=== PATIENT | male | born 1930 | race Caucasian/White ===

== ENCOUNTER 2016-10-30 11:42 | Inpatient (IN) | payer MEDICARE ==
[~2016-10-30] VITALS: Ht 180.3 cm; Wt 291.9 kg
[~2016-10-30 11:42] MED LIST: /WARF5TA; ALDA25TA2 PO; ALLO300T PO; ANTI25TA; ASPI1TAB PO; AVAP300T; BISO5TAB5 PO; CAPT12.5; CARV6.25 PO; COLC0.6T; COUM1TAB17 PO; COUM2TAB10 PO; DEMA20TA6 PO; ELIQ5TAB PO; FURO1TAB15 PO; FURO40TA2; FURO40TA2 PO; GLIM1TAB PO; LASI40TA PO; LASI80TA; LISI-542 PO; LISI25TA PO; LOPR50TA; SILV1CRE19 TOP; SIMV40TA2 PO; SYMB16INH INH; WARF-60 PO; ZOCO80TA PO; ZYLO300T4 PO
[2016-10-30 12:26] LABS: BASO # 0.1 K/mm3 (0.0-0.2); BASO % 0.8 % (0.0-1.0); EOS # 0.1 K/mm3 (0.0-0.50); EOS % 0.7 % (0.0-3.0); LARGE UNSTAINED CELL # 0.2 K/mm3 (0.0-0.4); LYMPH # 0.6 K/mm3 (1.5-4.5); LYMPH % 2.4 % (24.0-44.0); MEAN CORPUSCULAR HEMOGLOBIN 29.4 pg (27.0-33.0); MEAN CORPUSCULAR VOLUME 91.8 fl (80.0-96.0); MONO # 0.4 K/mm3 (0.0-0.8); MONO % 2.3 % (0.0-5.0); NEUTROPHILS # 15.5 K/mm3 (1.8-7.7); NEUTROPHILS % 92.8 % (36.0-66.0); PLATELET COUNT, AUTOMATED 179 k/mm3 (150-450); RED CELL DISTRIBUTION WIDTH 15.2 % (11.5-14.5); WHITE BLOOD COUNT 16.7 K/mm3 (4.0-10.0)
[2016-10-30 12:55] LABS: ALBUMIN/GLOBULIN RATIO 0.39 (1.00-1.93); ALKALINE PHOSPHATASE 89 U/L (45-117); ALT/SGPT 14 U/L (12-78); ANION GAP 6 MEQ/L (8-16); AST/SGOT 23 U/L (15-37); BILIRUBIN,DIRECT 0.2 MG/DL (0.0-0.2); BILIRUBIN,TOTAL 0.5 MG/DL (0.2-1.0); BLOOD UREA NITROGEN 21 MG/DL (7-18); CALCIUM LEVEL 9.5 MG/DL (8.8-10.2); CARBON DIOXIDE LEVEL 37 MEQ/L (21-32); CHLORIDE LEVEL 94 MEQ/L (98-107); GLOMERULAR FILTRATION RATE > 60.0 (>35); GLUCOSE, FASTING 94 MG/DL (83-110); POTASSIUM SERUM 4.3 MEQ/L (3.5-5.1); SODIUM LEVEL 137 MEQ/L (136-145); TOTAL PROTEIN 7.1 GM/DL (6.4-8.2)
[2016-10-30] MEDS ORDERED: IPRATROPIUM 0.5MG/ALBUTEROL 2.5MG INH SOL UD 3ML (DUONEB)(J7620) As Ordered ONE (13:34)
--- NOTE | 2016-10-30 13:37 | REP ---
Clinical: Shortness of breath. Technique: PA and lateral. Comparison: 07/03/2016. Findings: Cardiomegaly with pacemaker and valve replacement stable and unchanged. Lung herrera demonstrate chronic changes primarily involving the bilateral lung bases. Superimposed acute basilar atelectasis cannot be excluded. Along with possible small right acute versus chronic pleural reaction. No pneumothorax. Skeletal structures stable. Impression: Relatively stable examination as described above. Cannot exclude trace basilar atelectasis or small acute right pleural reaction. Signed by Sheldon Dickson MD 10/30/2016 01:28 P
[2016-10-30 13:46] LABS: ABG BASE EXCESS 10.7 (-2.0-2.0); ABG DEVICE NASAL CANN; ABG PARTIAL PRESSURE CO2 51.1 mmHg (35.0-45.0); ABG PARTIAL PRESSURE O2 111.7 mmHg (75.0-100.0); ABG STANDARD HCO3 34.5 MEQ/L (22.0-26.0); ABG TOTAL CO2 37.6 MEQ/L (23.0-31.0); ABG pH (ARTERIAL) 7.466 UNITS (7.350-7.450)
[2016-10-30] MEDS ORDERED: ISOVUE-370 76% 100ML VIAL (Q9967) As Ordered ONE (14:08)
--- NOTE | 2016-10-30 14:47 | REP ---
Clinical: Acute chest pain and shortness of breath. Technique: Axial contrast enhanced images from the thoracic inlet to the upper abdomen using 100 ml Isovue 370 intravenous contrast material with coronal and sagittal re-formations. Findings: Respiratory motion significantly limits evaluation. No obvious main or first order pulmonary emboli are identified and evaluation of the more distal pulmonary arterial system is limited. Thoracic aorta demonstrates atherosclerotic changes without aneurysm or dissection. Heart and pericardium demonstrate degenerative changes and evidence for aortic valve repair without cardiomegaly or pericardial effusion. Lung herrera demonstrate chronic changes along with bibasilar atelectasis and small pleural reactions (right greater than left). No pneumothorax. No adenopathy. Skeletal structures demonstrate degenerative changes without focal osseous abnormality Impression: Limited examination but without obvious pulmonary emboli. Mild bibasilar atelectasis and small pleural reactions (right greater than left). Signed by Sheldon Dickson MD 10/30/2016 02:38 P
[2016-10-30] MEDS ORDERED: BISO5TAB5 PO (16:39)
[2016-10-30] MEDS ORDERED: VITA500046 PO (16:39)
[2016-10-30] MEDS ORDERED: TORS20TA2 PO ×2 (16:39)
[2016-10-30] MEDS ORDERED: ELIQ5TAB PO (16:39)
[2016-10-30] MEDS ORDERED: LISI25TA PO (16:39)
[2016-10-30] MEDS ORDERED: IPRATROPIUM 0.5MG/ALBUTEROL 2.5MG INH SOL UD 3ML (DUONEB)(J7620) NEB PRN (18:30)
[2016-10-30] MEDS ORDERED: BISACODYL 5 MG TAB PO PRN (18:30)
[2016-10-30] MEDS ORDERED: ONDANSETRON 4MG/2ML VIAL (J2405) IV PRN (18:30)
--- NOTE | 2016-10-30 20:01 | ECGEPIP ---
Stationary ECG Study [facility] - ED Test Date: 2016-10-30 Pat Name: MITCH MILLIGAN Department: Room: - Gender: M Quality Tester: : 1930 Requested By: rGetel Dawson Order Number: [id number] Reading MD: Gretel Dawson Measurements Intervals [place] Rate: 72 P: MO: 0 QRS: 12 QRSD: 93 T: 43 QT: 368 QTc: 403 Interpretive Statements ATRIAL FIBRILLATION LOW QRS VOLTAGE IN EXTREMITY LEADS ABNORMAL RHYTHM ECG PRWP NSTTW ABNORMALITY Electronically Signed On 10-30-2016 20:01:14 EST by Gretel Dawson
[2016-10-30] MEDS: HumaLOG INSULIN (NovoLOG) PER UNIT SC SCH (21:00)
[2016-10-30] MEDS ORDERED: HEPARIN SOD (PORCINE) 5000 UNITS/ML VIAL SQ SCH (21:00)
[2016-10-30] MEDS ORDERED: DEXTROSE 50% 50 ML SYRINGE IV PRN (22:00)
[2016-10-30] MEDS ORDERED: GLUCOSE 4 GM CHEW TABLET PO PRN (22:00)
[2016-10-30] MEDS ORDERED: GLUCAGON FOR INJ 1 MG VIAL (J1610) SC PRN (22:00)
[2016-10-30 22:20] VITALS: BP 122/65
[2016-10-30] MEDS ORDERED: AZITHROMYCIN INJ 500MG VIAL (J0456) As Ordered ONE (22:28)
[2016-10-30] MEDS ORDERED: FUROSEMIDE 40 MG/4 ML VIAL (J1940) As Ordered ONE (22:28)
[2016-10-30] MEDS: AZITHROMYCIN INJ 500 MG, VIAL MATE ADAPTER 1 EACH in D5W 250 ML IV SCH (22:35)
[2016-10-30] MEDS: FUROSEMIDE 40 MG/4 ML VIAL (J1940) IV SCH (22:35)
[2016-10-30 23:06] LABS: INR 1.38
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
[2016-10-31] VITALS (7 sets, daily range): BP systolic 95–182; BP diastolic 50–79; O2SAT 99
[2016-10-31] MEDS: cefTRIAXone SOD 2 GM in D5W MINI-BAG PLUS 50 ML IV SCH ×2 (01:12→22:45)
[2016-10-31] MEDS ORDERED: IPRATROPIUM 0.5MG/ALBUTEROL 2.5MG INH SOL UD 3ML (DUONEB)(J7620) As Ordered ONE (01:58)
[2016-10-31] MEDS: IPRATROPIUM 0.5MG/ALBUTEROL 2.5MG INH SOL UD 3ML (DUONEB)(J7620) NEB SCH ×4 (02:07→20:00)
[2016-10-31] MEDS ORDERED: FUROSEMIDE 40 MG/4 ML VIAL (J1940) As Ordered ONE (03:25)
[2016-10-31] MEDS: FUROSEMIDE 40 MG/4 ML VIAL (J1940) IV SCH ×4 (03:34→22:45)
[2016-10-31 07:25] LABS: BASO % 0.2 % (0.0-1.0); EOS # 0.1 K/mm3 (0.0-0.50); EOS % 0.8 % (0.0-3.0); LARGE UNSTAINED CELL # 0.3 K/mm3 (0.0-0.4); LARGE UNSTAINED CELL % 2.5 % (0.0-4.0); LYMPH # 0.5 K/mm3 (1.5-4.5); LYMPH % 3.8 % (24.0-44.0); MEAN CORPUSCULAR HEMOGLOBIN 29.6 pg (27.0-33.0); MEAN CORPUSCULAR HGB CONC 32.2 g/dl (32.0-36.5); MEAN CORPUSCULAR VOLUME 91.9 fl (80.0-96.0); MONO # 0.5 K/mm3 (0.0-0.8); MONO % 4.1 % (0.0-5.0); NEUTROPHILS # 11.6 K/mm3 (1.8-7.7); NEUTROPHILS % 88.7 % (36.0-66.0); PLATELET COUNT, AUTOMATED 161 k/mm3 (150-450); RED CELL DISTRIBUTION WIDTH 14.3 % (11.5-14.5); WHITE BLOOD COUNT 13.1 K/mm3 (4.0-10.0)
[2016-10-31 07:44] LABS: ANION GAP 9 MEQ/L (8-16); BLOOD UREA NITROGEN 22 MG/DL (7-18); CALCIUM LEVEL 8.6 MG/DL (8.8-10.2); CARBON DIOXIDE LEVEL 34 MEQ/L (21-32); CHLORIDE LEVEL 94 MEQ/L (98-107); CHOLESTEROL LEVEL 104 MG/DL (<200); CREATININE FOR GFR 0.96 MG/DL (0.70-1.30); GLOMERULAR FILTRATION RATE > 60.0 (>35); GLUCOSE, FASTING 106 MG/DL (83-110); POTASSIUM SERUM 3.6 MEQ/L (3.5-5.1); SODIUM LEVEL 137 MEQ/L (136-145); TRIGLYCERIDES LEVEL 77 MG/DL (<150)
[2016-10-31] MEDS ORDERED: GLIMEPIRIDE 1 MG TABLET PO SCH (08:00)
[2016-10-31] MEDS ORDERED: HumaLOG INSULIN (NovoLOG) PER UNIT As Ordered ONE (09:17)
[2016-10-31] MEDS: HumaLOG INSULIN (NovoLOG) PER UNIT SC SCH ×4 (09:20→21:00)
[2016-10-31] MEDS: BISOPROLOL FUMARATE 5 MG TAB PO SCH (09:21)
[2016-10-31] MEDS: ALLOPURINOL 300 MG TAB PO SCH (09:21)
[2016-10-31] MEDS: LISINOPRIL *2.5 MG* TAB PO SCH (09:21)
[2016-10-31] MEDS: ASPIRIN 81 MG ENTERIC TAB PO SCH (09:21)
[2016-10-31] MEDS: APIXABAN 5 MG TAB (ELIQUIS) PO SCH ×2 (09:22→21:16)
[2016-10-31] MEDS: SYMBICORT 160/4.5MCG INHALER 6GM INH SCH ×2 (09:22→21:07)
[2016-10-31] MEDS ORDERED: ACETAMINOPHEN TAB 650MG DOSE (2X325MG) As Ordered ONE (12:32)
[2016-10-31] MEDS: ACETAMINOPHEN TAB 650MG DOSE (2X325MG) PO PRN (12:33)
--- NOTE | 2016-10-31 13:09 | EDDOCDS ---
Nurse's Notes [facility] Name: Mitch Milligan Age: 86 yrs Sex: Male : 1930 Arrival Date: 10/30/2016 Time: 11:42 Bed Admit Hold Private MD: David Henderson N Diagnosis: Shortness of breath-Hypoxia Presentation: 10/30 11:45 Presenting complaint: EMS states: weakness with SOB for the last couple of days. dy FSBS-99 mg/dl. Suicide/Homicide risk assessment- the patient denies having any suicidal and/or homicidal ideations and does not present with any other emotional, behavioral or mental health complaints. Status: Patient is not a manager client service or dependent. Transition of care: patient was not received from another setting of care. 11:45 Acuity: JESSICA Level 3 dy 11:45 Method Of Arrival: Ambulance dy 20:12 Adult Sepsis Screening: The patient does not have new or worsening altered mentation. af2 Patient's respiratory rate is less than 22. Systolic blood pressure is greater than 100. Patient has a qSOFA score of 0- Negative Sepsis Screen. Triage Assessment: 12:11 General: Appears in no apparent distress, Behavior is cooperative. dy Historical: - Allergies: No known drug Allergies; - Home Meds: 1. allopurinol 300 mg Oral tab 1 tab once daily 2. aspirin 81 mg Oral chew 1 tab once daily 3. bisoprolol fumarate 2.5 mg oral twice a day 4. Eliquis 5 mg oral tab 2 times per day 5. glimepiride 1 mg Oral tab 1 tab once daily 6. lisinopril 2.5 mg Oral tab once daily 7. simvastatin 80 mg Oral tab daily 8. Symbicort 160-4.5mcg act. 2 puffs BID 9. torsemide 20 mg oral tab 1 tab twice a day - PMHx: CAD; Hypercholesterolemia; Hypertension; - PSHx: Pacemaker insertion 2004; - Social history: Smoking status: No barriers to communication noted, The patient speaks fluent Frisian, Speaks appropriately for age. - Family history: Not pertinent. - : The pt / caregiver states he / she is on anticoagulants: Eliquis Unable to Verify Home Med List with the patient / caregiver. - Exposure Risk Screening:: None identified. Screenin:11 Screening information is obtained from the patient. Fall risk: At risk due to age, The af2 following interventions are performed due to a positive Fall Risk Screen: Fall Risk is added to Special Handling on the patient Summary Screen. A Fall Risk Bracelet was applied to the patient. Side Rails are placed in the up position. A Call Martinez is given with instruction to call for help when getting out of bed. Assistance ADL's: requires no assistance with activities of daily living. Abuse/DV Screen: The patient / caregiver reports he/she is: not in a situation that causes fear, pain or injury. Nutritional screening: No deficits noted. Advance Directives: Further advance directive information is declined. home support is adequate. Assessment: 12:08 General: Appears in no apparent distress, Behavior is appropriate for age, cooperative. dy Pain: Denies pain. Neurological: Level of Consciousness is awake, alert, obeys commands, Oriented to person, place, time. Respiratory: Airway is patent Respiratory effort is even, unlabored, Breath sounds are clear bilaterally. 13:03 General: Appears in no apparent distress, Behavior is appropriate for age, cooperative. dy Pain: Denies pain. Neurological: Level of Consciousness is awake, alert, obeys commands, Oriented to person, place, time, Reports weakness. Cardiovascular: Heart tones S1 S2. Cardiovascular: Edema is 2+ to left midcalf, left ankle, right midcalf and right ankle. Respiratory: Breath sounds are diminished bilaterally. Derm: Skin is thin, Skin is dry, Skin is pale. Derm: Skin is red, ashok with scabbed areas to bilateral lower extremities. 14:00 General: Appears in no apparent distress, Behavior is anxious, restless. dy 14:00 Pain: Denies pain. Respiratory: Airway is patent Respiratory effort is even, labored, dy Breath sounds are diminished bilaterally. 14:44 General: Appears in no apparent distress, Behavior is appropriate for age, cooperative. dy Pain: Denies pain. Neurological: Level of Consciousness is awake, alert, obeys commands, Oriented to person, place, time. Respiratory: Airway is patent Respiratory effort is even, unlabored. 15:08 General: Appears distressed, Behavior is agitated, anxious, pt calmed, repositioned on mk4 side sao2 probe replaced , pt resting more comf now, less anxious. 16:00 General: Appears in no apparent distress, attempted to ambulate pt with oxygen and sao2 mk4 meter on pt desaturated to 81 % on standing, pt placed back on stretcher and sitting comf drinking florecita marj, rept to Dr luna. 17:35 General: Appears in no apparent distress, comfortable, repositioned on side states mk4 comfortable . Respiratory: Airway is patent Respiratory effort is even, Respiratory pattern is regular, tachypnea the patient has moderate shortness of breath. 18:45 General: Appears in no apparent distress, comfortable, sat up on edge of bed for mk4 dinner, quite SOB on exertion returned to supine after dinner. 19:41 General: Appears in no apparent distress, Dr Mckeon in examining pt. mk4 19:53 General: Appears in no apparent distress, comfortable, laying on side watching tv mk4 denies needs. 20:09 General: Appears in no apparent distress, comfortable, Behavior is appropriate for age, af2 cooperative, assumed care of pt at this time, pt is without complaints at this time. nasal cannula reapplied.. Neurological: Level of Consciousness is awake, alert. Respiratory: Airway is patent Respiratory effort is even, unlabored. Derm: Skin is pale. 20:33 General: Appears in no apparent distress, Behavior is cooperative, pt pulled out his af2 piv, new piv placed by this comic writer to right wrist. telemetry reapplied.. Neurological: Level of Consciousness is awake, alert, obeys commands, Oriented to person, place, time. Cardiovascular: Rhythm is sinus rhythm No ectopy. Respiratory: Airway is patent Respiratory effort is even, unlabored, Breath sounds with rhonchi bilaterally. Breath sounds are diminished in left lower lobe, right lower lobe, left posterior lower lobe and right posterior lower lobe. Derm: Skin is pale. 21:47 General: report given to ed hold nurse. for further charting refer to [facility].. af2 Vital Signs: 12:04 BP 137 / 78; Pulse 80; Resp 18; Pulse Ox 93% on R/A; Weight 149.69 kg (R); Height 5 ft. jrd 11 in. (180.34 cm); 12:15 Temp 98.1; Pain 0/10; jrd 12:34 BP 144 / 67 (auto/); mk4 12:34 Pulse 76 MON; Pulse Ox 93% ; mk4 12:48 Pulse 70 MON; Pulse Ox 93% ; mk4 12:49 BP 173 / 91 (auto/); mk4 13:04 BP 168 / 81 (auto/); mk4 13:04 Pulse 78 MON; Pulse Ox 99% ; mk4 13:18 Pulse 86 MON; Pulse Ox 96% ; mk4 13:19 BP 172 / 84 (auto/); mk4 13:33 Pulse 74 MON; Pulse Ox 99% ; mk4 13:34 BP 172 / 95 (auto/); mk4 13:48 Pulse 76 MON; Pulse Ox 99% ; mk4 13:49 BP 193 / 84 (auto/); mk4 14:04 BP 188 / 91 (auto/); mk4 14:04 Pulse 76 MON; Pulse Ox 99% ; mk4 14:32 Pulse 82 MON; Pulse Ox 80% ; mk4 14:33 BP 233 / 118 (auto/); mk4 14:34 BP 215 / 95 (auto/); mk4 14:35 Pulse 80 MON; Pulse Ox 96% ; mk4 14:52 BP 143 / 63 (auto/); mk4 14:53 Pulse 66 MON; Pulse Ox 90% ; mk4 15:19 BP 192 / 79 (auto/); mk4 15:19 Pulse 102 MON; Pulse Ox 99% ; mk4 15:34 BP 182 / 74 (auto/); mk4 15:34 Pulse 80 MON; Pulse Ox 100% ; mk4 19:07 BP 126 / 83 (auto/); mk4 19:07 Pulse 80 MON; Pulse Ox 92% ; mk4 12:04 Body Mass Index 46.03 (149.69 kg, 180.34 cm) jrd ED Course: 11:43 Patient visited by Osman Barahona PCA. jrd 11:43 Patient moved to Waiting jrd 11:43 Patient moved to I8 / 16 jrd 11:44 David Henderson is Private Physician. jrd 11:48 Triage Initiated dy 12:05 Patient visited by Osman Barahona PCA. jrd 12:07 CBC with Diff Sent. dy 12:07 Cardiac Injury Profile Sent. dy 12:07 Liver Profile Sent. dy 12:07 MED Profile Sent. dy 12:07 Thyroid Stimulating Hormone Sent. dy 12:07 Troponin Sent. dy 12:08 The patient / caregiver is instructed regarding the plan of care and ED course. Patient dy has correct armband on for positive identification. Placed in gown. Bed in low position. Call light in reach. Side rails up X2. groundwater monitoring technician on. Pulse ox on. NIBP on. 12:08 Inserted saline lock: 20 gauge in right antecubital area and blood collected. The dy patient tolerated the procedure well. Labs drawn. (by ED staff). Sent per order to lab. 12:09 Patient visited by Shayan Hughes RN. dy 12:15 Patient visited by Osman Barahona PCA. jrd 12:34 No procedures done that require assistance. mk4 12:43 Rajiv Luna MD is Attending Physician. br1 12:54 Patient visited by Arvin Lopez PCA. jlf 12:55 Patient visited by Rajiv Luna MD. br1 13:05 Patient visited by Shayan Hughes RN. dy 13:15 BNP Sent. dy 13:40 Patient visited by Arvin Lopez PCA. jlf 13:44 -Arterial Blood Gas Sent. js11 14:00 Patient visited by Rajiv Luna MD. br1 14:14 Chest, 2 View (pa\E\lat) Returned. EDMS 14:32 Patient visited by Arvin Lopez PCA. jlf 15:07 Patient visited by Nicole Segura RN. mk4 15:13 CT Chest Angio R/O PE Returned. EDMS 15:56 Patient visited by Rajiv Luna MD. br1 16:32 Patient visited by Nicole Segura RN. mk4 16:53 Patient visited by Arvin Lopez PCA. jlf 17:00 [facility] Payment Agreement was scanned into [employer] and attached to record. jpb 17:27 Patient visited by Nicole Segura RN. mk4 17:56 Ginny Leach is Hospitalizing Provider. br1 20:09 Cleo Pinto RN is Primary Nurse. af2 20:11 Patient visited by Cleo Pinto RN. af2 20:12 Patient visited by Cleo Pinto RN. af2 20:25 EKG-ADULT Returned. EDMS 20:36 Patient visited by Cleo Pinto RN. af2 20:42 Patient moved to Admit Hold sls1 21:47 Patient visited by Cleo Pinto RN. af2 21:56 Patient moved to 20 sls1 21:56 Patient moved to Admit Hold [facility]1 10/31 02:46 Primary Nurse role handed off by Cleo Pinot RN sls1 Administered Medications: 10/30 13:44 Drug: Albuterol-Ipratropium 3 ml [ipratropium-albuterol 0.5 mg-3 mg(2.5 mg base)/3 mL js11 nebulization soln (3 mL)] Route: Inhalation; RT: 13:44 ABG's drawn from left radial artery allens test done and positive pressure held for 5 js11 minutes no bleeding noted specimen sent pt. tolerated well. Initial Med Neb Given as ordered Patient was instructed and evaluated on procedure Patient tolerated procedure well without adverse effect. Respiratory: Breath sounds are diminished bilaterally. Order Results: Lab Order: CBC with Diff; SPEC'M 10/30/16 12:05 Test: WHITE BLOOD COUNT; Value: 16.7; Range: 4.0-10.0; Abnormal: Above high normal; Units: K/mm3; Status: F Test: RED BLOOD COUNT; Value: 3.73; Range: 4.30-6.10; Abnormal: Below low normal; Units: M/mm3; Status: F Test: HEMOGLOBIN; Value: 11.0; Range: 14.0-18.0; Abnormal: Below low normal; Units: g/dl; Status: F Test: HEMATOCRIT; Value: 34.2; Range: 42.0-52.0; Abnormal: Below low normal; Units: %; Status: F Test: MEAN CORPUSCULAR VOLUME; Value: 91.8; Range: 80.0-96.0; Units: fl; Status: F Test: MEAN CORPUSCULAR HEMOGLOBIN; Value: 29.4; Range: 27.0-33.0; Units: pg; Status: F Test: MEAN CORPUSCULAR HGB CONC; Value: 32.0; Range: 32.0-36.5; Units: g/dl; Status: F Test: RED CELL DISTRIBUTION WIDTH; Value: 15.2; Range: 11.5-14.5; Abnormal: Above high normal; Units: %; Status: F Test: PLATELET COUNT, AUTOMATED; Value: 179; Range: 150-450; Units: k/mm3; Status: F Test: NEUTROPHILS %; Value: 92.8; Range: 36.0-66.0; Abnormal: Above high normal; Units: %; Status: F Test: LYMPH %; Value: 2.4; Range: 24.0-44.0; Abnormal: Below low normal; Units: %; Status: F Test: MONO %; Value: 2.3; Range: 0.0-5.0; Units: %; Status: F Test: EOS %; Value: 0.7; Range: 0.0-3.0; Units: %; Status: F Test: BASO %; Value: 0.8; Range: 0.0-1.0; Units: %; Status: F Test: LARGE UNSTAINED CELL %; Value: 1.0; Range: 0.0-4.0; Units: %; Status: F Test: NEUTROPHILS #; Value: 15.5; Range: 1.8-7.7; Abnormal: Above high normal; Units: K/mm3; Status: F Test: LYMPH #; Value: 0.6; Range: 1.5-4.5; Abnormal: Below low normal; Units: K/mm3; Status: F Test: MONO #; Value: 0.4; Range: 0.0-0.8; Units: K/mm3; Status: F Test: EOS #; Value: 0.1; Range: 0.0-0.50; Units: K/mm3; Status: F Test: BASO #; Value: 0.1; Range: 0.0-0.2; Units: K/mm3; Status: F Test: LARGE UNSTAINED CELL #; Value: 0.2; Range: 0.0-0.4; Units: K/mm3; Status: F Lab Order: Cardiac Injury Profile; SPEC'M 10/30/16 12:05 Test: CPK CREATINE PHOSPHOKINASE; Value: 40; Range: 39-308; Units: U/L; Status: F Test: CK-MB VALUE MASS; Value: 1.5; Range: 0.0-3.6; Units: NG/ML; Status: F Test: MB/CK RELATIVE INDEX; Value: 3.75; Range: < OR =4; Status: F Test Note: ; DIAGNOSIS CRITERIA MMB ng/ml Relative Index (RI) NON-AMI < or = 5 N/A SHELBY [place]ONE > 5 < or = 4 AMI > 5 > 4 Lab Order: Liver Profile; SPEC'M 10/30/16 12:05 Test: AST/SGOT; Value: 23; Range: 15-37; Units: U/L; Status: F Test: ALT/SGPT; Value: 14; Range: 12-78; Units: U/L; Status: F Test: ALKALINE PHOSPHATASE; Value: 89; Range: 45-117; Units: U/L; Status: F Test: BILIRUBIN,TOTAL; Value: 0.5; Range: 0.2-1.0; Units: MG/DL; Status: F Test: BILIRUBIN,DIRECT; Value: 0.2; Range: 0.0-0.2; Units: MG/DL; Status: F Test: TOTAL PROTEIN; Value: 7.1; Range: 6.4-8.2; Units: GM/DL; Status: F Test: ALBUMIN; Value: 2.0; Range: 3.2-5.2; Abnormal: Below low normal; Units: GM/DL; Status: F Test: ALBUMIN/GLOBULIN RATIO; Value: 0.39; Range: 1.00-1.93; Abnormal: Below low normal; Status: F Lab Order: MED Profile; SPEC10/30/16 12:05 Test: GLUCOSE, FASTING; Value: 94; Range: 83-110; Units: MG/DL; Status: F Test: BLOOD UREA NITROGEN; Value: 21; Range: 7-18; Abnormal: Above high normal; Units: MG/DL; Status: F Test: CREATININE FOR GFR; Value: 0.90; Range: 0.70-1.30; Units: MG/DL; Status: F Test: GLOMERULAR FILTRATION RATE; Value: > 60.0; Range: >35; Status: F Test: SODIUM LEVEL; Value: 137; Range: 136-145; Units: MEQ/L; Status: F Test: POTASSIUM SERUM; Value: 4.3; Range: 3.5-5.1; Units: MEQ/L; Status: F Test: CHLORIDE LEVEL; Value: 94; Range: 98-107; Abnormal: Below low normal; Units: MEQ/L; Status: F Test: CARBON DIOXIDE LEVEL; Value: 37; Range: 21-32; Abnormal: Above high normal; Units: MEQ/L; Status: F Test: ANION GAP; Value: 6; Range: 8-16; Abnormal: Below low normal; Units: MEQ/L; Status: F Test: CALCIUM LEVEL; Value: 9.5; Range: 8.8-10.2; Units: MG/DL; Status: F Test Note: ; Units are mL/min/1.73 m2 Chronic Kidney Disease Staging per NKF: Stage I & II GFR >=60 Normal to Mildly Decreased Stage III GFR 30-59 Moderately Decreased Stage IV GFR 15-29 Severely Decreased Stage V GFR <15 Very Little GFR Left ESRD GFR <15 on SECTION REPAIRER Lab Order: Thyroid Stimulating Hormone; SPEC'10/30/16 12:05 Test: THYROID STIMULATING HORMONE; Value: 1.990; Range: 0.358-3.740; Units: uIU/ML; Status: F Lab Order: Troponin; SPEC' 10/30/16 12:05 Test: TROPONIN I; Value: 0.02; Range: < 0.10; Units: NG/ML; Status: F Test Note: ; Troponin I Reference Interval for Tout LOCI: 99th Percentile= 0.00-0.045 ng/ml Risk Stratification: <= 0.10 ng/ml Decreased Risk for Adverse Clinical Events. 0.10-1.50 ng/ml Increased Risk for Adverse Clinical Events. Evaluation of additional criterion and/or repeat testing in 2-6 hours is suggested to rule out myocardial damage. >= 1.50 ng/ml Indicative of Myocardial Injury. Lab Order: BNP; SPEC'10/30/16 12:05 Test: BRAIN NATRIURETIC PEPTIDE; Value: 382; Range: <100; Abnormal: Above high normal; Units: PG/ML; Status: F Lab Order: -Arterial Blood Gas; SPEC'10/30/16 13:35 Test: ABG pH (ARTERIAL); Value: 7.466; Range: 7.350-7.450; Abnormal: Above high normal; Units: UNITS; Status: F Test: ABG PARTIAL PRESSURE CO2; Value: 51.1; Range: 35.0-45.0; Abnormal: Above high normal; Units: mmHg; Status: F Test: ABG PARTIAL PRESSURE O2; Value: 111.7; Range: 75.0-100.0; Abnormal: Above high normal; Units: mmHg; Status: F Test: ABG TOTAL CO2; Value: 37.6; Range: 23.0-31.0; Abnormal: Above high normal; Units: MEQ/L; Status: F Test: ABG HCO3; Value: 36.0; Range: 22.0-26.0; Abnormal: Above high normal; Units: MEQ/L; Status: F Test: ABG BASE EXCESS; Value: 10.7; Range: -2.0-2.0; Abnormal: Above high normal; Status: F Test: ABG STANDARD HCO3; Value: 34.5; Range: 22.0-26.0; Abnormal: Above high normal; Units: MEQ/L; Status: F Test: ABG O2 SATURATION; Value: 98.4; Range: 95.0-99.0; Units: %; Status: F Test: ABG DEVICE; Value: NASAL MARIBEL; Status: F Lab Order: -Influenza A&B Rapid Antigen - Nose; SPEC'M 10/30/16 13:09 Test: INFLUENZA A RAPID SCR by ICA; Value: INFLUENZA A RESULTS NEGATIVE; Status: F Test: INFLUENZA A RAPID SCR by ICA; Value: Comments:; Status: F Test: INFLUENZA B RAPID SCR by ICA; Value: INFLUENZA B RESULTS NEGATIVE; Status: F Test Note: ; The Influenza test is a direct rapid immunoassay for the qualitative detection of Influenza viral antigen. Cell culture (Viral Culture) testing should be considered to confirm NEGATIVE results and to assist in detecting other viruses that can provide similar clinical symptoms. Please contact the lab within 24 hours [phone] if confirmatory testing is desired. Lab Order: CARDIAC MARKER PANEL; SPEC'M 10/30/16 22:33 Test: CPK CREATINE PHOSPHOKINASE; Value: 49; Range: 39-308; Units: U/L; Status: F Test: CK-MB VALUE MASS; Value: 1.6; Range: 0.0-3.6; Units: NG/ML; Status: F Test: MB/CK RELATIVE INDEX; Value: 3.26; Range: < OR =4; Status: F Test: TROPONIN I; Value: < 0.02; Range: < 0.10; Units: NG/ML; Status: F Test Note: ; DIAGNOSIS CRITERIA MMB ng/ml Relative Index (RI) NON-AMI < or = 5 N/A [place]BY [place]ONE > 5 < or = 4 AMI > 5 > 4 Lab Order: BASIC METABOLIC PROFILE; 10/31/16 07:04 Test: GLUCOSE, FASTING; Value: 106; Range: 83-110; Units: MG/DL; Status: F Test: BLOOD UREA NITROGEN; Value: 22; Range: 7-18; Abnormal: Above high normal; Units: MG/DL; Status: F Test: CREATININE FOR GFR; Value: 0.96; Range: 0.70-1.30; Units: MG/DL; Status: F Test: GLOMERULAR FILTRATION RATE; Value: > 60.0; Range: >35; Status: F Test: SODIUM LEVEL; Value: 137; Range: 136-145; Units: MEQ/L; Status: F Test: POTASSIUM SERUM; Value: 3.6; Range: 3.5-5.1; Units: MEQ/L; Status: F Test: CHLORIDE LEVEL; Value: 94; Range: 98-107; Abnormal: Below low normal; Units: MEQ/L; Status: F Test: CARBON DIOXIDE LEVEL; Value: 34; Range: 21-32; Abnormal: Above high normal; Units: MEQ/L; Status: F Test: ANION GAP; Value: 9; Range: 8-16; Units: MEQ/L; Status: F Test: CALCIUM LEVEL; Value: 8.6; Range: 8.8-10.2; Abnormal: Below low normal; Units: MG/DL; Status: F Test Note: ; Units are mL/min/1.73 m2 Chronic Kidney Disease Staging per NKF: Stage I & II GFR >=60 Normal to Mildly Decreased Stage III GFR 30-59 Moderately Decreased Stage IV GFR 15-29 Severely Decreased Stage V GFR <15 Very Little GFR Left ESRD GFR <15 on SECTION REPAIRER Lab Order: CBC WITH DIFFERENTIAL; 10/31/16 07:04 Test: WHITE BLOOD COUNT; Value: 13.1; Range: 4.0-10.0; Abnormal: Above high normal; Units: K/mm3; Status: F Test: RED BLOOD COUNT; Value: 3.34; Range: 4.30-6.10; Abnormal: Below low normal; Units: M/mm3; Status: F Test: HEMOGLOBIN; Value: 9.9; Range: 14.0-18.0; Abnormal: Below low normal; Units: g/dl; Status: F Test: HEMATOCRIT; Value: 30.7; Range: 42.0-52.0; Abnormal: Below low normal; Units: %; Status: F Test: MEAN CORPUSCULAR VOLUME; Value: 91.9; Range: 80.0-96.0; Units: fl; Status: F Test: MEAN CORPUSCULAR HEMOGLOBIN; Value: 29.6; Range: 27.0-33.0; Units: pg; Status: F Test: MEAN CORPUSCULAR HGB CONC; Value: 32.2; Range: 32.0-36.5; Units: g/dl; Status: F Test: RED CELL DISTRIBUTION WIDTH; Value: 14.3; Range: 11.5-14.5; Units: %; Status: F Test: PLATELET COUNT, AUTOMATED; Value: 161; Range: 150-450; Units: k/mm3; Status: F Test: NEUTROPHILS %; Value: 88.7; Range: 36.0-66.0; Abnormal: Above high normal; Units: %; Status: F Test: LYMPH %; Value: 3.8; Range: 24.0-44.0; Abnormal: Below low normal; Units: %; Status: F Test: MONO %; Value: 4.1; Range: 0.0-5.0; Units: %; Status: F Test: EOS %; Value: 0.8; Range: 0.0-3.0; Units: %; Status: F Test: BASO %; Value: 0.2; Range: 0.0-1.0; Units: %; Status: F Test: LARGE UNSTAINED CELL %; Value: 2.5; Range: 0.0-4.0; Units: %; Status: F Test: NEUTROPHILS #; Value: 11.6; Range: 1.8-7.7; Abnormal: Above high normal; Units: K/mm3; Status: F Test: LYMPH #; Value: 0.5; Range: 1.5-4.5; Abnormal: Below low normal; Units: K/mm3; Status: F Test: MONO #; Value: 0.5; Range: 0.0-0.8; Units: K/mm3; Status: F Test: EOS #; Value: 0.1; Range: 0.0-0.50; Units: K/mm3; Status: F Test: BASO #; Value: 0.0; Range: 0.0-0.2; Units: K/mm3; Status: F Test: LARGE UNSTAINED CELL #; Value: 0.3; Range: 0.0-0.4; Units: K/mm3; Status: F Lab Order: HEMOGLOBIN A1C; [facility] 10/30/16 22:33 Test: HEMOGLOBIN A1c; Value: 5.8; Range: 4.5-6.2; Units: %; Status: F Test: ESTIMATED AVERAGE GLUCOSE; Value: 120; Range: 60-110; Abnormal: Above high normal; Units: MG/DL; Status: F Lab Order: Fingerstick Blood Sugar; [facility] 10/30/16 22:42 Test: BEDSIDE GLUCOSE; Value: 121; Range: 83-110; Abnormal: Above high normal; Units: MG/DL; Status: F Lab Order: PT & APTT; [facility] 10/30/16 22:55 Test: PROTHROMBIN TIME; Value: 17.1; Range: 12.3-14.5; Abnormal: Above high normal; Units: SECONDS; Status: F Test: INR; Value: 1.38; Status: F Test: PARTIAL THROMBOPLASTIN TIME; Value: 37.3; Range: 26.6-37.1; Abnormal: Above high normal; Units: SECONDS; Status: F Test Note: ; THERAPUTIC HUMAN INR VALUES INDICATIONS NORMAL RANGES PROPHYLAXIS/TREATMENT OF: VENOUS THROMBOSIS 2.0-3.0 PULMONARY EMBOLISM 2.0-3.0 PREVENTION OF SYSTEMIC EMBOLISM FROM: TISSUE HEART VALVES 2.0-3.0 ACUTE MYOCARDIAL INFARCTION 2.0-3.0 VALVULAR HEART DISEASE 2.0-3.0 ATRIAL FIBRILLATION 2.0-3.0 MECHANICAL VALVES(HIGH RISK) 2.5-3.5 RECURRENT MYOCARDIAL INFARCTION 2.5-3.5 Lab Order: CARDIAC MARKER PANEL; [facility] 10/31/16 07:04 Test: CPK CREATINE PHOSPHOKINASE; Value: 32; Range: 39-308; Abnormal: Below low normal; Units: U/L; Status: F Test: CK-MB VALUE MASS; Value: 1.2; Range: 0.0-3.6; Units: NG/ML; Status: F Test: MB/CK RELATIVE INDEX; Value: 3.75; Range: < OR =4; Status: F Test: TROPONIN I; Value: 0.02; Range: < 0.10; Units: NG/ML; Status: F Test Note: ; DIAGNOSIS CRITERIA MMB ng/ml Relative Index (RI) NON-AMI < or = 5 N/A [place] > 5 < or = 4 AMI > 5 > 4 Lab Order: CARDIAC RISK PROFILE; SPEC'M 10/31/16 07:04 Test: TRIGLYCERIDES LEVEL; Value: 77; Range: <150; Units: MG/DL; Status: F Test: CHOLESTEROL LEVEL; Value: 104; Range: <200; Units: MG/DL; Status: F Test: HDL CHOLESTEROL; Value: 33; Range: >40; Abnormal: Below low normal; Units: MG/DL; Status: F Test: LDL CHOLESTEROL; Value: 55.6; Range: <100; Units: MG/DL; Status: F Test: NON-HDL-C; Value: 71; Units: MG/DL; Status: F Test: CHOLESTEROL RISK RATIO; Value: 3.151; Range: <5; Status: F Lab Order: THYROID STIMULATING HORMONE; SPEC'M 10/31/16 07:04 Test: THYROID STIMULATING HORMONE; Value: 1.350; Range: 0.358-3.740; Units: uIU/ML; Status: F Lab Order: Fingerstick Blood Sugar; SPEC' 10/31/16 11:53 Test: BEDSIDE GLUCOSE; Value: 81; Range: 83-110; Abnormal: Below low normal; Units: MG/DL; Status: F Radiology Order: EKG-ADULT Test: EKG-ADULT REASON FOR EXAMINATION: wekaness; Stationary ECG Study; [facility] - ED; ; Test Date: 2016-10-30; Pat Name: MITCH MILLIGAN Department:; Room: -; Gender: M [employer]boat [employer]:; : 1930 Requested By: Gretel Dawson; Order Number: [id number] Reading MD: Gretel Dawson; Measurements; Intervals [place]; Rate: 72 P:; [place]: 0 QRS: 12; QRSD: 93 T: 43; QT: 368; QTc: 403; Interpretive Statements; ATRIAL FIBRILLATION; LOW QRS VOLTAGE IN EXTREMITY LEADS; ABNORMAL RHYTHM ECG; PRWP; NSTTW ABNORMALITY; Electronically Signed On 10-30-2016 20:01:14 EST by Gretel Dawson; Radiology Order: Chest, 2 View (pa\E\lat) Test: Chest, 2 View (pa\E\lat) REASON FOR EXAMINATION: Shortness of Breath; Clinical: Shortness of breath.; ; Technique: PA and lateral.; ; Comparison: 07/03/2016.; ; Findings:; Cardiomegaly with pacemaker and valve replacement stable and unchanged. Lung; herrera demonstrate chronic changes primarily involving the bilateral lung bases.; Superimposed acute basilar atelectasis cannot be excluded. Along with possible; small right acute versus chronic pleural reaction. No pneumothorax. Skeletal; structures stable.; ; Impression:; Relatively stable examination as described above. Cannot exclude trace basilar; atelectasis or small acute right pleural reaction.; ; ; Signed by; Sheldon Dickson MD 10/30/2016 01:28 P; Radiology Order: CT Chest Angio R/O PE Test: CT Chest Angio R/O PE REASON FOR EXAMINATION: Shortness of Breath; Clinical: Acute chest pain and shortness of breath.; ; Technique: Axial contrast enhanced images from the thoracic inlet to the upper; abdomen using 100 ml Isovue 370 intravenous contrast material with coronal and; sagittal re-formations.; ; Findings:; Respiratory motion significantly limits evaluation. No obvious main or first; order pulmonary emboli are identified and evaluation of the more distal pulmonary; arterial system is limited. Thoracic aorta demonstrates atherosclerotic changes; without aneurysm or dissection. Heart and pericardium demonstrate degenerative; changes and evidence for aortic valve repair without cardiomegaly or pericardial; effusion. Lung herrera demonstrate chronic changes along with bibasilar; atelectasis and small pleural reactions (right greater than left). No; pneumothorax. No adenopathy. Skeletal structures demonstrate degenerative; changes without focal osseous abnormality; ; Impression:; Limited examination but without obvious pulmonary emboli.; Mild bibasilar atelectasis and small pleural reactions (right greater than left).; ; ; ; Signed by; Sheldon Dickson MD 10/30/2016 02:38 P; Outcome: 17:56 Decision to Hospitalize by Provider. br1 10/31 12:42 Discharge Assessment: Patient awake and alert. patient administered narcotics - no. The ead following High Risk Discharge criteria are identified: None. Admitted to ICU accompanied by nurse, via stretcher, on monitor, with chart, Other PCU pt to room 3204. Condition: stable. No special radiology studies were completed. Property :Personal belongings accompany Pt. 13:08 Patient left the ED. [facility] Signatures: Dispatcher [employer] Elyssa Parra RN Shayan Sauceda mcp RN RN Rajiv Tidwell MD MD br1 Salazar [id number] Gypsy Alfred, RN RN sls1 Zack Jin Margaret RN RN [email or web address] Arvin Lopez, CONTINUITY CLERK CONTINUITY CLERK Kimmy Thomas,RN RN Osman Ngo, CONTINUITY CLERK CONTINUITY CLERK Cleo Roth,RN RN af2 Corrections: (The following items were deleted from the chart) 10/30 13:05 12:08 Derm: Skin is pink, warm & dry. dy dy 13:17 11:51 Home Meds: torsemide 20 mg oral tab 1 tab once daily; dy dy MTDD
--- NOTE | 2016-10-31 13:09 | EDDOCDS ---
Physician Documentation [facility] Name: Jj Macias Age: 86 yrs Sex: Male : 1930 Arrival Date: 10/30/2016 Time: 11:42 Bed Admit Hold Private MD: David Henderson N Disposition: 10/30/16 17:56 Hospitalization ordered by Ginny Leach for Inpatient Admission. Preliminary diagnosis is Shortness of breath - Hypoxia. - Bed requested for M ICU. - Status is Inpatient Admission. mcp - Condition is Stable. - Problem is new. - Symptoms are unchanged. Historical: - Allergies: No known drug Allergies; - Home Meds: 1. allopurinol 300 mg Oral tab 1 tab once daily 2. aspirin 81 mg Oral chew 1 tab once daily 3. bisoprolol fumarate 2.5 mg oral twice a day 4. Eliquis 5 mg oral tab 2 times per day 5. glimepiride 1 mg Oral tab 1 tab once daily 6. lisinopril 2.5 mg Oral tab once daily 7. simvastatin 80 mg Oral tab daily 8. Symbicort 160-4.5mcg act. 2 puffs BID 9. torsemide 20 mg oral tab 1 tab twice a day - PMHx: CAD; Hypercholesterolemia; Hypertension; - PSHx: Pacemaker insertion 2004; - Social history: Smoking status: No barriers to communication noted, The patient speaks fluent Palestinian, Speaks appropriately for age. - Family history: Not pertinent. - : The pt / caregiver states he / she is on anticoagulants: Eliquis Unable to Verify Home Med List with the patient / caregiver. - Exposure Risk Screening:: None identified. Vital Signs: 10/30 12:04 BP 137 / 78; Pulse 80; Resp 18; Pulse Ox 93% on R/A; Weight 149.69 kg / 330.01 lbs (R); jrd Height 5 ft. 11 in. (180.34 cm); 12:15 Temp 98.1; Pain 0/10; jrd 12:34 BP 144 / 67 (auto/); mk4 12:34 Pulse 76 MON; Pulse Ox 93% ; mk4 12:48 Pulse 70 MON; Pulse Ox 93% ; mk4 12:49 BP 173 / 91 (auto/); mk4 13:04 BP 168 / 81 (auto/); mk4 13:04 Pulse 78 MON; Pulse Ox 99% ; mk4 13:18 Pulse 86 MON; Pulse Ox 96% ; mk4 13:19 BP 172 / 84 (auto/); mk4 13:33 Pulse 74 MON; Pulse Ox 99% ; mk4 13:34 BP 172 / 95 (auto/); mk4 13:48 Pulse 76 MON; Pulse Ox 99% ; mk4 13:49 BP 193 / 84 (auto/); mk4 14:04 BP 188 / 91 (auto/); mk4 14:04 Pulse 76 MON; Pulse Ox 99% ; mk4 14:32 Pulse 82 MON; Pulse Ox 80% ; mk4 14:33 BP 233 / 118 (auto/); mk4 14:34 BP 215 / 95 (auto/); mk4 14:35 Pulse 80 MON; Pulse Ox 96% ; mk4 14:52 BP 143 / 63 (auto/); mk4 14:53 Pulse 66 MON; Pulse Ox 90% ; mk4 15:19 BP 192 / 79 (auto/); mk4 15:19 Pulse 102 MON; Pulse Ox 99% ; mk4 15:34 BP 182 / 74 (auto/); mk4 15:34 Pulse 80 MON; Pulse Ox 100% ; mk4 19:07 BP 126 / 83 (auto/); mk4 19:07 Pulse 80 MON; Pulse Ox 92% ; mk4 12:04 Body Mass Index 46.03 (149.69 kg, 180.34 cm) jrd MDM: 11:44 Material Hauler/Pulse Ox/q 15 min VS ordered. sd1 11:44 IV Saline Lock ordered. sd1 11:44 Oxygen at 4L/Min NC or Home dosage ordered. sd1 11:44 Rhythm Strip to chart ordered. sd1 11:45 CBC with Diff Ordered. EDMS 11:45 Cardiac Injury Profile Ordered. EDMS 11:45 Liver Profile Ordered. EDMS 11:45 MED Profile Ordered. EDMS 11:45 Thyroid Stimulating Hormone Ordered. EDMS 11:45 Troponin Ordered. EDMS 11:46 ECG WITH READING ER PHYS+CARDIAG ordered. EDMS 12:56 BNP Ordered. EDMS 12:56 Call Respiratory ordered. br1 12:56 Albuterol-Ipratropium 3 ml Inhalation once ordered. br1 12:57 Chest, 2 View (pa\E\lat) Ordered. EDMS 12:57 -Arterial Blood Gas Ordered. EDMS 12:57 -Influenza A&B Rapid Antigen - Nose Ordered. EDMS 12:58 Call Respiratory complete. jlf 13:05 CBC with Diff Reviewed. br1 13:05 Liver Profile Reviewed. br1 13:05 MED Profile Reviewed. br1 13:05 Cardiac Injury Profile Reviewed. br1 13:05 Thyroid Stimulating Hormone Reviewed. br1 13:05 Troponin Reviewed. br1 13:53 -Arterial Blood Gas Reviewed. br1 13:53 -Influenza A&B Rapid Antigen - Nose Reviewed. br1 14:01 CT Chest Angio R/O PE Ordered. EDMS 14:18 BNP Reviewed. br1 14:18 Chest, 2 View (pa\E\lat) Reviewed. br1 14:43 Ambulate Patient wt Pulse Oximetry ordered. br1 14:51 PHYSICAL THERAPY EVAL & TREAT+PT ordered. EDMS 15:11 PHYSICAL THERAPY EVAL & TREAT ordered. EDMS 15:58 BED REQUEST+ADM ordered. EDMS 16:59 Financial registration complete. jpb 17:00 [facility] Payment Agreement was scanned into Message [employer] and attached to record. jpb 17:28 REGULAR+DIET ordered. EDMS 18:30 Admission / Observation Status ordered. EDMS 18:30 ECHOCARD,DOPPLER/COLOR FLOW ordered. EDMS 18:30 ELECTROCARDIOGRAM ADULT ordered. EDMS 18:30 NO ADDED SALT DIET ordered. EDMS 18:30 CARDIAC MARKER PANEL Ordered. EDMS 18:32 PHYSICAL THERAPY EVAL & TREAT ordered. EDMS 19:32 BASIC METABOLIC PROFILE Ordered. EDMS 19:32 CBC WITH DIFFERENTIAL Ordered. EDMS 19:32 CARDIAC MARKER PANEL Ordered. EDMS 21:51 HEMOGLOBIN A1C Ordered. EDMS 22:52 PT & APTT Ordered. EDMS 01 05:06 CARDIAC MARKER PANEL Ordered. EDMS 05:06 CARDIAC RISK PROFILE Ordered. EDMS 05:07 THYROID STIMULATING HORMONE Ordered. EDMS 12:06 Fingerstick Blood Sugar Ordered. EDMS Administered Medications: 10/30 13:44 Drug: Albuterol-Ipratropium 3 ml [ipratropium-albuterol 0.5 mg-3 mg(2.5 mg base)/3 mL js11 nebulization soln (3 mL)] Route: Inhalation; Signatures: Dispatcher [employer] EDSD Gretel Dawson MD MD sd1 Elyssa Irwin, RN RN Shayan Vee, RN RN dy Rajiv Iraheta MD MD br1 Zack Jin Margaret RN RN mk4 Arvin Lopez, NEIDA INTERIOR DECORATOR jlf Maria Dolores Anguiano, RN RN sls2 Salazar Quiroga js11 The chart was reviewed and I authenticate all verbal orders and agree with the evaluation and treatment provided.Corrections: (The following items were deleted from the chart) 12:08 11:44 Accucheck ordered. sd1 dy 13:17 11:51 Home Meds: torsemide 20 mg oral tab 1 tab once daily; dy dy 22:57 22:52 PROTHROMBIN TIME PROFILE\E\INR ordered. EDMS EDMS 10/31 05:06 10/30 19:32 CARDIAC MARKER PANEL ordered. EDMS EDMS 10/31 05:06 10/30 21:52 CARDIAC RISK PROFILE ordered. EDMS EDMS 10/31 05:06 10/30 21:52 THYROID STIMULATING HORMONE ordered. EDMS EDMS Attachments: 17:00 [facility] Payment Agreement jpb MTDD
[2016-10-31] MEDS ORDERED: SLF 3 ML SYR IV PRN (13:30)
--- NOTE | 2016-10-31 13:37 | IPNPDOC ---
Assessment/Plan Date Seen The patient was seen on 10/31/16. Problems Problems: (1) Shortness of breath Status: Acute Response to Treatment: Improving Discussed With: Patient Problem Specific Plan: Monitor Clinically Problem Text: Appears secondary to decompensated heart failure. Echo pending. Continue IV lasix. Supplemental O2. Baseline requirements are 2L via nasal cannula. (2) CAD (coronary artery disease) Status: Chronic Problem Text: Continue ASA, lisinopril, zebeta. (3) Afib Status: Chronic Problem Specific Plan: Monitor Clinically Problem Text: Rater controlled. Continue Zebeta. Continue Eliquis. (4) Non-compliance Status: Chronic Discussed With: Patient Problem Text: Further complicating factor to his medical care. (5) Morbid obesity Status: Acute Problem Text: Further complicating factor to his medical care. (6) HTN (hypertension) Status: Chronic Problem Specific Plan: Monitor Clinically (7) Dyslipidemia Status: Chronic (8) Gout Status: Chronic Discussed With: Patient Plan / VTE VTE Prophylaxis Ordered?: Yes (NOAC) Plan Diet: Continue Current Activity: Continue Current Respiratory: Wean Oxygen Diagnostics: Repeat Labs in AM Subjective Review of Systems CC/HPI The patient is a 86-year-old male admitted with a reason for visit of SOB. General: Denies: Chills, Fatigue, Malaise, Night Sweats, Normal Appetite, Other Symptoms, ROS Unobtainable Constitutional: Denies: Chills, Fatigue, Fever, Lethargy, Malaise, Night Sweats , Other, Weakness, Weight Loss Eyes: Denies: Conjunctivae inflammation, Eyelid inflammation, Other, Pain, Redness, Vision change ENT: Denies: Dysphagia, Ear Pain, Epistaxis, Head Aches, Other Symptoms, Post Nasal Drip, Sinus Congestion, Sore Throat Skin: Denies: Breakdown, Bruising, Dry, Itching, Jaundice, Lesions, Nail Changes, Other, Rash Pulmonary: Reports: Cough, Denies: Dyspnea, Other Symptoms, Pleuritic Chest Pain Cardiovascular: Denies: Chest Pain, Edema, Lt Headedness, Orthopnea, Other Symptoms, Palpitations, Paroxysmal Noc. Dyspnea Gastrointestinal: Denies: Abdominal Pain, Constipation, Diarrhea, Hematochezia , Melena, Nausea, Other Symptoms, Vomiting Objective Physical Examination General Exam: Positive: Alert, Cooperative, No Acute Distress Eye Exam: Positive: Conjunctiva & lids normal, PERRLA ENT Exam: Positive: Atraumatic Neck Exam: Positive: Supple Chest Exam: Positive: Clear to auscultation, Diminished Heart Exam: Positive: Rate Normal Abdomen Exam: Positive: Normal bowel sounds, Other (obese), Soft, Negative: Tenderness Extremity Exam: Positive: Edema Psych Exam: Positive: Mental status NL, Mood NL, Oriented x 3 Vital Signs/I&O Vital Signs Date Time Temp Pulse Resp B/P Pulse Ox O2 Delivery O2 Flow Rate FiO2 10/31/16 09:21 145/69 10/31/16 09:21 80 10/31/16 09:00 Nasal Cannula 3.0 10/31/16 08:00 96.9 18 100 I&O- Last 24 Hours up to 6 AM 10/31/16 06:00 Intake Total 545 ml Output Total 250 ml Balance 295 ml Laboratory Data Labs 24H Laboratory Tests 2 10/30/16 13:35: Arterial Blood pH 7.466H, Arterial Blood Partial Pressure CO2 51.1H, Arterial Blood Partial Pressure O2 111.7H, Arterial Blood Total CO2 37.6H, Arterial Blood HCO3 36.0H, Arterial Blood Base Excess 10.7H, Arterial Blood Oxygen Saturation 98.4, Blood Gas Bicarbonate Standard 34.5H, Oxygen Delivery Device NASAL MARIBEL 10/30/16 22:33: Creatine Kinase MB 1.6, Creatine Kinase MB Relative Index 3.26, Estimated Mean Plasma Glucose 120H, Hemoglobin A1c 5.8, Total Creatine Kinase 49, Troponin I < 0.02 10/30/16 22:42: Bedside Glucose (Misc Panel) 121H 10/30/16 22:55: Activated Partial Thromboplast Time 37.3H, Prothromb Time International Ratio 1.38, Prothrombin Time 17.1H 10/31/16 07:04: Anion Gap 9, White Blood Count 13.1H, Red Blood Count 3.34L, Hemoglobin 9.9L, Hematocrit 30.7L, Mean Corpuscular Volume 91.9, Mean Corpuscular Hemoglobin 29.6 , Mean Corpuscular Hemoglobin Concent 32.2, Red Cell Distribution Width 14.3, Platelet Count 161, Neutrophils (%) (Auto) 88.7H, Lymphocytes (%) (Auto) 3.8L, Monocytes (%) (Auto) 4.1, Eosinophils (%) (Auto) 0.8, Basophils (%) (Auto) 0.2, Neutrophils # (Auto) 11.6H, Lymphocytes # (Auto) 0.5L, Monocytes # (Auto) 0.5, Eosinophils # (Auto) 0.1, Basophils # (Auto) 0.0, Calcium Level 8.6L, Triglycerides Level 77, Cholesterol Level 104, HDL Cholesterol 33L, LDL Cholesterol 55.6, Cholesterol/HDL Ratio 3.151, Creatine Kinase MB 1.2, Creatine Kinase MB Relative Index 3.75, Glomerular Filtration Rate > 60.0, Large Unclassified Cells # 0.3, Large Unclassified Cells % 2.5, Non-HDL Cholesterol ( LDL + VLDL) 71, Thyroid Stimulating Hormone (TSH) 1.350, Total Creatine Kinase 32L, Troponin I 0.02 10/31/16 11:53: Bedside Glucose (Misc Panel) 81L CBC/BMP Laboratory Tests 10/31/16 07:04 Red Blood Count 3.34 L, Mean Corpuscular Volume 91.9, Mean Corpuscular Hemoglobin 29.6, Mean Corpuscular Hemoglobin Concent 32.2, Red Cell Distribution Width 14.3, Neutrophils (%) (Auto) 88.7 H, Lymphocytes (%) (Auto) 3.8 L, Monocytes (%) (Auto) 4.1, Eosinophils (%) (Auto) 0.8, Basophils (%) (Auto ) 0.2, Neutrophils # (Auto) 11.6 H, Lymphocytes # (Auto) 0.5 L, Monocytes # ( Auto) 0.5, Eosinophils # (Auto) 0.1, Basophils # (Auto) 0.0 FSBS Laboratory Tests Test 10/30/16 22:42 10/31/16 11:53 Range/Units Bedside Glucose (Misc Panel) 121 81 83-110 MG/DL Microbiology Microbiology 10/30/16 Influenza Virus Type A Antigen - Final, Complete 10/30/16 Influenza Virus Type B Antigen - Final, Complete PAU NAIK MD Oct 31, 2016 13:37
[2016-10-31] MEDS: SLF 3 ML SYR IV SCH ×2 (15:14→22:45)
[2016-10-31] MEDS: AZITHROMYCIN INJ 500 MG, VIAL MATE ADAPTER 1 EACH in D5W 250 ML IV SCH (21:15)
[2016-10-31] MEDS: SIMVASTATIN 40 MG TAB PO SCH (21:16)
[2016-10-31] MEDS: VITAMIN D 1,000 INTERNATIONAL UNITS TABLET PO SCH (21:16)
[2016-11-01] VITALS: BP 129/60
[2016-11-01] MEDS: IPRATROPIUM 0.5MG/ALBUTEROL 2.5MG INH SOL UD 3ML (DUONEB)(J7620) NEB SCH ×4 (01:53→19:13)
[2016-11-01 03:08] LABS: BASO % 0.2 % (0.0-1.0); EOS # 0.1 K/mm3 (0.0-0.50); EOS % 1.2 % (0.0-3.0); LARGE UNSTAINED CELL # 0.3 K/mm3 (0.0-0.4); LYMPH # 0.6 K/mm3 (1.5-4.5); LYMPH % 5.6 % (24.0-44.0); MEAN CORPUSCULAR HEMOGLOBIN 29.2 pg (27.0-33.0); MEAN CORPUSCULAR HGB CONC 31.2 g/dl (32.0-36.5); MEAN CORPUSCULAR VOLUME 93.6 fl (80.0-96.0); MONO # 0.4 K/mm3 (0.0-0.8); MONO % 3.3 % (0.0-5.0); NEUTROPHILS # 9.6 K/mm3 (1.8-7.7); NEUTROPHILS % 86.7 % (36.0-66.0); PLATELET COUNT, AUTOMATED 181 k/mm3 (150-450); RED CELL DISTRIBUTION WIDTH 14.2 % (11.5-14.5); WHITE BLOOD COUNT 11.1 K/mm3 (4.0-10.0)
[2016-11-01 03:24] LABS: ANION GAP 8 MEQ/L (8-16); BLOOD UREA NITROGEN 28 MG/DL (7-18); CALCIUM LEVEL 8.7 MG/DL (8.8-10.2); CARBON DIOXIDE LEVEL 37 MEQ/L (21-32); CHLORIDE LEVEL 93 MEQ/L (98-107); CREATININE FOR GFR 0.96 MG/DL (0.70-1.30); GLOMERULAR FILTRATION RATE > 60.0 (>35); GLUCOSE, FASTING 99 MG/DL (83-110); POTASSIUM SERUM 3.6 MEQ/L (3.5-5.1); SODIUM LEVEL 138 MEQ/L (136-145)
[2016-11-01] MEDS: FUROSEMIDE 40 MG/4 ML VIAL (J1940) IV SCH ×4 (03:37→21:58)
[2016-11-01 04:00] VITALS: BP 117/54
[2016-11-01] MEDS: SLF 3 ML SYR IV SCH ×3 (06:00→22:50)
--- NOTE | 2016-11-01 07:26 | IPNPDOC ---
Assessment/Plan Date Seen The patient was seen on 11/01/16. Problems Problems: (1) Shortness of breath Status: Acute Response to Treatment: Improving Discussed With: Patient Problem Specific Plan: Monitor Clinically Problem Text: Appears secondary to decompensated heart failure. Echo pending. Continue IV lasix. Supplemental O2. Patient at his baseline requirements - 2L via nasal cannula. Ceftriaxone/Azithro for possible superimposed CAP. Add incentive spirometry. (2) CAD (coronary artery disease) Status: Chronic Problem Text: Continue ASA, lisinopril, zebeta. (3) Afib Status: Chronic Problem Specific Plan: Monitor Clinically Problem Text: Rate controlled. Continue Zebeta. Continue Eliquis. (4) Non-compliance Status: Chronic Discussed With: Patient Problem Text: Further complicating factor to his medical care. (5) Morbid obesity Status: Acute Discussed With: Patient Problem Text: Further complicating factor to his medical care. (6) HTN (hypertension) Status: Chronic Problem Specific Plan: Monitor Clinically Problem Text: Lisinopril, Zebeta. (7) Dyslipidemia Status: Chronic Problem Text: Zocor (8) Gout Status: Chronic Discussed With: Patient Plan / VTE VTE Prophylaxis Ordered?: Yes (NOAC) Plan Diet: Continue Current Activity: Continue Current Respiratory: Wean Oxygen Diagnostics: Repeat Labs in AM, TTE Anticipated Discharge: Home, Home With Services Plan Text Continue IV lasix for diuresis. Echo pending. PT/OT eval/treat. PFS possible home care. Patient lives alone but states he always has someone present at home with him. Subjective Review of Systems CC/HPI The patient is a 86-year-old male admitted with a reason for visit of SOB. Events since last encounter Informed by staff patient was pulling at lines through the night. Patient states he has no recollection of these events. Complains of some chronic back pain. Denies any other complaints. Feels his breathing has improved. General: Denies: Chills, Fatigue, Malaise, Night Sweats, Normal Appetite, Other Symptoms, ROS Unobtainable Constitutional: Denies: Chills, Fatigue, Fever, Lethargy, Malaise, Night Sweats , Other, Weakness, Weight Loss Eyes: Denies: Conjunctivae inflammation, Eyelid inflammation, Other, Pain, Redness, Vision change ENT: Denies: Dysphagia, Ear Pain, Epistaxis, Head Aches, Other Symptoms, Post Nasal Drip, Sinus Congestion, Sore Throat Skin: Denies: Breakdown, Bruising, Dry, Itching, Jaundice, Lesions, Nail Changes, Other, Rash Pulmonary: Denies: Cough, Dyspnea, Other Symptoms, Pleuritic Chest Pain Cardiovascular: Denies: Chest Pain, Edema, Lt Headedness, Orthopnea, Other Symptoms, Palpitations, Paroxysmal Noc. Dyspnea Gastrointestinal: Denies: Abdominal Pain, Constipation, Diarrhea, Hematochezia , Melena, Nausea, Other Symptoms, Vomiting Genitourinary: Denies: Dysuria, Frequency, Hematuria, Incontinence, Other Symptoms, Retention Musculoskeletal: Reports: Back Pain, Denies: Arm Pain, Foot Pain, Hand Pain, Joint Pain, Leg Pain, Muscle Pain, Neck Pain, Other Symptoms, Shoulder Pain, Spasms Objective Physical Examination General Exam: Positive: Alert, Cooperative, No Acute Distress Eye Exam: Positive: Conjunctiva & lids normal, PERRLA ENT Exam: Positive: Atraumatic Neck Exam: Positive: Supple Chest Exam: Positive: Clear to auscultation, Diminished Heart Exam: Positive: Irregular Rhythm, Rate Normal Telemetry: Positive: Atrial fibrillation Abdomen Exam: Positive: Normal bowel sounds, Other (obese), Soft, Negative: Tenderness Extremity Exam: Positive: Edema Psych Exam: Positive: Mental status NL, Mood NL, Oriented x 3 Vital Signs/I&O Vital Signs Date Time Temp Pulse Resp B/P Pulse Ox O2 Delivery O2 Flow Rate FiO2 11/01/16 04:00 96.7 69 20 117/54 93 Nasal Cannula 0.5 I&O- Last 24 Hours up to 6 AM 11/01/16 06:00 Intake Total 1315 ml Output Total 1000 ml Balance 315 ml Laboratory Data Labs 24H Laboratory Tests 2 10/31/16 11:53: Bedside Glucose (Misc Panel) 81L 10/31/16 15:06: Creatine Kinase MB 2.1, Creatine Kinase MB Relative Index 3.28, Total Creatine Kinase 64#, Troponin I 0.03# 10/31/16 17:26: Bedside Glucose (Misc Panel) 132H 10/31/16 20:57: Bedside Glucose (Misc Panel) 116H 11/01/16 02:45: Anion Gap 8, White Blood Count 11.1H, Red Blood Count 3.34L, Hemoglobin 9.8L, Hematocrit 31.3L, Mean Corpuscular Volume 93.6, Mean Corpuscular Hemoglobin 29.2 , Mean Corpuscular Hemoglobin Concent 31.2L, Red Cell Distribution Width 14.2, Platelet Count 181, Neutrophils (%) (Auto) 86.7H, Lymphocytes (%) (Auto) 5.6L, Monocytes (%) (Auto) 3.3, Eosinophils (%) (Auto) 1.2, Basophils (%) (Auto) 0.2, Neutrophils # (Auto) 9.6H, Lymphocytes # (Auto) 0.6L, Monocytes # (Auto) 0.4, Eosinophils # (Auto) 0.1, Basophils # (Auto) 0.0, Blood Urea Nitrogen 28H, Creatinine 0.96, Sodium Level 138, Potassium Level 3.6, Chloride Level 93L, Carbon Dioxide Level 37H, Calcium Level 8.7L, Glomerular Filtration Rate > 60.0 , Large Unclassified Cells # 0.3, Large Unclassified Cells % 3.0 CBC/BMP Laboratory Tests 11/01/16 02:45 Calcium Level 8.7 L, Red Blood Count 3.34 L, Mean Corpuscular Volume 93.6, Mean Corpuscular Hemoglobin 29.2, Mean Corpuscular Hemoglobin Concent 31.2 L, Red Cell Distribution Width 14.2, Neutrophils (%) (Auto) 86.7 H, Lymphocytes (%) ( Auto) 5.6 L, Monocytes (%) (Auto) 3.3, Eosinophils (%) (Auto) 1.2, Basophils (% ) (Auto) 0.2, Neutrophils # (Auto) 9.6 H, Lymphocytes # (Auto) 0.6 L, Monocytes # (Auto) 0.4, Eosinophils # (Auto) 0.1, Basophils # (Auto) 0.0 FSBS Laboratory Tests Test 10/31/16 11:53 10/31/16 17:26 10/31/16 20:57 Range/Units Bedside Glucose (Misc Panel) 81 132 116 83-110 MG/DL Microbiology Microbiology 10/31/16 MRSA Screen, Received Pending 10/30/16 Influenza Virus Type A Antigen - Final, Complete 10/30/16 Influenza Virus Type B Antigen - Final, Complete PAU NAIK MD Nov 01, 2016 07:26
[2016-11-01] MEDS: HumaLOG INSULIN (NovoLOG) PER UNIT SC SCH ×4 (07:30→21:00)
[2016-11-01 08:00] VITALS: BP 111/64
[2016-11-01] MEDS: ALLOPURINOL 300 MG TAB PO SCH (08:26)
[2016-11-01] MEDS: ASPIRIN 81 MG ENTERIC TAB PO SCH (08:26)
[2016-11-01] MEDS: LISINOPRIL *2.5 MG* TAB PO SCH (08:26)
[2016-11-01] MEDS: APIXABAN 5 MG TAB (ELIQUIS) PO SCH ×2 (08:26→20:23)
[2016-11-01] MEDS: BISOPROLOL FUMARATE 5 MG TAB PO SCH (08:27)
[2016-11-01] MEDS: SYMBICORT 160/4.5MCG INHALER 6GM INH SCH ×2 (08:57→19:12)
[2016-11-01 12:00] VITALS: BP 110/56
--- NOTE | 2016-11-01 14:20 | ECHO ---
DATE OF STUDY: 10/31/2016 REFERRING PHYSICIAN: Dr. Ginny Leach INDICATION: Dyspnea. HEIGHT: 180 cm. WEIGHT: 150 kilograms. MEASUREMENTS: Ventricular septum: 1.18 cm Posterior wall: 1.8 cm Left ventricle diastole: 4.7 cm Left atrium: 4.4 cm Aortic root: 2.3 cm LVOT: 2.2 cm Inferior vena cava: 2.2 cm DOPPLER MEASUREMENTS: Aortic valve velocity: 207 cm/s LVOT velocity: 66.9 cm/s Trace tricuspid regurgitation. Pulmonary artery systolic pressure: 27 mmHg by pulmonary acceleration time method DESCRIPTION: Rhythm was atrial fibrillation with controlled ventricular response. This was a moderately technically difficult echocardiogram. No pericardial effusion. CONCLUSIONS: 1. Normal left ventricle internal dimensions and wall thickness. Normal left ventricle (LV) motion and wall thickening. Normal LV systolic functioning. Left ventricular ejection fraction (LVEF) 65-70% by visual estimate. Unable to determine LV diastolic function in the setting of atrial fibrillation. 2. Mild left atrial dilatation. 3. 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 No aortic stenosis or aortic regurgitation. 4. Moderate mitral annular calcification. No mitral stenosis or mitral regurgitation. 5. Normal right ventricle size and systolic function. Normal pulmonary artery systolic pressure. 6. Presence of a ventricular pacer lead coursing towards the right ventricle apex position.
[2016-11-01 16:00] VITALS: BP 133/56
[2016-11-01] MEDS: VITAMIN D 1,000 INTERNATIONAL UNITS TABLET PO SCH (20:23)
[2016-11-01] MEDS: SIMVASTATIN 40 MG TAB PO SCH (20:24)
[2016-11-01] MEDS: AZITHROMYCIN INJ 500 MG, VIAL MATE ADAPTER 1 EACH in D5W 250 ML IV SCH (20:24)
[2016-11-01 21:18] VITALS: BP 112/64
[2016-11-01] MEDS: cefTRIAXone SOD 2 GM in D5W MINI-BAG PLUS 50 ML IV SCH (22:50)
[2016-11-02] VITALS (10 sets, daily range): BP systolic 95–136; BP diastolic 55–72
[2016-11-02] MEDS: IPRATROPIUM 0.5MG/ALBUTEROL 2.5MG INH SOL UD 3ML (DUONEB)(J7620) NEB SCH ×4 (01:24→20:00)
[2016-11-02] MEDS: FUROSEMIDE 40 MG/4 ML VIAL (J1940) IV SCH (03:50)
[2016-11-02] MEDS: SLF 3 ML SYR IV SCH ×2 (05:34→14:00)
[2016-11-02 06:06] LABS: BASO % 0.3 % (0.0-1.0); EOS # 0.1 K/mm3 (0.0-0.50); EOS % 1.1 % (0.0-3.0); LARGE UNSTAINED CELL # 0.3 K/mm3 (0.0-0.4); LARGE UNSTAINED CELL % 2.3 % (0.0-4.0); LYMPH # 0.5 K/mm3 (1.5-4.5); LYMPH % 4.4 % (24.0-44.0); MEAN CORPUSCULAR HEMOGLOBIN 29.1 pg (27.0-33.0); MEAN CORPUSCULAR HGB CONC 31.3 g/dl (32.0-36.5); MEAN CORPUSCULAR VOLUME 93.1 fl (80.0-96.0); MONO # 0.5 K/mm3 (0.0-0.8); MONO % 4.2 % (0.0-5.0); NEUTROPHILS # 9.7 K/mm3 (1.8-7.7); NEUTROPHILS % 87.7 % (36.0-66.0); PLATELET COUNT, AUTOMATED 190 k/mm3 (150-450); RED CELL DISTRIBUTION WIDTH 14.3 % (11.5-14.5); WHITE BLOOD COUNT 11.1 K/mm3 (4.0-10.0)
[2016-11-02 06:11] LABS: ANION GAP 5 MEQ/L (8-16); BLOOD UREA NITROGEN 24 MG/DL (7-18); CALCIUM LEVEL 8.8 MG/DL (8.8-10.2); CARBON DIOXIDE LEVEL 37 MEQ/L (21-32); CHLORIDE LEVEL 93 MEQ/L (98-107); CREATININE FOR GFR 0.98 MG/DL (0.70-1.30); GLOMERULAR FILTRATION RATE > 60.0 (>35); GLUCOSE, FASTING 99 MG/DL (83-110); POTASSIUM SERUM 3.9 MEQ/L (3.5-5.1); SODIUM LEVEL 135 MEQ/L (136-145)
[2016-11-02] MEDS: HumaLOG INSULIN (NovoLOG) PER UNIT SC SCH ×4 (07:29→21:00)
[2016-11-02] MEDS: SYMBICORT 160/4.5MCG INHALER 6GM INH SCH ×2 (07:48→20:12)
--- NOTE | 2016-11-02 07:54 | IPNPDOC ---
Assessment/Plan Date Seen The patient was seen on 11/02/16. Problems Problems: (1) Shortness of breath Status: Chronic Response to Treatment: Improving Discussed With: Patient Problem Specific Plan: Monitor Clinically Problem Text: Appears secondary to decompensated heart failure. Echo reveals preserved systolic function. Can resume PO torsemide, supplemental O2 at his baseline requirements - 2L via nasal cannula. Ceftriaxone/Azithro for possible superimposed CAP. Add incentive spirometry. (2) CAD (coronary artery disease) Status: Chronic Problem Text: Continue ASA, lisinopril, zebeta. (3) Afib Status: Chronic Problem Specific Plan: Monitor Clinically Problem Text: Rate controlled. Continue Zebeta. Continue Eliquis. (4) Non-compliance Status: Chronic Discussed With: Patient Problem Text: Further complicating factor to his medical care. (5) Morbid obesity Status: Acute Discussed With: Patient Problem Text: Further complicating factor to his medical care. (6) HTN (hypertension) Status: Chronic Problem Specific Plan: Monitor Clinically Problem Text: Lisinopril, Zebeta. (7) Dyslipidemia Status: Chronic Problem Text: Zocor (8) Gout Status: Chronic Discussed With: Patient (9) DM2 (diabetes mellitus, type 2) Status: Chronic Problem Specific Plan: Repeat Labs Problem Text: continue with FS and ISS Plan / VTE VTE Prophylaxis Ordered?: Yes (NOAC) Plan Diet: Continue Current Activity: Continue Current Respiratory: Wean Oxygen Diagnostics: Repeat Labs in AM, TTE Anticipated Discharge: Home, Home With Services Subjective Review of Systems CC/HPI The patient is a 86-year-old male admitted with a reason for visit of SOB. Events since last encounter Restless again last night requiring sitter. General: Denies: Chills, Fatigue, Malaise, Night Sweats, Normal Appetite, Other Symptoms, ROS Unobtainable Constitutional: Denies: Chills, Fatigue, Fever, Lethargy, Malaise, Night Sweats , Other, Weakness, Weight Loss Eyes: Denies: Conjunctivae inflammation, Eyelid inflammation, Other, Pain, Redness, Vision change ENT: Denies: Dysphagia, Ear Pain, Epistaxis, Head Aches, Other Symptoms, Post Nasal Drip, Sinus Congestion, Sore Throat Skin: Denies: Breakdown, Bruising, Dry, Itching, Jaundice, Lesions, Nail Changes, Other, Rash Pulmonary: Denies: Cough, Dyspnea, Other Symptoms, Pleuritic Chest Pain Cardiovascular: Denies: Chest Pain, Edema, Lt Headedness, Orthopnea, Other Symptoms, Palpitations, Paroxysmal Noc. Dyspnea Gastrointestinal: Denies: Abdominal Pain, Constipation, Diarrhea, Hematochezia , Melena, Nausea, Other Symptoms, Vomiting Objective Physical Examination General Exam: Positive: Alert, Cooperative, No Acute Distress Eye Exam: Positive: Conjunctiva & lids normal, PERRLA ENT Exam: Positive: Atraumatic Neck Exam: Positive: Supple Chest Exam: Positive: Clear to auscultation, Diminished Heart Exam: Positive: Irregular Rhythm, Rate Normal Telemetry: Positive: Bradycardia, Other Telemetry: (paced) Abdomen Exam: Positive: Normal bowel sounds, Other (obese), Soft, Negative: Tenderness Extremity Exam: Positive: Edema Psych Exam: Positive: Mental status NL, Mood NL, Oriented x 3 Vital Signs/I&O Vital Signs Date Time Temp Pulse Resp B/P Pulse Ox O2 Delivery O2 Flow Rate FiO2 11/02/16 05:57 96.8 73 20 133/62 96 Nasal Cannula 2.0 I&O- Last 24 Hours up to 6 AM 11/02/16 06:00 Intake Total 1560 ml Output Total 1300 ml Balance 260 ml Laboratory Data Labs 24H Laboratory Tests 2 11/01/16 12:28: Bedside Glucose (Misc Panel) 153H 11/01/16 16:55: Bedside Glucose (Misc Panel) 93 11/01/16 21:00: Bedside Glucose (Misc Panel) 113H 11/02/16 01:00: Magnesium Level 2.2 11/02/16 03:06: Bedside Glucose (Misc Panel) 102 11/02/16 05:45: Anion Gap 5L, White Blood Count 11.1H, Red Blood Count 3.41L, Hemoglobin 9.9L, Hematocrit 31.7L, Mean Corpuscular Volume 93.1, Mean Corpuscular Hemoglobin 29.1 , Mean Corpuscular Hemoglobin Concent 31.3L, Red Cell Distribution Width 14.3, Platelet Count 190, Neutrophils (%) (Auto) 87.7H, Lymphocytes (%) (Auto) 4.4L, Monocytes (%) (Auto) 4.2, Eosinophils (%) (Auto) 1.1, Basophils (%) (Auto) 0.3, Neutrophils # (Auto) 9.7H, Lymphocytes # (Auto) 0.5L, Monocytes # (Auto) 0.5, Eosinophils # (Auto) 0.1, Basophils # (Auto) 0.0, Blood Urea Nitrogen 24H, Creatinine 0.98, Sodium Level 135L, Potassium Level 3.9, Chloride Level 93L, Carbon Dioxide Level 37H, Calcium Level 8.8, Glomerular Filtration Rate > 60.0, Large Unclassified Cells # 0.3, Large Unclassified Cells % 2.3 CBC/BMP Laboratory Tests 11/02/16 05:45 Calcium Level 8.8, Red Blood Count 3.41 L, Mean Corpuscular Volume 93.1, Mean Corpuscular Hemoglobin 29.1, Mean Corpuscular Hemoglobin Concent 31.3 L, Red Cell Distribution Width 14.3, Neutrophils (%) (Auto) 87.7 H, Lymphocytes (%) ( Auto) 4.4 L, Monocytes (%) (Auto) 4.2, Eosinophils (%) (Auto) 1.1, Basophils (% ) (Auto) 0.3, Neutrophils # (Auto) 9.7 H, Lymphocytes # (Auto) 0.5 L, Monocytes # (Auto) 0.5, Eosinophils # (Auto) 0.1, Basophils # (Auto) 0.0 FSBS Laboratory Tests Test 11/01/16 12:28 11/01/16 16:55 11/01/16 21:00 11/02/16 03:06 Range/Units Bedside Glucose (Misc Panel) 153 93 113 102 83-110 MG/DL Microbiology Microbiology 10/31/16 MRSA Screen - Final, Complete 10/30/16 Influenza Virus Type A Antigen - Final, Complete 10/30/16 Influenza Virus Type B Antigen - Final, Complete PAU NAIK MD Nov 02, 2016 07:54 PAU NAIK MD Nov 02, 2016 07:54
[2016-11-02] MEDS: ALLOPURINOL 300 MG TAB PO SCH (09:10)
[2016-11-02] MEDS: LISINOPRIL *2.5 MG* TAB PO SCH (09:11)
[2016-11-02] MEDS: TORSEMIDE 20 MG TAB PO SCH ×2 (09:11→22:13)
[2016-11-02] MEDS: ASPIRIN 81 MG ENTERIC TAB PO SCH (09:11)
[2016-11-02] MEDS: APIXABAN 5 MG TAB (ELIQUIS) PO SCH ×2 (09:11→22:14)
[2016-11-02] MEDS: BISOPROLOL FUMARATE 5 MG TAB PO SCH (09:11)
--- NOTE | 2016-11-02 14:09 | EDDOCDS ---
Nurse's Notes [facility] Name: Mitch Milligan Age: 86 yrs Sex: Male : 1930 Arrival Date: 10/30/2016 Time: 11:42 Bed Admit Hold Private MD: David Henderson N Diagnosis: Shortness of breath-Hypoxia Presentation: 10/30 11:45 Presenting complaint: EMS states: weakness with SOB for the last couple of days. dy FSBS-99 mg/dl. Suicide/Homicide risk assessment- the patient denies having any suicidal and/or homicidal ideations and does not present with any other emotional, behavioral or mental health complaints. 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 Transition of care: patient was not received from another setting of care. 11:45 Acuity: JESSICA Level 3 dy 11:45 Method Of Arrival: Ambulance dy 20:12 Adult Sepsis Screening: The patient does not have new or worsening altered mentation. af2 Patient's respiratory rate is less than 22. Systolic blood pressure is greater than 100. Patient has a qSOFA score of 0- Negative Sepsis Screen. Triage Assessment: 12:11 General: Appears in no apparent distress, Behavior is cooperative. dy Historical: - Allergies: No known drug Allergies; - Home Meds: 1. allopurinol 300 mg Oral tab 1 tab once daily 2. aspirin 81 mg Oral chew 1 tab once daily 3. bisoprolol fumarate 2.5 mg oral twice a day 4. Eliquis 5 mg oral tab 2 times per day 5. glimepiride 1 mg Oral tab 1 tab once daily 6. lisinopril 2.5 mg Oral tab once daily 7. simvastatin 80 mg Oral tab daily 8. Symbicort 160-4.5mcg act. 2 puffs BID 9. torsemide 20 mg oral tab 1 tab twice a day - PMHx: CAD; Hypercholesterolemia; Hypertension; - PSHx: Pacemaker insertion 2004; - Social history: Smoking status: No barriers to communication noted, The patient speaks fluent Romansh, Speaks appropriately for age. - Family history: Not pertinent. - : The pt / caregiver states he / she is on anticoagulants: Eliquis Unable to Verify Home Med List with the patient / caregiver. - Exposure Risk Screening:: None identified. Screenin:11 Screening information is obtained from the patient. Fall risk: At risk due to age, The af2 following interventions are performed due to a positive Fall Risk Screen: Fall Risk is added to Special Handling on the patient Summary Screen. A Fall Risk Bracelet was applied to the patient. Side Rails are placed in the up position. A Call Martinez is given with instruction to call for help when getting out of bed. Assistance ADL's: requires no assistance with activities of daily living. Abuse/DV Screen: The patient / caregiver reports he/she is: not in a situation that causes fear, pain or injury. Nutritional screening: No deficits noted. Advance Directives: Further advance directive information is declined. home support is adequate. Assessment: 12:08 General: Appears in no apparent distress, Behavior is appropriate for age, cooperative. dy Pain: Denies pain. Neurological: Level of Consciousness is awake, alert, obeys commands, Oriented to person, place, time. Respiratory: Airway is patent Respiratory effort is even, unlabored, Breath sounds are clear bilaterally. 13:03 General: Appears in no apparent distress, Behavior is appropriate for age, cooperative. dy Pain: Denies pain. Neurological: Level of Consciousness is awake, alert, obeys commands, Oriented to person, place, time, Reports weakness. Cardiovascular: Heart tones S1 S2. Cardiovascular: Edema is 2+ to left midcalf, left ankle, right midcalf and right ankle. Respiratory: Breath sounds are diminished bilaterally. Derm: Skin is thin, Skin is dry, Skin is pale. Derm: Skin is red, ashok with scabbed areas to bilateral lower extremities. 14:00 General: Appears in no apparent distress, Behavior is anxious, restless. dy 14:00 Pain: Denies pain. Respiratory: Airway is patent Respiratory effort is even, labored, dy Breath sounds are diminished bilaterally. 14:44 General: Appears in no apparent distress, Behavior is appropriate for age, cooperative. dy Pain: Denies pain. Neurological: Level of Consciousness is awake, alert, obeys commands, Oriented to person, place, time. Respiratory: Airway is patent Respiratory effort is even, unlabored. 15:08 General: Appears distressed, Behavior is agitated, anxious, pt calmed, repositioned on mk4 side sao2 probe replaced , pt resting more comf now, less anxious. 16:00 General: Appears in no apparent distress, attempted to ambulate pt with oxygen and sao2 mk4 meter on pt desaturated to 81 % on standing, pt placed back on stretcher and sitting comf drinking florecita marj, rept to Dr luna. 17:35 General: Appears in no apparent distress, comfortable, repositioned on side states mk4 comfortable . Respiratory: Airway is patent Respiratory effort is even, Respiratory pattern is regular, tachypnea the patient has moderate shortness of breath. 18:45 General: Appears in no apparent distress, comfortable, sat up on edge of bed for mk4 dinner, quite SOB on exertion returned to supine after dinner. 19:41 General: Appears in no apparent distress, Dr Mckeon in examining pt. mk4 19:53 General: Appears in no apparent distress, comfortable, laying on side watching tv mk4 denies needs. 20:09 General: Appears in no apparent distress, comfortable, Behavior is appropriate for age, af2 cooperative, assumed care of pt at this time, pt is without complaints at this time. nasal cannula reapplied.. Neurological: Level of Consciousness is awake, alert. Respiratory: Airway is patent Respiratory effort is even, unlabored. Derm: Skin is pale. 20:33 General: Appears in no apparent distress, Behavior is cooperative, pt pulled out his af2 piv, new piv placed by this editorial writer to right wrist. telemetry reapplied.. Neurological: Level of Consciousness is awake, alert, obeys commands, Oriented to person, place, time. Cardiovascular: Rhythm is sinus rhythm No ectopy. Respiratory: Airway is patent Respiratory effort is even, unlabored, Breath sounds with rhonchi bilaterally. Breath sounds are diminished in left lower lobe, right lower lobe, left posterior lower lobe and right posterior lower lobe. Derm: Skin is pale. 21:47 General: report given to ed hold nurse. for further charting refer to [facility].. af2 Vital Signs: 12:04 BP 137 / 78; Pulse 80; Resp 18; Pulse Ox 93% on R/A; Weight 149.69 kg (R); Height 5 ft. jrd 11 in. (180.34 cm); 12:15 Temp 98.1; Pain 0/10; jrd 12:34 BP 144 / 67 (auto/); mk4 12:34 Pulse 76 MON; Pulse Ox 93% ; mk4 12:48 Pulse 70 MON; Pulse Ox 93% ; mk4 12:49 BP 173 / 91 (auto/); mk4 13:04 BP 168 / 81 (auto/); mk4 13:04 Pulse 78 MON; Pulse Ox 99% ; mk4 13:18 Pulse 86 MON; Pulse Ox 96% ; mk4 13:19 BP 172 / 84 (auto/); mk4 13:33 Pulse 74 MON; Pulse Ox 99% ; mk4 13:34 BP 172 / 95 (auto/); mk4 13:48 Pulse 76 MON; Pulse Ox 99% ; mk4 13:49 BP 193 / 84 (auto/); mk4 14:04 BP 188 / 91 (auto/); mk4 14:04 Pulse 76 MON; Pulse Ox 99% ; mk4 14:32 Pulse 82 MON; Pulse Ox 80% ; mk4 14:33 BP 233 / 118 (auto/); mk4 14:34 BP 215 / 95 (auto/); mk4 14:35 Pulse 80 MON; Pulse Ox 96% ; mk4 14:52 BP 143 / 63 (auto/); mk4 14:53 Pulse 66 MON; Pulse Ox 90% ; mk4 15:19 BP 192 / 79 (auto/); mk4 15:19 Pulse 102 MON; Pulse Ox 99% ; mk4 15:34 BP 182 / 74 (auto/); mk4 15:34 Pulse 80 MON; Pulse Ox 100% ; mk4 19:07 BP 126 / 83 (auto/); mk4 19:07 Pulse 80 MON; Pulse Ox 92% ; mk4 12:04 Body Mass Index 46.03 (149.69 kg, 180.34 cm) jrd ED Course: 11:43 Patient visited by Osman Barahona PCA. jrd 11:43 Patient moved to Waiting jrd 11:43 Patient moved to I8 / 16 jrd 11:44 David Henderson is Private Physician. jrd 11:48 Triage Initiated dy 12:05 Patient visited by Osman Barahona PCA. jrd 12:07 CBC with Diff Sent. dy 12:07 Cardiac Injury Profile Sent. dy 12:07 Liver Profile Sent. dy 12:07 MED Profile Sent. dy 12:07 Thyroid Stimulating Hormone Sent. dy 12:07 Troponin Sent. dy 12:08 The patient / caregiver is instructed regarding the plan of care and ED course. Patient dy has correct armband on for positive identification. Placed in gown. Bed in low position. Call light in reach. Side rails up X2. mounted police on. Pulse ox on. NIBP on. 12:08 Inserted saline lock: 20 gauge in right antecubital area and blood collected. The dy patient tolerated the procedure well. Labs drawn. (by ED staff). Sent per order to lab. 12:09 Patient visited by Shayan Hughes RN. dy 12:15 Patient visited by Osman Barahona PCA. jrd 12:34 No procedures done that require assistance. mk4 12:43 Rajiv Luna MD is Attending Physician. br1 12:54 Patient visited by Arvin Lopez PCA. jlf 12:55 Patient visited by Rajiv Luna MD. br1 13:05 Patient visited by Shayan Hughes RN. dy 13:15 BNP Sent. dy 13:40 Patient visited by Arvin Lopez PCA. jlf 13:44 -Arterial Blood Gas Sent. js11 14:00 Patient visited by Rajiv Luna MD. br1 14:14 Chest, 2 View (pa\E\lat) Returned. EDMS 14:32 Patient visited by Arvin Lopez PCA. jlf 15:07 Patient visited by Nicole Segura RN. mk4 15:13 CT Chest Angio R/O PE Returned. EDMS 15:56 Patient visited by Rajiv Luna MD. br1 16:32 Patient visited by Nicole Segura RN. mk4 16:53 Patient visited by Arvin Lopez PCA. jlf 17:00 [facility] Payment Agreement was scanned into [employer] and attached to record. jpb 17:27 Patient visited by Nicole Segura RN. mk4 17:56 Ginny Leach is Hospitalizing Provider. br1 20:09 Cleo Pinto RN is Primary Nurse. af2 20:11 Patient visited by Cleo Pinto RN. af2 20:12 Patient visited by Cleo Pinto RN. af2 20:25 EKG-ADULT Returned. EDMS 20:36 Patient visited by Cleo Pinto RN. af2 20:42 Patient moved to Admit Hold sls1 21:47 Patient visited by Cleo Pinto RN. af2 21:56 Patient moved to 20 sls1 21:56 Patient moved to Admit Hold [facility] 10/31 02:46 Primary Nurse role handed off by Cleo Pinto RN sls1 15:27 T-Sheet-- Draft Copy was scanned into [employer] and attached to record. gb 15:27 Radiology Report was scanned into [employer] and attached to record. gb 15:27 Other: MOLST was scanned into [employer] and attached to record. gb Administered Medications: 10/30 13:44 Drug: Albuterol-Ipratropium 3 ml [ipratropium-albuterol 0.5 mg-3 mg(2.5 mg base)/3 mL js11 nebulization soln (3 mL)] Route: Inhalation; RT: 13:44 ABG's drawn from left radial artery allens test done and positive pressure held for 5 js11 minutes no bleeding noted specimen sent pt. tolerated well. Initial Med Neb Given as ordered Patient was instructed and evaluated on procedure Patient tolerated procedure well without adverse effect. Respiratory: Breath sounds are diminished bilaterally. Order Results: Lab Order: CBC with Diff; SPEC'M 10/30/16 12:05 Test: WHITE BLOOD COUNT; Value: 16.7; Range: 4.0-10.0; Abnormal: Above high normal; Units: K/mm3; Status: F Test: RED BLOOD COUNT; Value: 3.73; Range: 4.30-6.10; Abnormal: Below low normal; Units: M/mm3; Status: F Test: HEMOGLOBIN; Value: 11.0; Range: 14.0-18.0; Abnormal: Below low normal; Units: g/dl; Status: F Test: HEMATOCRIT; Value: 34.2; Range: 42.0-52.0; Abnormal: Below low normal; Units: %; Status: F Test: MEAN CORPUSCULAR VOLUME; Value: 91.8; Range: 80.0-96.0; Units: fl; Status: F Test: MEAN CORPUSCULAR HEMOGLOBIN; Value: 29.4; Range: 27.0-33.0; Units: pg; Status: F Test: MEAN CORPUSCULAR HGB CONC; Value: 32.0; Range: 32.0-36.5; Units: g/dl; Status: F Test: RED CELL DISTRIBUTION WIDTH; Value: 15.2; Range: 11.5-14.5; Abnormal: Above high normal; Units: %; Status: F Test: PLATELET COUNT, AUTOMATED; Value: 179; Range: 150-450; Units: k/mm3; Status: F Test: NEUTROPHILS %; Value: 92.8; Range: 36.0-66.0; Abnormal: Above high normal; Units: %; Status: F Test: LYMPH %; Value: 2.4; Range: 24.0-44.0; Abnormal: Below low normal; Units: %; Status: F Test: MONO %; Value: 2.3; Range: 0.0-5.0; Units: %; Status: F Test: EOS %; Value: 0.7; Range: 0.0-3.0; Units: %; Status: F Test: BASO %; Value: 0.8; Range: 0.0-1.0; Units: %; Status: F Test: LARGE UNSTAINED CELL %; Value: 1.0; Range: 0.0-4.0; Units: %; Status: F Test: NEUTROPHILS #; Value: 15.5; Range: 1.8-7.7; Abnormal: Above high normal; Units: K/mm3; Status: F Test: LYMPH #; Value: 0.6; Range: 1.5-4.5; Abnormal: Below low normal; Units: K/mm3; Status: F Test: MONO #; Value: 0.4; Range: 0.0-0.8; Units: K/mm3; Status: F Test: EOS #; Value: 0.1; Range: 0.0-0.50; Units: K/mm3; Status: F Test: BASO #; Value: 0.1; Range: 0.0-0.2; Units: K/mm3; Status: F Test: LARGE UNSTAINED CELL #; Value: 0.2; Range: 0.0-0.4; Units: K/mm3; Status: F Lab Order: Cardiac Injury Profile; SPEC'M 10/30/16 12:05 Test: CPK CREATINE PHOSPHOKINASE; Value: 40; Range: 39-308; Units: U/L; Status: F Test: CK-MB VALUE MASS; Value: 1.5; Range: 0.0-3.6; Units: NG/ML; Status: F Test: MB/CK RELATIVE INDEX; Value: 3.75; Range: < OR =4; Status: F Test Note: ; DIAGNOSIS CRITERIA MMB ng/ml Relative Index (RI) NON-AMI < or = 5 N/A SHE[place]BY [place]ONE > 5 < or = 4 AMI > 5 > 4 Lab Order: Liver Profile; SPEC'M 10/30/16 12:05 Test: AST/SGOT; Value: 23; Range: 15-37; Units: U/L; Status: F Test: ALT/SGPT; Value: 14; Range: 12-78; Units: U/L; Status: F Test: ALKALINE PHOSPHATASE; Value: 89; Range: 45-117; Units: U/L; Status: F Test: BILIRUBIN,TOTAL; Value: 0.5; Range: 0.2-1.0; Units: MG/DL; Status: F Test: BILIRUBIN,DIRECT; Value: 0.2; Range: 0.0-0.2; Units: MG/DL; Status: F Test: TOTAL PROTEIN; Value: 7.1; Range: 6.4-8.2; Units: GM/DL; Status: F Test: ALBUMIN; Value: 2.0; Range: 3.2-5.2; Abnormal: Below low normal; Units: GM/DL; Status: F Test: ALBUMIN/GLOBULIN RATIO; Value: 0.39; Range: 1.00-1.93; Abnormal: Below low normal; Status: F Lab Order: MED Profile; SPEC'M 10/30/16 12:05 Test: GLUCOSE, FASTING; Value: 94; Range: 83-110; Units: MG/DL; Status: F Test: BLOOD UREA NITROGEN; Value: 21; Range: 7-18; Abnormal: Above high normal; Units: MG/DL; Status: F Test: CREATININE FOR GFR; Value: 0.90; Range: 0.70-1.30; Units: MG/DL; Status: F Test: GLOMERULAR FILTRATION RATE; Value: > 60.0; Range: >35; Status: F Test: SODIUM LEVEL; Value: 137; Range: 136-145; Units: MEQ/L; Status: F Test: POTASSIUM SERUM; Value: 4.3; Range: 3.5-5.1; Units: MEQ/L; Status: F Test: CHLORIDE LEVEL; Value: 94; Range: 98-107; Abnormal: Below low normal; Units: MEQ/L; Status: F Test: CARBON DIOXIDE LEVEL; Value: 37; Range: 21-32; Abnormal: Above high normal; Units: MEQ/L; Status: F Test: ANION GAP; Value: 6; Range: 8-16; Abnormal: Below low normal; Units: MEQ/L; Status: F Test: CALCIUM LEVEL; Value: 9.5; Range: 8.8-10.2; Units: MG/DL; Status: F Test Note: ; Units are mL/min/1.73 m2 Chronic Kidney Disease Staging per NKF: Stage I & II GFR >=60 Normal to Mildly Decreased Stage III GFR 30-59 Moderately Decreased Stage IV GFR 15-29 Severely Decreased Stage V GFR <15 Very Little GFR Left ESRD GFR <15 on IT APPLICATION SUPPORT ANALYST Lab Order: Thyroid Stimulating Hormone; SPEC' 10/30/16 12:05 Test: THYROID STIMULATING HORMONE; Value: 1.990; Range: 0.358-3.740; Units: uIU/ML; Status: F Lab Order: Troponin; SPEC' 10/30/16 12:05 Test: TROPONIN I; Value: 0.02; Range: < 0.10; Units: NG/ML; Status: F Test Note: ; Troponin I Reference Interval for [facility] [employer] LOCI: 99th Percentile= 0.00-0.045 ng/ml Risk Stratification: <= 0.10 ng/ml Decreased Risk for Adverse Clinical Events. 0.10-1.50 ng/ml Increased Risk for Adverse Clinical Events. Evaluation of additional criterion and/or repeat testing in 2-6 hours is suggested to rule out myocardial damage. >= 1.50 ng/ml Indicative of Myocardial Injury. Lab Order: BNP; SPEC'10/30/16 12:05 Test: BRAIN NATRIURETIC PEPTIDE; Value: 382; Range: <100; Abnormal: Above high normal; Units: PG/ML; Status: F Lab Order: -Arterial Blood Gas; SPEC' 10/30/16 13:35 Test: ABG pH (ARTERIAL); Value: 7.466; Range: 7.350-7.450; Abnormal: Above high normal; Units: UNITS; Status: F Test: ABG PARTIAL PRESSURE CO2; Value: 51.1; Range: 35.0-45.0; Abnormal: Above high normal; Units: mmHg; Status: F Test: ABG PARTIAL PRESSURE O2; Value: 111.7; Range: 75.0-100.0; Abnormal: Above high normal; Units: mmHg; Status: F Test: ABG TOTAL CO2; Value: 37.6; Range: 23.0-31.0; Abnormal: Above high normal; Units: MEQ/L; Status: F Test: ABG HCO3; Value: 36.0; Range: 22.0-26.0; Abnormal: Above high normal; Units: MEQ/L; Status: F Test: ABG BASE EXCESS; Value: 10.7; Range: -2.0-2.0; Abnormal: Above high normal; Status: F Test: ABG STANDARD HCO3; Value: 34.5; Range: 22.0-26.0; Abnormal: Above high normal; Units: MEQ/L; Status: F Test: ABG O2 SATURATION; Value: 98.4; Range: 95.0-99.0; Units: %; Status: F Test: ABG DEVICE; Value: NASAL MARIBEL; Status: F Lab Order: -Influenza A&B Rapid Antigen - Nose; SPEC'M 10/30/16 13:09 Test: INFLUENZA A RAPID SCR by ICA; Value: INFLUENZA A RESULTS NEGATIVE; Status: F Test: INFLUENZA A RAPID SCR by ICA; Value: Comments:; Status: F Test: INFLUENZA B RAPID SCR by ICA; Value: INFLUENZA B RESULTS NEGATIVE; Status: F Test Note: ; The Influenza test is a direct rapid immunoassay for the qualitative detection of Influenza viral antigen. Cell culture (Viral Culture) testing should be considered to confirm NEGATIVE results and to assist in detecting other viruses that can provide similar clinical symptoms. Please contact the lab within 24 hours ([phone]) if confirmatory testing is desired. Lab Order: CARDIAC MARKER PANEL; SPEC'M 10/30/16 22:33 Test: CPK CREATINE PHOSPHOKINASE; Value: 49; Range: 39-308; Units: U/L; Status: F Test: CK-MB VALUE MASS; Value: 1.6; Range: 0.0-3.6; Units: NG/ML; Status: F Test: MB/CK RELATIVE INDEX; Value: 3.26; Range: < OR =4; Status: F Test: TROPONIN I; Value: < 0.02; Range: < 0.10; Units: NG/ML; Status: F Test Note: ; DIAGNOSIS CRITERIA MMB ng/ml Relative Index (RI) NON-AMI < or = 5 N/A [place]BY [place]ONE > 5 < or = 4 AMI > 5 > 4 Lab Order: BASIC METABOLIC PROFILE; SPEC'M 10/31/16 07:04 Test: GLUCOSE, FASTING; Value: 106; Range: 83-110; Units: MG/DL; Status: F Test: BLOOD UREA NITROGEN; Value: 22; Range: 7-18; Abnormal: Above high normal; Units: MG/DL; Status: F Test: CREATININE FOR GFR; Value: 0.96; Range: 0.70-1.30; Units: MG/DL; Status: F Test: GLOMERULAR FILTRATION RATE; Value: > 60.0; Range: >35; Status: F Test: SODIUM LEVEL; Value: 137; Range: 136-145; Units: MEQ/L; Status: F Test: POTASSIUM SERUM; Value: 3.6; Range: 3.5-5.1; Units: MEQ/L; Status: F Test: CHLORIDE LEVEL; Value: 94; Range: 98-107; Abnormal: Below low normal; Units: MEQ/L; Status: F Test: CARBON DIOXIDE LEVEL; Value: 34; Range: 21-32; Abnormal: Above high normal; Units: MEQ/L; Status: F Test: ANION GAP; Value: 9; Range: 8-16; Units: MEQ/L; Status: F Test: CALCIUM LEVEL; Value: 8.6; Range: 8.8-10.2; Abnormal: Below low normal; Units: MG/DL; Status: F Test Note: ; Units are mL/min/1.73 m2 Chronic Kidney Disease Staging per NKF: Stage I & II GFR >=60 Normal to Mildly Decreased Stage III GFR 30-59 Moderately Decreased Stage IV GFR 15-29 Severely Decreased Stage V GFR <15 Very Little GFR Left ESRD GFR <15 on IT APPLICATION SUPPORT ANALYST Lab Order: CBC WITH DIFFERENTIAL; SPEC'M 10/31/16 07:04 Test: WHITE BLOOD COUNT; Value: 13.1; Range: 4.0-10.0; Abnormal: Above high normal; Units: K/mm3; Status: F Test: RED BLOOD COUNT; Value: 3.34; Range: 4.30-6.10; Abnormal: Below low normal; Units: M/mm3; Status: F Test: HEMOGLOBIN; Value: 9.9; Range: 14.0-18.0; Abnormal: Below low normal; Units: g/dl; Status: F Test: HEMATOCRIT; Value: 30.7; Range: 42.0-52.0; Abnormal: Below low normal; Units: %; Status: F Test: MEAN CORPUSCULAR VOLUME; Value: 91.9; Range: 80.0-96.0; Units: fl; Status: F Test: MEAN CORPUSCULAR HEMOGLOBIN; Value: 29.6; Range: 27.0-33.0; Units: pg; Status: F Test: MEAN CORPUSCULAR HGB CONC; Value: 32.2; Range: 32.0-36.5; Units: g/dl; Status: F Test: RED CELL DISTRIBUTION WIDTH; Value: 14.3; Range: 11.5-14.5; Units: %; Status: F Test: PLATELET COUNT, AUTOMATED; Value: 161; Range: 150-450; Units: k/mm3; Status: F Test: NEUTROPHILS %; Value: 88.7; Range: 36.0-66.0; Abnormal: Above high normal; Units: %; Status: F Test: LYMPH %; Value: 3.8; Range: 24.0-44.0; Abnormal: Below low normal; Units: %; Status: F Test: MONO %; Value: 4.1; Range: 0.0-5.0; Units: %; Status: F Test: EOS %; Value: 0.8; Range: 0.0-3.0; Units: %; Status: F Test: BASO %; Value: 0.2; Range: 0.0-1.0; Units: %; Status: F Test: LARGE UNSTAINED CELL %; Value: 2.5; Range: 0.0-4.0; Units: %; Status: F Test: NEUTROPHILS #; Value: 11.6; Range: 1.8-7.7; Abnormal: Above high normal; Units: K/mm3; Status: F Test: LYMPH #; Value: 0.5; Range: 1.5-4.5; Abnormal: Below low normal; Units: K/mm3; Status: F Test: MONO #; Value: 0.5; Range: 0.0-0.8; Units: K/mm3; Status: F Test: EOS #; Value: 0.1; Range: 0.0-0.50; Units: K/mm3; Status: F Test: BASO #; Value: 0.0; Range: 0.0-0.2; Units: K/mm3; Status: F Test: LARGE UNSTAINED CELL #; Value: 0.3; Range: 0.0-0.4; Units: K/mm3; Status: F Lab Order: HEMOGLOBIN A1C; [facility] 10/30/16 22:33 Test: HEMOGLOBIN A1c; Value: 5.8; Range: 4.5-6.2; Units: %; Status: F Test: ESTIMATED AVERAGE GLUCOSE; Value: 120; Range: 60-110; Abnormal: Above high normal; Units: MG/DL; Status: F Lab Order: Fingerstick Blood Sugar; [facility] 10/30/16 22:42 Test: BEDSIDE GLUCOSE; Value: 121; Range: 83-110; Abnormal: Above high normal; Units: MG/DL; Status: F Lab Order: PT & APTT; [facility] 10/30/16 22:55 Test: PROTHROMBIN TIME; Value: 17.1; Range: 12.3-14.5; Abnormal: Above high normal; Units: SECONDS; Status: F Test: INR; Value: 1.38; Status: F Test: PARTIAL THROMBOPLASTIN TIME; Value: 37.3; Range: 26.6-37.1; Abnormal: Above high normal; Units: SECONDS; Status: F Test Note: ; THERAPUTIC HUMAN INR VALUES INDICATIONS NORMAL RANGES PROPHYLAXIS/TREATMENT OF: VENOUS THROMBOSIS 2.0-3.0 PULMONARY EMBOLISM 2.0-3.0 PREVENTION OF SYSTEMIC EMBOLISM FROM: TISSUE HEART VALVES 2.0-3.0 ACUTE MYOCARDIAL INFARCTION 2.0-3.0 VALVULAR HEART DISEASE 2.0-3.0 ATRIAL FIBRILLATION 2.0-3.0 MECHANICAL VALVES(HIGH RISK) 2.5-3.5 RECURRENT MYOCARDIAL INFARCTION 2.5-3.5 Lab Order: CARDIAC MARKER PANEL; 10/31/16 07:04 Test: CPK CREATINE PHOSPHOKINASE; Value: 32; Range: 39-308; Abnormal: Below low normal; Units: U/L; Status: F Test: CK-MB VALUE MASS; Value: 1.2; Range: 0.0-3.6; Units: NG/ML; Status: F Test: MB/CK RELATIVE INDEX; Value: 3.75; Range: < OR =4; Status: F Test: TROPONIN I; Value: 0.02; Range: < 0.10; Units: NG/ML; Status: F Test Note: ; DIAGNOSIS CRITERIA MMB ng/ml Relative Index (RI) NON-AMI < or = 5 N/A [place] > 5 < or = 4 AMI > 5 > 4 Lab Order: CARDIAC RISK PROFILE; 10/31/16 07:04 Test: TRIGLYCERIDES LEVEL; Value: 77; Range: <150; Units: MG/DL; Status: F Test: CHOLESTEROL LEVEL; Value: 104; Range: <200; Units: MG/DL; Status: F Test: HDL CHOLESTEROL; Value: 33; Range: >40; Abnormal: Below low normal; Units: MG/DL; Status: F Test: LDL CHOLESTEROL; Value: 55.6; Range: <100; Units: MG/DL; Status: F Test: NON-HDL-C; Value: 71; Units: MG/DL; Status: F Test: CHOLESTEROL RISK RATIO; Value: 3.151; Range: <5; Status: F Lab Order: THYROID STIMULATING HORMONE; 10/31/16 07:04 Test: THYROID STIMULATING HORMONE; Value: 1.350; Range: 0.358-3.740; Units: uIU/ML; Status: F Lab Order: Fingerstick Blood Sugar; 10/31/16 11:53 Test: BEDSIDE GLUCOSE; Value: 81; Range: 83-110; Abnormal: Below low normal; Units: MG/DL; Status: F Radiology Order: EKG-ADULT Test: EKG-ADULT REASON FOR EXAMINATION: [place]; Stationary ECG Study; [facility] - ED; ; Test Date: 2016-10-30; Pat Name: MITCH MILLIGAN Department:; Room: -; 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:; : 1930 Requested By: Gretel Dawson; Order Number: [id number] Reading MD: Gretel Dawson; Measurements; Intervals [place]; Rate: 72 P:; VA: 0 QRS: 12; QRSD: 93 T: 43; QT: 368; QTc: 403; Interpretive Statements; ATRIAL FIBRILLATION; LOW QRS VOLTAGE IN EXTREMITY LEADS; ABNORMAL RHYTHM ECG; PRWP; NSTTW ABNORMALITY; Electronically Signed On 10-30-2016 20:01:14 EST by Gretel Dawson; Radiology Order: Chest, 2 View (pa\E\lat) Test: Chest, 2 View (pa\E\lat) REASON FOR EXAMINATION: Shortness of Breath; Clinical: Shortness of breath.; ; Technique: PA and lateral.; ; Comparison: 07/03/2016.; ; Findings:; Cardiomegaly with pacemaker and valve replacement stable and unchanged. Lung; herrera demonstrate chronic changes primarily involving the bilateral lung bases.; Superimposed acute basilar atelectasis cannot be excluded. Along with possible; small right acute versus chronic pleural reaction. No pneumothorax. Skeletal; structures stable.; ; Impression:; Relatively stable examination as described above. Cannot exclude trace basilar; atelectasis or small acute right pleural reaction.; ; ; Signed by; Sheldon Dickson MD 10/30/2016 01:28 P; Radiology Order: CT Chest Angio R/O PE Test: CT Chest Angio R/O PE REASON FOR EXAMINATION: Shortness of Breath; Clinical: Acute chest pain and shortness of breath.; ; Technique: Axial contrast enhanced images from the thoracic inlet to the upper; abdomen using 100 ml Isovue 370 intravenous contrast material with coronal and; sagittal re-formations.; ; Findings:; Respiratory motion significantly limits evaluation. No obvious main or first; order pulmonary emboli are identified and evaluation of the more distal pulmonary; arterial system is limited. Thoracic aorta demonstrates atherosclerotic changes; without aneurysm or dissection. Heart and pericardium demonstrate degenerative; changes and evidence for aortic valve repair without cardiomegaly or pericardial; effusion. Lung herrera demonstrate chronic changes along with bibasilar; atelectasis and small pleural reactions (right greater than left). No; pneumothorax. No adenopathy. Skeletal structures demonstrate degenerative; changes without focal osseous abnormality; ; Impression:; Limited examination but without obvious pulmonary emboli.; Mild bibasilar atelectasis and small pleural reactions (right greater than left).; ; ; ; Signed by; Sheldon Dickson MD 10/30/2016 02:38 P; Outcome: 17:56 Decision to Hospitalize by Provider. br1 10/31 12:42 Discharge Assessment: Patient awake and alert. patient administered narcotics - no. The ead following High Risk Discharge criteria are identified: None. Admitted to ICU accompanied by nurse, via stretcher, on monitor, with chart, Other PCU pt to room 3204. Condition: stable. No special radiology studies were completed. Property :Personal belongings accompany Pt. 13:08 Patient left the ED. [facility] Signatures: Dispatcher [employer] EDMS Elyssa Irwin, RN RN Kathy Bustillos, Matty Reg Shayan Stewart, RN Rajiv Pace MD MD br1 Salazar Quiroga Shannon, RN RN sls1 Zack Jin Margaret RN RN mk4 Arvin Lopez, MECHANICAL SHOVEL OPERATOR MECHANICAL SHOVEL OPERATOR Kimmy Thomas,RN RN Osman Ngo, MECHANICAL SHOVEL OPERATOR MECHANICAL SHOVEL OPERATOR d Cleo Pinto,RN RN af2 Corrections: (The following items were deleted from the chart) 10/30 13:05 12:08 Derm: Skin is pink, warm & dry. dy dy 13:17 11:51 Home Meds: torsemide 20 mg oral tab 1 tab once daily; dy dy Chart Complete MTDD
--- NOTE | 2016-11-02 14:09 | EDDOCDS ---
Physician Documentation [facility] Name: Jj Macias Age: 86 yrs Sex: Male : 1930 Arrival Date: 10/30/2016 Time: 11:42 Bed Admit Hold Private MD: David Henderson N Disposition: 10/30/16 17:56 Hospitalization ordered by Ginny Leach for Inpatient Admission. Preliminary diagnosis is Shortness of breath - Hypoxia. - Bed requested for M ICU. - Status is Inpatient Admission. mcp - Condition is Stable. - Problem is new. - Symptoms are unchanged. Historical: - Allergies: No known drug Allergies; - Home Meds: 1. allopurinol 300 mg Oral tab 1 tab once daily 2. aspirin 81 mg Oral chew 1 tab once daily 3. bisoprolol fumarate 2.5 mg oral twice a day 4. Eliquis 5 mg oral tab 2 times per day 5. glimepiride 1 mg Oral tab 1 tab once daily 6. lisinopril 2.5 mg Oral tab once daily 7. simvastatin 80 mg Oral tab daily 8. Symbicort 160-4.5mcg act. 2 puffs BID 9. torsemide 20 mg oral tab 1 tab twice a day - PMHx: CAD; Hypercholesterolemia; Hypertension; - PSHx: Pacemaker insertion 2004; - Social history: Smoking status: No barriers to communication noted, The patient speaks fluent Ivorian, Speaks appropriately for age. - Family history: Not pertinent. - : The pt / caregiver states he / she is on anticoagulants: Eliquis Unable to Verify Home Med List with the patient / caregiver. - Exposure Risk Screening:: None identified. Vital Signs: 10/30 12:04 BP 137 / 78; Pulse 80; Resp 18; Pulse Ox 93% on R/A; Weight 149.69 kg / 330.01 lbs (R); jrd Height 5 ft. 11 in. (180.34 cm); 12:15 Temp 98.1; Pain 0/10; jrd 12:34 BP 144 / 67 (auto/); mk4 12:34 Pulse 76 MON; Pulse Ox 93% ; mk4 12:48 Pulse 70 MON; Pulse Ox 93% ; mk4 12:49 BP 173 / 91 (auto/); mk4 13:04 BP 168 / 81 (auto/); mk4 13:04 Pulse 78 MON; Pulse Ox 99% ; mk4 13:18 Pulse 86 MON; Pulse Ox 96% ; mk4 13:19 BP 172 / 84 (auto/); mk4 13:33 Pulse 74 MON; Pulse Ox 99% ; mk4 13:34 BP 172 / 95 (auto/); mk4 13:48 Pulse 76 MON; Pulse Ox 99% ; mk4 13:49 BP 193 / 84 (auto/); mk4 14:04 BP 188 / 91 (auto/); mk4 14:04 Pulse 76 MON; Pulse Ox 99% ; mk4 14:32 Pulse 82 MON; Pulse Ox 80% ; mk4 14:33 BP 233 / 118 (auto/); mk4 14:34 BP 215 / 95 (auto/); mk4 14:35 Pulse 80 MON; Pulse Ox 96% ; mk4 14:52 BP 143 / 63 (auto/); mk4 14:53 Pulse 66 MON; Pulse Ox 90% ; mk4 15:19 BP 192 / 79 (auto/); mk4 15:19 Pulse 102 MON; Pulse Ox 99% ; mk4 15:34 BP 182 / 74 (auto/); mk4 15:34 Pulse 80 MON; Pulse Ox 100% ; mk4 19:07 BP 126 / 83 (auto/); mk4 19:07 Pulse 80 MON; Pulse Ox 92% ; mk4 12:04 Body Mass Index 46.03 (149.69 kg, 180.34 cm) jrd MDM: 11:44 Project Program Manager/Pulse Ox/q 15 min VS ordered. sd1 11:44 IV Saline Lock ordered. sd1 11:44 Oxygen at 4L/Min NC or Home dosage ordered. sd1 11:44 Rhythm Strip to chart ordered. sd1 11:45 CBC with Diff Ordered. EDMS 11:45 Cardiac Injury Profile Ordered. EDMS 11:45 Liver Profile Ordered. EDMS 11:45 MED Profile Ordered. EDMS 11:45 Thyroid Stimulating Hormone Ordered. EDMS 11:45 Troponin Ordered. EDMS 11:46 ECG WITH READING ER PHYS+CARDIAG ordered. EDMS 12:56 BNP Ordered. EDMS 12:56 Call Respiratory ordered. br1 12:56 Albuterol-Ipratropium 3 ml Inhalation once ordered. br1 12:57 Chest, 2 View (pa\E\lat) Ordered. EDMS 12:57 -Arterial Blood Gas Ordered. EDMS 12:57 -Influenza A&B Rapid Antigen - Nose Ordered. EDMS 12:58 Call Respiratory complete. jlf 13:05 CBC with Diff Reviewed. br1 13:05 Liver Profile Reviewed. br1 13:05 MED Profile Reviewed. br1 13:05 Cardiac Injury Profile Reviewed. br1 13:05 Thyroid Stimulating Hormone Reviewed. br1 13:05 Troponin Reviewed. br1 13:53 -Arterial Blood Gas Reviewed. br1 13:53 -Influenza A&B Rapid Antigen - Nose Reviewed. br1 14:01 CT Chest Angio R/O PE Ordered. EDMS 14:18 BNP Reviewed. br1 14:18 Chest, 2 View (pa\E\lat) Reviewed. br1 14:43 Ambulate Patient wt Pulse Oximetry ordered. br1 14:51 PHYSICAL THERAPY EVAL & TREAT+PT ordered. EDMS 15:11 PHYSICAL THERAPY EVAL & TREAT ordered. EDMS 15:58 BED REQUEST+ADM ordered. EDMS 16:59 Financial registration complete. jpb 17:00 [facility] Payment Agreement was scanned into [employer] and attached to record. jpb 17:28 REGULAR+DIET ordered. EDMS 18:30 Admission / Observation Status ordered. EDMS 18:30 ECHOCARD,DOPPLER/COLOR FLOW ordered. EDMS 18:30 ELECTROCARDIOGRAM ADULT ordered. EDMS 18:30 NO ADDED SALT DIET ordered. EDMS 18:30 CARDIAC MARKER PANEL Ordered. EDMS 18:32 PHYSICAL THERAPY EVAL & TREAT ordered. EDMS 19:32 BASIC METABOLIC PROFILE Ordered. EDMS 19:32 CBC WITH DIFFERENTIAL Ordered. EDMS 19:32 CARDIAC MARKER PANEL Ordered. EDMS 21:51 HEMOGLOBIN A1C Ordered. EDMS 22:52 PT & APTT Ordered. EDMS 01 05:06 CARDIAC MARKER PANEL Ordered. EDMS 05:06 CARDIAC RISK PROFILE Ordered. EDMS 05:07 THYROID STIMULATING HORMONE Ordered. EDMS 12:06 Fingerstick Blood Sugar Ordered. EDMS 15:27 T-Sheet-- Draft Copy was scanned into [employer] and attached to record. gb 15:27 Radiology Report was scanned into [employer] and attached to record. gb 15:27 Other: MOLST was scanned into [employer] and attached to record. gb Administered Medications: 10/30 13:44 Drug: Albuterol-Ipratropium 3 ml [ipratropium-albuterol 0.5 mg-3 mg(2.5 mg base)/3 mL js11 nebulization soln (3 mL)] Route: Inhalation; Signatures: Dispatcher [employer] EDMS Gretel Dawson MD MD sd1 Elyssa Irwin, RN RN mcp Kathy Garcia, Matty Reg Shayan Stewart, RN RN dy Rajiv Iraheta MD MD br1 Zack Jin Margaret, RN RN [id number] Arvin Lopez, LIMOUSINE RENTAL CLERK LIMOUSINE RENTAL CLERK jlf Maria Dolores Anguiano RN RN sls2 Salazar Quiroga js11 The chart was reviewed and I authenticate all verbal orders and agree with the evaluation and treatment provided.Corrections: (The following items were deleted from the chart) 12:08 11:44 Accucheck ordered. sd1 dy 13:17 11:51 Home Meds: torsemide 20 mg oral tab 1 tab once daily; dy dy 22:57 22:52 PROTHROMBIN TIME PROFILE\E\INR ordered. EDMS EDMS 10/31 05:10/30 19:32 CARDIAC MARKER PANEL ordered. EDMS EDMS 10/31 05:10/30 21:52 CARDIAC RISK PROFILE ordered. EDMS EDMS 10/31 05:10/30 21:52 THYROID STIMULATING HORMONE ordered. [facility] EDMS Attachments: 17:00 [facility] Payment Agreement jpb 10/31 15:27 T-Sheet-- Draft Copy gb Chart Complete MTDD
--- NOTE | 2016-11-02 14:09 | EDDOCDS ---
Physician Documentation [facility] Name: Jj Macias Age: 86 yrs Sex: Male : 1930 Arrival Date: 10/30/2016 Time: 11:42 Bed Admit Hold Private MD: David Henderson N Disposition: 10/30/16 17:56 Hospitalization ordered by Ginny Leach for Inpatient Admission. Preliminary diagnosis is Shortness of breath - Hypoxia. - Bed requested for M ICU. - Status is Inpatient Admission. mcp - Condition is Stable. - Problem is new. - Symptoms are unchanged. Historical: - Allergies: No known drug Allergies; - Home Meds: 1. allopurinol 300 mg Oral tab 1 tab once daily 2. aspirin 81 mg Oral chew 1 tab once daily 3. bisoprolol fumarate 2.5 mg oral twice a day 4. Eliquis 5 mg oral tab 2 times per day 5. glimepiride 1 mg Oral tab 1 tab once daily 6. lisinopril 2.5 mg Oral tab once daily 7. simvastatin 80 mg Oral tab daily 8. Symbicort 160-4.5mcg act. 2 puffs BID 9. torsemide 20 mg oral tab 1 tab twice a day - PMHx: CAD; Hypercholesterolemia; Hypertension; - PSHx: Pacemaker insertion 2004; - Social history: Smoking status: No barriers to communication noted, The patient speaks fluent Cape Verdean, Speaks appropriately for age. - Family history: Not pertinent. - : The pt / caregiver states he / she is on anticoagulants: Eliquis Unable to Verify Home Med List with the patient / caregiver. - Exposure Risk Screening:: None identified. Vital Signs: 10/30 12:04 BP 137 / 78; Pulse 80; Resp 18; Pulse Ox 93% on R/A; Weight 149.69 kg / 330.01 lbs (R); jrd Height 5 ft. 11 in. (180.34 cm); 12:15 Temp 98.1; Pain 0/10; jrd 12:34 BP 144 / 67 (auto/); mk4 12:34 Pulse 76 MON; Pulse Ox 93% ; mk4 12:48 Pulse 70 MON; Pulse Ox 93% ; mk4 12:49 BP 173 / 91 (auto/); mk4 13:04 BP 168 / 81 (auto/); mk4 13:04 Pulse 78 MON; Pulse Ox 99% ; mk4 13:18 Pulse 86 MON; Pulse Ox 96% ; mk4 13:19 BP 172 / 84 (auto/); mk4 13:33 Pulse 74 MON; Pulse Ox 99% ; mk4 13:34 BP 172 / 95 (auto/); mk4 13:48 Pulse 76 MON; Pulse Ox 99% ; mk4 13:49 BP 193 / 84 (auto/); mk4 14:04 BP 188 / 91 (auto/); mk4 14:04 Pulse 76 MON; Pulse Ox 99% ; mk4 14:32 Pulse 82 MON; Pulse Ox 80% ; mk4 14:33 BP 233 / 118 (auto/); mk4 14:34 BP 215 / 95 (auto/); mk4 14:35 Pulse 80 MON; Pulse Ox 96% ; mk4 14:52 BP 143 / 63 (auto/); mk4 14:53 Pulse 66 MON; Pulse Ox 90% ; mk4 15:19 BP 192 / 79 (auto/); mk4 15:19 Pulse 102 MON; Pulse Ox 99% ; mk4 15:34 BP 182 / 74 (auto/); mk4 15:34 Pulse 80 MON; Pulse Ox 100% ; mk4 19:07 BP 126 / 83 (auto/); mk4 19:07 Pulse 80 MON; Pulse Ox 92% ; mk4 12:04 Body Mass Index 46.03 (149.69 kg, 180.34 cm) jrd MDM: 11:44 Paint Roller Covers Supervisor/Pulse Ox/q 15 min VS ordered. sd1 11:44 IV Saline Lock ordered. sd1 11:44 Oxygen at 4L/Min NC or Home dosage ordered. sd1 11:44 Rhythm Strip to chart ordered. sd1 11:45 CBC with Diff Ordered. EDMS 11:45 Cardiac Injury Profile Ordered. EDMS 11:45 Liver Profile Ordered. EDMS 11:45 MED Profile Ordered. EDMS 11:45 Thyroid Stimulating Hormone Ordered. EDMS 11:45 Troponin Ordered. EDMS 11:46 ECG WITH READING ER PHYS+CARDIAG ordered. EDMS 12:56 BNP Ordered. EDMS 12:56 Call Respiratory ordered. br1 12:56 Albuterol-Ipratropium 3 ml Inhalation once ordered. br1 12:57 Chest, 2 View (pa\E\lat) Ordered. EDMS 12:57 -Arterial Blood Gas Ordered. EDMS 12:57 -Influenza A&B Rapid Antigen - Nose Ordered. EDMS 12:58 Call Respiratory complete. jlf 13:05 CBC with Diff Reviewed. br1 13:05 Liver Profile Reviewed. br1 13:05 MED Profile Reviewed. br1 13:05 Cardiac Injury Profile Reviewed. br1 13:05 Thyroid Stimulating Hormone Reviewed. br1 13:05 Troponin Reviewed. br1 13:53 -Arterial Blood Gas Reviewed. br1 13:53 -Influenza A&B Rapid Antigen - Nose Reviewed. br1 14:01 CT Chest Angio R/O PE Ordered. EDMS 14:18 BNP Reviewed. br1 14:18 Chest, 2 View (pa\E\lat) Reviewed. br1 14:43 Ambulate Patient wt Pulse Oximetry ordered. br1 14:51 PHYSICAL THERAPY EVAL & TREAT+PT ordered. EDMS 15:11 PHYSICAL THERAPY EVAL & TREAT ordered. EDMS 15:58 BED REQUEST+ADM ordered. EDMS 16:59 Financial registration complete. jpb 17:00 [facility] Payment Agreement was scanned into [employer] and attached to record. jpb 17:28 REGULAR+DIET ordered. EDMS 18:30 Admission / Observation Status ordered. EDMS 18:30 ECHOCARD,DOPPLER/COLOR FLOW ordered. EDMS 18:30 ELECTROCARDIOGRAM ADULT ordered. EDMS 18:30 NO ADDED SALT DIET ordered. EDMS 18:30 CARDIAC MARKER PANEL Ordered. EDMS 18:32 PHYSICAL THERAPY EVAL & TREAT ordered. EDMS 19:32 BASIC METABOLIC PROFILE Ordered. EDMS 19:32 CBC WITH DIFFERENTIAL Ordered. EDMS 19:32 CARDIAC MARKER PANEL Ordered. EDMS 21:51 HEMOGLOBIN A1C Ordered. EDMS 22:52 PT & APTT Ordered. EDMS 01 05:06 CARDIAC MARKER PANEL Ordered. EDMS 05:06 CARDIAC RISK PROFILE Ordered. EDMS 05:07 THYROID STIMULATING HORMONE Ordered. EDMS 12:06 Fingerstick Blood Sugar Ordered. EDMS 15:27 T-Sheet-- Draft Copy was scanned into [employer] and attached to record. gb 15:27 Radiology Report was scanned into [employer] and attached to record. gb 15:27 Other: MOLST was scanned into [employer] and attached to record. gb Administered Medications: 10/30 13:44 Drug: Albuterol-Ipratropium 3 ml [ipratropium-albuterol 0.5 mg-3 mg(2.5 mg base)/3 mL js11 nebulization soln (3 mL)] Route: Inhalation; Signatures: Dispatcher [employer] EDMS Gretel Dawson MD MD sd1 Elyssa Irwin, RN RN mcp Kathy Garcia, Matty Reg Shayan Stewart, RN RN dy Rajiv Iraheta MD MD br1 Zack Jin Margaret, RN RN [id number] Arvin Lopez, SUPERVISOR FURNACE ROOM SUPERVISOR FURNACE ROOM jlf Maria Dolores Anguiano RN RN sls2 Salazar Quiroga js11 The chart was reviewed and I authenticate all verbal orders and agree with the evaluation and treatment provided.Corrections: (The following items were deleted from the chart) 12:08 11:44 Accucheck ordered. sd1 dy 13:17 11:51 Home Meds: torsemide 20 mg oral tab 1 tab once daily; dy dy 22:57 22:52 PROTHROMBIN TIME PROFILE\E\INR ordered. EDMS EDMS 10/31 05:10/30 19:32 CARDIAC MARKER PANEL ordered. EDMS EDMS 10/31 05:10/30 21:52 CARDIAC RISK PROFILE ordered. EDMS EDMS 10/31 05:10/30 21:52 THYROID STIMULATING HORMONE ordered. [facility] EDMS Attachments: 17:00 [facility] Payment Agreement jpb 10/31 15:27 T-Sheet-- Draft Copy gb Chart Complete MTDD
[2016-11-02] MEDS: AZITHROMYCIN INJ 500 MG, VIAL MATE ADAPTER 1 EACH in D5W 250 ML IV SCH (22:13)
[2016-11-02] MEDS: SIMVASTATIN 40 MG TAB PO SCH (22:14)
[2016-11-02] MEDS: VITAMIN D 1,000 INTERNATIONAL UNITS TABLET PO SCH (22:14)
[2016-11-03] MEDS: cefTRIAXone SOD 2 GM in D5W MINI-BAG PLUS 50 ML IV SCH ×2 (00:13→22:47)
[2016-11-03] MEDS: SLF 3 ML SYR IV SCH ×4 (00:13→22:00)
[2016-11-03] MEDS: IPRATROPIUM 0.5MG/ALBUTEROL 2.5MG INH SOL UD 3ML (DUONEB)(J7620) NEB SCH ×4 (01:17→19:36)
[2016-11-03 05:50] LABS: BASO % 0.2 % (0.0-1.0); EOS # 0.1 K/mm3 (0.0-0.50); EOS % 0.7 % (0.0-3.0); LARGE UNSTAINED CELL # 0.2 K/mm3 (0.0-0.4); LARGE UNSTAINED CELL % 1.4 % (0.0-4.0); LYMPH # 0.6 K/mm3 (1.5-4.5); LYMPH % 4.8 % (24.0-44.0); MEAN CORPUSCULAR HEMOGLOBIN 29.2 pg (27.0-33.0); MEAN CORPUSCULAR HGB CONC 31.5 g/dl (32.0-36.5); MEAN CORPUSCULAR VOLUME 92.6 fl (80.0-96.0); MONO # 0.4 K/mm3 (0.0-0.8); MONO % 3.6 % (0.0-5.0); NEUTROPHILS # 10.7 K/mm3 (1.8-7.7); NEUTROPHILS % 89.3 % (36.0-66.0); PLATELET COUNT, AUTOMATED 206 k/mm3 (150-450); RED CELL DISTRIBUTION WIDTH 14.2 % (11.5-14.5)
[2016-11-03 06:00] VITALS: BP 117/61
[2016-11-03 06:17] LABS: ANION GAP 13 MEQ/L (8-16); BLOOD UREA NITROGEN 20 MG/DL (7-18); CALCIUM LEVEL 8.6 MG/DL (8.8-10.2); CARBON DIOXIDE LEVEL 33 MEQ/L (21-32); CHLORIDE LEVEL 93 MEQ/L (98-107); CREATININE FOR GFR 0.93 MG/DL (0.70-1.30); GLOMERULAR FILTRATION RATE > 60.0 (>35); GLUCOSE, FASTING 102 MG/DL (83-110); POTASSIUM SERUM 3.6 MEQ/L (3.5-5.1); SODIUM LEVEL 139 MEQ/L (136-145)
[2016-11-03] MEDS: HumaLOG INSULIN (NovoLOG) PER UNIT SC SCH ×4 (07:30→21:00)
[2016-11-03] MEDS: APIXABAN 5 MG TAB (ELIQUIS) PO SCH ×2 (09:00→20:47)
[2016-11-03] MEDS: LISINOPRIL *2.5 MG* TAB PO SCH (09:00)
[2016-11-03] MEDS: SYMBICORT 160/4.5MCG INHALER 6GM INH SCH ×2 (09:17→19:36)
[2016-11-03] MEDS: ASPIRIN 81 MG ENTERIC TAB PO SCH (10:12)
[2016-11-03] MEDS: TORSEMIDE 20 MG TAB PO SCH ×2 (10:12→20:47)
[2016-11-03] MEDS: ALLOPURINOL 300 MG TAB PO SCH (10:13)
[2016-11-03] MEDS: BISOPROLOL FUMARATE 5 MG TAB PO SCH (10:13)
[2016-11-03 14:00] VITALS: BP 134/67
[2016-11-03] MEDS: VITAMIN D 1,000 INTERNATIONAL UNITS TABLET PO SCH (20:47)
[2016-11-03] MEDS: SIMVASTATIN 40 MG TAB PO SCH (20:48)
[2016-11-03] MEDS: ACETAMINOPHEN TAB 650MG DOSE (2X325MG) PO PRN (20:49)
[2016-11-03] MEDS: AZITHROMYCIN INJ 500 MG, VIAL MATE ADAPTER 1 EACH in D5W 250 ML IV SCH (20:52)
[2016-11-03 22:00] VITALS: BP 126/74
[2016-11-04] MEDS: IPRATROPIUM 0.5MG/ALBUTEROL 2.5MG INH SOL UD 3ML (DUONEB)(J7620) NEB SCH ×4 (02:00→19:45)
[2016-11-04] MEDS: SLF 3 ML SYR IV SCH ×3 (05:23→22:42)
[2016-11-04 05:44] LABS: BASO % 0.2 % (0.0-1.0); EOS # 0.1 K/mm3 (0.0-0.50); EOS % 1.3 % (0.0-3.0); LARGE UNSTAINED CELL # 0.2 K/mm3 (0.0-0.4); LARGE UNSTAINED CELL % 1.4 % (0.0-4.0); LYMPH # 0.6 K/mm3 (1.5-4.5); LYMPH % 5.8 % (24.0-44.0); MEAN CORPUSCULAR HEMOGLOBIN 28.9 pg (27.0-33.0); MEAN CORPUSCULAR HGB CONC 31.2 g/dl (32.0-36.5); MEAN CORPUSCULAR VOLUME 92.7 fl (80.0-96.0); MONO # 0.5 K/mm3 (0.0-0.8); MONO % 4.7 % (0.0-5.0); NEUTROPHILS % 86.6 % (36.0-66.0); PLATELET COUNT, AUTOMATED 195 k/mm3 (150-450); RED CELL DISTRIBUTION WIDTH 14.3 % (11.5-14.5); WHITE BLOOD COUNT 10.4 K/mm3 (4.0-10.0)
[2016-11-04 05:57] LABS: ANION GAP 7 MEQ/L (8-16); BLOOD UREA NITROGEN 25 MG/DL (7-18); CARBON DIOXIDE LEVEL 36 MEQ/L (21-32); CHLORIDE LEVEL 95 MEQ/L (98-107); CREATININE FOR GFR 1.02 MG/DL (0.70-1.30); GLOMERULAR FILTRATION RATE > 60.0 (>35); GLUCOSE, FASTING 104 MG/DL (83-110); POTASSIUM SERUM 3.3 MEQ/L (3.5-5.1); SODIUM LEVEL 138 MEQ/L (136-145)
[2016-11-04 06:00] VITALS: BP 145/76
[2016-11-04] MEDS: SYMBICORT 160/4.5MCG INHALER 6GM INH SCH ×2 (07:18→19:43)
[2016-11-04] MEDS: HumaLOG INSULIN (NovoLOG) PER UNIT SC SCH ×4 (07:30→20:56)
[2016-11-04] MEDS: LISINOPRIL *2.5 MG* TAB PO SCH (09:00)
[2016-11-04] MEDS: ASPIRIN 81 MG ENTERIC TAB PO SCH (10:50)
[2016-11-04] MEDS: APIXABAN 5 MG TAB (ELIQUIS) PO SCH ×2 (10:50→20:54)
[2016-11-04] MEDS: TORSEMIDE 20 MG TAB PO SCH ×2 (10:51→20:54)
[2016-11-04] MEDS: BISOPROLOL FUMARATE 5 MG TAB PO SCH (10:52)
[2016-11-04] MEDS: ALLOPURINOL 300 MG TAB PO SCH (10:52)
--- NOTE | 2016-11-04 12:18 | IPNPDOC ---
Assessment/Plan Date Seen The patient was seen on 11/03/16. Problems Problems: (1) Shortness of breath Status: Chronic Response to Treatment: Improving Discussed With: Patient Problem Specific Plan: Monitor Clinically Problem Text: Appears secondary to decompensated heart failure. Echo reveals preserved systolic function. Can resume PO torsemide, supplemental O2 at his baseline requirements - 2L via nasal cannula. Ceftriaxone/Azithro for possible superimposed CAP. Add incentive spirometry. (2) CAD (coronary artery disease) Status: Chronic Problem Text: Continue ASA, lisinopril, zebeta. (3) Afib Status: Chronic Problem Specific Plan: Monitor Clinically Problem Text: Rate controlled. Continue Zebeta. Continue Eliquis. (4) Non-compliance Status: Chronic Discussed With: Patient Problem Text: Further complicating factor to his medical care. (5) Morbid obesity Status: Acute Discussed With: Patient Problem Text: Further complicating factor to his medical care. (6) HTN (hypertension) Status: Chronic Problem Specific Plan: Monitor Clinically Problem Text: Lisinopril, Zebeta. (7) Dyslipidemia Status: Chronic Problem Text: Zocor (8) Gout Status: Chronic Discussed With: Patient (9) DM2 (diabetes mellitus, type 2) Status: Chronic Problem Specific Plan: Repeat Labs Problem Text: continue with FS and ISS Plan / VTE VTE Prophylaxis Ordered?: Yes (NOAC) Plan Diet: Continue Current Activity: Continue Current Medications: Change to PO Respiratory: Wean Oxygen Diagnostics: Repeat Labs in AM Anticipated Discharge: Home, Home With Services Subjective Review of Systems CC/HPI The patient is a 86-year-old male admitted with a reason for visit of SOB. General: Denies: Chills, Fatigue, Malaise, Night Sweats, Normal Appetite, Other Symptoms, ROS Unobtainable Constitutional: Denies: Chills, Fatigue, Fever, Lethargy, Malaise, Night Sweats , Other, Weakness, Weight Loss Eyes: Denies: Conjunctivae inflammation, Eyelid inflammation, Other, Pain, Redness, Vision change ENT: Denies: Dysphagia, Ear Pain, Epistaxis, Head Aches, Other Symptoms, Post Nasal Drip, Sinus Congestion, Sore Throat Skin: Denies: Breakdown, Bruising, Dry, Itching, Jaundice, Lesions, Nail Changes, Other, Rash Pulmonary: Denies: Cough, Dyspnea, Other Symptoms, Pleuritic Chest Pain Cardiovascular: Denies: Chest Pain, Edema, Lt Headedness, Orthopnea, Other Symptoms, Palpitations, Paroxysmal Noc. Dyspnea Objective Physical Examination General Exam: Positive: Alert, Cooperative, No Acute Distress Eye Exam: Positive: Conjunctiva & lids normal, PERRLA ENT Exam: Positive: Atraumatic Neck Exam: Positive: Supple Chest Exam: Positive: Clear to auscultation, Diminished Heart Exam: Positive: Irregular Rhythm, Rate Normal Abdomen Exam: Positive: Normal bowel sounds, Other (obese), Soft, Negative: Tenderness Extremity Exam: Positive: Edema Psych Exam: Positive: Mental status NL, Mood NL, Oriented x 3 Vital Signs/I&O Vital Signs Date Time Temp Pulse Resp B/P Pulse Ox O2 Delivery O2 Flow Rate FiO2 11/04/16 10:52 61 145/76 11/04/16 06:00 96.9 20 96 Nasal Cannula 2.0 I&O- Last 24 Hours up to 6 AM 11/04/16 06:00 Intake Total 1140 ml Output Total 1150 ml Balance -10 ml Laboratory Data Labs 24H Laboratory Tests 2 11/03/16 17:07: Bedside Glucose (Misc Panel) 113H 11/03/16 20:14: Bedside Glucose (Misc Panel) 150H 11/04/16 05:23: Anion Gap 7L, White Blood Count 10.4H, Red Blood Count 3.34L, Hemoglobin 9.7L, Hematocrit 31.0L, Mean Corpuscular Volume 92.7, Mean Corpuscular Hemoglobin 28.9 , Mean Corpuscular Hemoglobin Concent 31.2L, Red Cell Distribution Width 14.3, Platelet Count 195, Neutrophils (%) (Auto) 86.6H, Lymphocytes (%) (Auto) 5.8L, Monocytes (%) (Auto) 4.7, Eosinophils (%) (Auto) 1.3, Basophils (%) (Auto) 0.2, Neutrophils # (Auto) 9.0H, Lymphocytes # (Auto) 0.6L, Monocytes # (Auto) 0.5, Eosinophils # (Auto) 0.1, Basophils # (Auto) 0.0, Blood Urea Nitrogen 25H, Creatinine 1.02, Sodium Level 138, Potassium Level 3.3L, Chloride Level 95L, Carbon Dioxide Level 36H, Calcium Level 9.0, Glomerular Filtration Rate > 60.0, Large Unclassified Cells # 0.2, Large Unclassified Cells % 1.4 CBC/BMP Laboratory Tests 11/04/16 05:23 Calcium Level 9.0, Red Blood Count 3.34 L, Mean Corpuscular Volume 92.7, Mean Corpuscular Hemoglobin 28.9, Mean Corpuscular Hemoglobin Concent 31.2 L, Red Cell Distribution Width 14.3, Neutrophils (%) (Auto) 86.6 H, Lymphocytes (%) ( Auto) 5.8 L, Monocytes (%) (Auto) 4.7, Eosinophils (%) (Auto) 1.3, Basophils (% ) (Auto) 0.2, Neutrophils # (Auto) 9.0 H, Lymphocytes # (Auto) 0.6 L, Monocytes # (Auto) 0.5, Eosinophils # (Auto) 0.1, Basophils # (Auto) 0.0 FSBS Laboratory Tests Test 11/03/16 17:07 11/03/16 20:14 Range/Units Bedside Glucose (Misc Panel) 113 150 83-110 MG/DL Microbiology Microbiology 10/31/16 MRSA Screen - Final, Complete 10/30/16 Influenza Virus Type A Antigen - Final, Complete 10/30/16 Influenza Virus Type B Antigen - Final, Complete PAU NAIK MD Nov 04, 2016 12:18
--- NOTE | 2016-11-04 12:21 | IPNPDOC ---
Assessment/Plan Date Seen The patient was seen on 11/04/16. Problems Problems: (1) Shortness of breath Status: Chronic Response to Treatment: Improving Discussed With: Patient Problem Specific Plan: Monitor Clinically Problem Text: Appears secondary to decompensated heart failure. Echo reveals preserved systolic function. Can resume PO torsemide, supplemental O2 at his baseline requirements - 2L via nasal cannula. Will complete course of antibiotics tomorrow (cef/azithro). Incentive spirometry. (2) CAD (coronary artery disease) Status: Chronic Problem Text: Continue ASA, lisinopril, zebeta. (3) Afib Status: Chronic Problem Specific Plan: Monitor Clinically Problem Text: Rate controlled. Continue Zebeta. Continue Eliquis. (4) Non-compliance Status: Chronic Discussed With: Patient Problem Text: Further complicating factor to his medical care. (5) Morbid obesity Status: Acute Discussed With: Patient Problem Text: Further complicating factor to his medical care. (6) HTN (hypertension) Status: Chronic Problem Specific Plan: Monitor Clinically Problem Text: Lisinopril, Zebeta. (7) Dyslipidemia Status: Chronic Problem Text: Zocor (8) Gout Status: Chronic Discussed With: Patient (9) DM2 (diabetes mellitus, type 2) Status: Chronic Problem Specific Plan: Repeat Labs Problem Text: continue with FS and ISS Plan / VTE VTE Prophylaxis Ordered?: Yes (NOAC) Plan Diet: Continue Current Activity: Continue Current Therapy: PT Medications: Change to PO Anticipated Discharge: Home, Home With Services Subjective Review of Systems CC/HPI The patient is a 86-year-old male admitted with a reason for visit of SOB. General: Denies: Chills, Fatigue, Malaise, Night Sweats, Normal Appetite, Other Symptoms, ROS Unobtainable Constitutional: Denies: Chills, Fatigue, Fever, Lethargy, Malaise, Night Sweats , Other, Weakness, Weight Loss Eyes: Denies: Conjunctivae inflammation, Eyelid inflammation, Other, Pain, Redness, Vision change ENT: Denies: Dysphagia, Ear Pain, Epistaxis, Head Aches, Other Symptoms, Post Nasal Drip, Sinus Congestion, Sore Throat Skin: Denies: Breakdown, Bruising, Dry, Itching, Jaundice, Lesions, Nail Changes, Other, Rash Pulmonary: Denies: Cough, Dyspnea, Other Symptoms, Pleuritic Chest Pain Cardiovascular: Denies: Chest Pain, Edema, Lt Headedness, Orthopnea, Other Symptoms, Palpitations, Paroxysmal Noc. Dyspnea Gastrointestinal: Denies: Abdominal Pain, Constipation, Diarrhea, Hematochezia , Melena, Nausea, Other Symptoms, Vomiting Objective Physical Examination General Exam: Positive: Alert, Cooperative, No Acute Distress Eye Exam: Positive: Conjunctiva & lids normal, PERRLA ENT Exam: Positive: Atraumatic Neck Exam: Positive: Supple Chest Exam: Positive: Clear to auscultation, Diminished Heart Exam: Positive: Irregular Rhythm, Rate Normal Abdomen Exam: Positive: Normal bowel sounds, Other (obese), Soft, Negative: Tenderness Extremity Exam: Positive: Edema Psych Exam: Positive: Mental status NL, Mood NL, Oriented x 3 Vital Signs/I&O Vital Signs Date Time Temp Pulse Resp B/P Pulse Ox O2 Delivery O2 Flow Rate FiO2 11/04/16 10:52 61 145/76 11/04/16 06:00 96.9 20 96 Nasal Cannula 2.0 I&O- Last 24 Hours up to 6 AM 11/04/16 06:00 Intake Total 1140 ml Output Total 1150 ml Balance -10 ml Laboratory Data Labs 24H Laboratory Tests 2 11/03/16 17:07: Bedside Glucose (Misc Panel) 113H 11/03/16 20:14: Bedside Glucose (Misc Panel) 150H 11/04/16 05:23: Anion Gap 7L, White Blood Count 10.4H, Red Blood Count 3.34L, Hemoglobin 9.7L, Hematocrit 31.0L, Mean Corpuscular Volume 92.7, Mean Corpuscular Hemoglobin 28.9 , Mean Corpuscular Hemoglobin Concent 31.2L, Red Cell Distribution Width 14.3, Platelet Count 195, Neutrophils (%) (Auto) 86.6H, Lymphocytes (%) (Auto) 5.8L, Monocytes (%) (Auto) 4.7, Eosinophils (%) (Auto) 1.3, Basophils (%) (Auto) 0.2, Neutrophils # (Auto) 9.0H, Lymphocytes # (Auto) 0.6L, Monocytes # (Auto) 0.5, Eosinophils # (Auto) 0.1, Basophils # (Auto) 0.0, Blood Urea Nitrogen 25H, Creatinine 1.02, Sodium Level 138, Potassium Level 3.3L, Chloride Level 95L, Carbon Dioxide Level 36H, Calcium Level 9.0, Glomerular Filtration Rate > 60.0, Large Unclassified Cells # 0.2, Large Unclassified Cells % 1.4 CBC/BMP Laboratory Tests 11/04/16 05:23 Calcium Level 9.0, Red Blood Count 3.34 L, Mean Corpuscular Volume 92.7, Mean Corpuscular Hemoglobin 28.9, Mean Corpuscular Hemoglobin Concent 31.2 L, Red Cell Distribution Width 14.3, Neutrophils (%) (Auto) 86.6 H, Lymphocytes (%) ( Auto) 5.8 L, Monocytes (%) (Auto) 4.7, Eosinophils (%) (Auto) 1.3, Basophils (% ) (Auto) 0.2, Neutrophils # (Auto) 9.0 H, Lymphocytes # (Auto) 0.6 L, Monocytes # (Auto) 0.5, Eosinophils # (Auto) 0.1, Basophils # (Auto) 0.0 FSBS Laboratory Tests Test 11/03/16 17:07 11/03/16 20:14 Range/Units Bedside Glucose (Misc Panel) 113 150 83-110 MG/DL Microbiology Microbiology 10/31/16 MRSA Screen - Final, Complete 10/30/16 Influenza Virus Type A Antigen - Final, Complete 10/30/16 Influenza Virus Type B Antigen - Final, Complete PAU NAIK MD Nov 04, 2016 12:21
[2016-11-04 14:00] VITALS: BP 138/75
[2016-11-04] MEDS: AZITHROMYCIN 250 MG TAB PO SCH (20:55)
[2016-11-04] MEDS: SIMVASTATIN 40 MG TAB PO SCH (20:55)
[2016-11-04] MEDS: VITAMIN D 1,000 INTERNATIONAL UNITS TABLET PO SCH (20:55)
[2016-11-04 22:00] VITALS: BP 130/70
[2016-11-04] MEDS: cefTRIAXone SOD 2 GM in D5W MINI-BAG PLUS 50 ML IV SCH (22:42)
[2016-11-05] MEDS: IPRATROPIUM 0.5MG/ALBUTEROL 2.5MG INH SOL UD 3ML (DUONEB)(J7620) NEB SCH ×4 (01:30→19:47)
[2016-11-05] MEDS: SLF 3 ML SYR IV SCH ×3 (05:52→21:47)
[2016-11-05 06:00] VITALS: BP 141/67
[2016-11-05] MEDS: LISINOPRIL *2.5 MG* TAB PO SCH (08:11)
[2016-11-05] MEDS: HumaLOG INSULIN (NovoLOG) PER UNIT SC SCH ×4 (08:11→21:00)
[2016-11-05] MEDS: ASPIRIN 81 MG ENTERIC TAB PO SCH (08:12)
[2016-11-05] MEDS: ALLOPURINOL 300 MG TAB PO SCH (08:12)
[2016-11-05] MEDS: APIXABAN 5 MG TAB (ELIQUIS) PO SCH ×2 (08:12→21:47)
[2016-11-05] MEDS: BISOPROLOL FUMARATE 5 MG TAB PO SCH (08:13)
[2016-11-05] MEDS: SYMBICORT 160/4.5MCG INHALER 6GM INH SCH ×2 (08:24→19:47)
[2016-11-05] MEDS ORDERED: POTASSIUM CHLORIDE 10 MEQ SR TABLET PO ONE (10:15)
[2016-11-05] MEDS: TORSEMIDE 20 MG TAB PO SCH ×2 (10:26→21:46)
[2016-11-05] MEDS: ACETAMINOPHEN TAB 650MG DOSE (2X325MG) PO PRN ×2 (10:41→21:46)
[2016-11-05 14:00] VITALS: BP 102/53
[2016-11-05 18:04] VITALS: BP 134/58
[2016-11-05 19:48] VITALS: O2SAT 98
[2016-11-05 20:00] VITALS: BP 107/58
[2016-11-05] MEDS: VITAMIN D 1,000 INTERNATIONAL UNITS TABLET PO SCH (21:46)
[2016-11-05] MEDS: AZITHROMYCIN 250 MG TAB PO SCH (21:46)
[2016-11-05] MEDS: SIMVASTATIN 40 MG TAB PO SCH (21:47)
[2016-11-05 22:00] VITALS: BP 107/58
[2016-11-06] MEDS: IPRATROPIUM 0.5MG/ALBUTEROL 2.5MG INH SOL UD 3ML (DUONEB)(J7620) NEB SCH ×4 (01:08→19:44)
[2016-11-06 01:09] VITALS: O2SAT 92
[2016-11-06] MEDS: SLF 3 ML SYR IV SCH ×3 (04:50→22:00)
[2016-11-06 06:27] VITALS: BP 118/66
[2016-11-06] MEDS: SYMBICORT 160/4.5MCG INHALER 6GM INH SCH ×2 (07:59→19:31)
[2016-11-06] MEDS: APIXABAN 5 MG TAB (ELIQUIS) PO SCH ×2 (08:11→21:42)
[2016-11-06] MEDS: ALLOPURINOL 300 MG TAB PO SCH (08:11)
[2016-11-06] MEDS: HumaLOG INSULIN (NovoLOG) PER UNIT SC SCH ×4 (08:11→21:00)
[2016-11-06] MEDS: ASPIRIN 81 MG ENTERIC TAB PO SCH (08:11)
[2016-11-06] MEDS: LISINOPRIL *2.5 MG* TAB PO SCH (08:11)
[2016-11-06] MEDS: TORSEMIDE 20 MG TAB PO SCH ×2 (08:12→21:44)
[2016-11-06] MEDS: BISOPROLOL FUMARATE 5 MG TAB PO SCH (08:12)
[2016-11-06 14:00] VITALS: BP 116/64
[2016-11-06] MEDS: ACETAMINOPHEN TAB 650MG DOSE (2X325MG) PO PRN ×2 (17:42→21:44)
--- NOTE | 2016-11-06 18:18 | IPNPDOC ---
Assessment/Plan Date Seen The patient was seen on 11/06/16. Problems Problems: (1) Shortness of breath Status: Chronic Response to Treatment: Improving Discussed With: Patient Problem Specific Plan: Monitor Clinically Problem Text: Appears secondary to decompensated heart failure. Echo reveals preserved systolic function. PO torsemide, supplemental O2 at his baseline requirements - 2L via nasal cannula. completed course of antibiotics (cef/azithro). Incentive spirometry. Discussed with daughter. Pt's breathing is approaching his baseline. Daughter is concerned about pt's home situation. He has intermittent confusion especially in the afternoon. He lives alone and family can not provide 24/7 care. (2) CAD (coronary artery disease) Status: Chronic Problem Text: Continue ASA, lisinopril, zebeta. (3) Afib Status: Chronic Problem Specific Plan: Monitor Clinically Problem Text: Rate controlled. Continue Zebeta. Continue Eliquis. (4) Non-compliance Status: Chronic Discussed With: Patient Problem Text: Further complicating factor to his medical care. (5) Morbid obesity Status: Acute Discussed With: Patient Problem Text: Further complicating factor to his medical care. (6) HTN (hypertension) Status: Chronic Problem Specific Plan: Monitor Clinically Problem Text: Lisinopril, Zebeta. (7) Dyslipidemia Status: Chronic Problem Text: Zocor (8) Gout Status: Chronic Discussed With: Patient (9) DM2 (diabetes mellitus, type 2) Status: Chronic Problem Specific Plan: Repeat Labs Problem Text: continue with FS and ISS Plan / VTE VTE Prophylaxis Ordered?: Yes (NOAC) Plan Diet: Continue Current Activity: Continue Current Therapy: PT Medications: Change to PO Anticipated Discharge: Home, Home With Services Subjective Review of Systems CC/HPI The patient is a 86-year-old male admitted with a reason for visit of SOB. Events since last encounter Patient is seen and examed in the room today. Pt still has difficulty breathing requiring O2 support. Pt participates physical therapy section. No overnight event is reported Objective Physical Examination General Exam: Positive: Alert, Cooperative, No Acute Distress Eye Exam: Positive: Conjunctiva & lids normal, PERRLA ENT Exam: Positive: Atraumatic Neck Exam: Positive: Supple Chest Exam: Positive: Clear to auscultation, Diminished Heart Exam: Positive: Irregular Rhythm, Rate Normal Abdomen Exam: Positive: Normal bowel sounds, Other (obese), Soft, Negative: Tenderness Extremity Exam: Positive: Edema Psych Exam: Positive: Mental status NL, Mood NL, Oriented x 3 Vital Signs/I&O Vital Signs Date Time Temp Pulse Resp B/P Pulse Ox O2 Delivery O2 Flow Rate FiO2 11/06/16 14:00 96.9 77 20 116/64 96 Nasal Cannula 2.0 I&O- Last 24 Hours up to 6 AM 11/06/16 06:00 Intake Total 710 ml Output Total 600 ml Balance 110 ml Laboratory Data Labs 24H Laboratory Tests 2 11/05/16 19:31: Bedside Glucose (Misc Panel) 131H 11/06/16 06:07: Bedside Glucose (Misc Panel) 111H 11/06/16 12:02: Bedside Glucose (Misc Panel) 77L 11/06/16 17:01: Bedside Glucose (Misc Panel) 117H FSBS Laboratory Tests Test 11/05/16 19:31 11/06/16 06:07 11/06/16 12:02 11/06/16 17:01 Range/Units Bedside Glucose (Misc Panel) 131 111 77 117 83-110 MG/DL Microbiology Microbiology 10/31/16 MRSA Screen - Final, Complete 10/30/16 Influenza Virus Type A Antigen - Final, Complete 10/30/16 Influenza Virus Type B Antigen - Final, Complete EMMA CONTRERAS DO Nov 06, 2016 18:18
[2016-11-06] MEDS ORDERED: AZITHROMYCIN 250 MG TAB PO SCH (21:00)
[2016-11-06] MEDS: VITAMIN D 1,000 INTERNATIONAL UNITS TABLET PO SCH (21:42)
[2016-11-06] MEDS: SIMVASTATIN 40 MG TAB PO SCH (21:42)
[2016-11-06 22:00] VITALS: BP 106/53
[2016-11-07] MEDS: IPRATROPIUM 0.5MG/ALBUTEROL 2.5MG INH SOL UD 3ML (DUONEB)(J7620) NEB SCH ×4 (02:00→20:00)
[2016-11-07] MEDS: SLF 3 ML SYR IV SCH ×3 (04:57→22:00)
[2016-11-07 06:00] VITALS: BP 119/59
[2016-11-07] MEDS: SYMBICORT 160/4.5MCG INHALER 6GM INH SCH ×2 (07:23→20:46)
[2016-11-07] MEDS: HumaLOG INSULIN (NovoLOG) PER UNIT SC SCH ×4 (08:00→20:54)
[2016-11-07] MEDS: BISOPROLOL FUMARATE 5 MG TAB PO SCH (09:11)
[2016-11-07] MEDS: APIXABAN 5 MG TAB (ELIQUIS) PO SCH ×2 (09:12→20:49)
[2016-11-07] MEDS: TORSEMIDE 20 MG TAB PO SCH ×2 (09:12→20:49)
[2016-11-07] MEDS: ALLOPURINOL 300 MG TAB PO SCH (09:12)
[2016-11-07] MEDS: ASPIRIN 81 MG ENTERIC TAB PO SCH (09:12)
[2016-11-07] MEDS: LISINOPRIL *2.5 MG* TAB PO SCH (09:12)
--- NOTE | 2016-11-07 18:06 | IPNPDOC ---
Assessment/Plan Date Seen The patient was seen on 11/07/16. Problems Problems: (1) Shortness of breath Status: Chronic Response to Treatment: Improving Discussed With: Patient Problem Specific Plan: Monitor Clinically Problem Text: Appears secondary to decompensated heart failure. Echo reveals preserved systolic function. PO torsemide, supplemental O2 at his baseline requirements - 2L via nasal cannula. completed course of antibiotics (cef/azithro). Incentive spirometry. Discussed with daughter. Pt's breathing is approaching his baseline. Daughter is concerned about pt's home situation. He has intermittent confusion especially in the afternoon. He lives alone and family can not provide 24/7 care. Social service is consulted. Searching for placement options. (2) CAD (coronary artery disease) Status: Chronic Problem Text: Continue ASA, lisinopril, zebeta. (3) Afib Status: Chronic Problem Specific Plan: Monitor Clinically Problem Text: Rate controlled. Continue Zebeta. Continue Eliquis. (4) Non-compliance Status: Chronic Discussed With: Patient Problem Text: Further complicating factor to his medical care. (5) Morbid obesity Status: Acute Discussed With: Patient Problem Text: Further complicating factor to his medical care. (6) HTN (hypertension) Status: Chronic Problem Specific Plan: Monitor Clinically Problem Text: Lisinopril, Zebeta. (7) Dyslipidemia Status: Chronic Problem Text: Zocor (8) Gout Status: Chronic Discussed With: Patient (9) DM2 (diabetes mellitus, type 2) Status: Chronic Problem Specific Plan: Repeat Labs Problem Text: continue with FS and ISS Plan / VTE VTE Prophylaxis Ordered?: Yes (NOAC) Plan Diet: Continue Current Activity: Continue Current Therapy: PT Medications: Change to PO Anticipated Discharge: Home, Home With Services Subjective Review of Systems CC/HPI The patient is a 86-year-old male admitted with a reason for visit of SOB. Events since last encounter Patient is seen and examed in the room today. He states he is feeling better. His breathing is approaching his baseline. Patient had decreased mentation in the afternoon. Objective Physical Examination General Exam: Positive: Alert, Cooperative, No Acute Distress Eye Exam: Positive: Conjunctiva & lids normal, PERRLA ENT Exam: Positive: Atraumatic Neck Exam: Positive: Supple Chest Exam: Positive: Clear to auscultation, Diminished Heart Exam: Positive: Irregular Rhythm, Rate Normal Abdomen Exam: Positive: Normal bowel sounds, Other (obese), Soft, Negative: Tenderness Extremity Exam: Positive: Edema Psych Exam: Positive: Mental status NL, Mood NL, Oriented x 3 Vital Signs/I&O Vital Signs Date Time Temp Pulse Resp B/P Pulse Ox O2 Delivery O2 Flow Rate FiO2 11/07/16 11:49 Nasal Cannula 2.0 11/07/16 09:12 119/59 11/07/16 09:11 69 11/07/16 06:00 96.0 18 97 I&O- Last 24 Hours up to 6 AM 11/07/16 06:00 Intake Total 1140 ml Output Total 975 ml Balance 165 ml Laboratory Data Labs 24H Laboratory Tests 2 11/06/16 20:00: Bedside Glucose (Misc Panel) 155H 11/07/16 06:20: B-Type Natriuretic Peptide 149H, C-Reactive Protein, Quantitative 7.69H 11/07/16 06:34: Bedside Glucose (Misc Panel) 105 11/07/16 11:38: Bedside Glucose (Misc Panel) 81L 11/07/16 13:12: Bedside Glucose (Misc Panel) 83 11/07/16 16:57: Bedside Glucose (Misc Panel) 145H FSBS Laboratory Tests Test 11/06/16 20:00 11/07/16 06:34 11/07/16 11:38 11/07/16 13:12 Range/Units Bedside Glucose (Misc Panel) 155 105 81 83 83-110 MG/DL Test 11/07/16 16:57 Range/Units Bedside Glucose (Misc Panel) 145 83-110 MG/DL Microbiology Microbiology 10/31/16 MRSA Screen - Final, Complete 10/30/16 Influenza Virus Type A Antigen - Final, Complete 10/30/16 Influenza Virus Type B Antigen - Final, Complete EMMA CONTRERAS DO Nov 07, 2016 18:06
[2016-11-07] MEDS: VITAMIN D 1,000 INTERNATIONAL UNITS TABLET PO SCH (20:49)
[2016-11-07] MEDS: SIMVASTATIN 40 MG TAB PO SCH (20:49)
[2016-11-07 22:00] VITALS: BP 111/53
[2016-11-08] MEDS: IPRATROPIUM 0.5MG/ALBUTEROL 2.5MG INH SOL UD 3ML (DUONEB)(J7620) NEB SCH ×4 (02:00→20:00)
[2016-11-08] MEDS: SLF 3 ML SYR IV SCH ×4 (05:35→20:54)
[2016-11-08 06:00] VITALS: BP 131/70
[2016-11-08] MEDS: HumaLOG INSULIN (NovoLOG) PER UNIT SC SCH ×4 (07:30→20:52)
[2016-11-08] MEDS: SYMBICORT 160/4.5MCG INHALER 6GM INH SCH ×2 (07:41→20:26)
[2016-11-08] MEDS: APIXABAN 5 MG TAB (ELIQUIS) PO SCH ×2 (09:30→20:51)
[2016-11-08] MEDS: TORSEMIDE 20 MG TAB PO SCH ×2 (09:30→20:51)
[2016-11-08] MEDS: ASPIRIN 81 MG ENTERIC TAB PO SCH (09:30)
[2016-11-08] MEDS: BISOPROLOL FUMARATE 5 MG TAB PO SCH (09:31)
[2016-11-08] MEDS: ALLOPURINOL 300 MG TAB PO SCH (09:32)
[2016-11-08] MEDS: LISINOPRIL *2.5 MG* TAB PO SCH (09:32)
--- NOTE | 2016-11-08 17:35 | IPNPDOC ---
Assessment/Plan Date Seen The patient was seen on 11/08/16. Problems Problems: (1) Shortness of breath Status: Chronic Response to Treatment: Improving Discussed With: Patient Problem Specific Plan: Monitor Clinically Problem Text: Appears secondary to decompensated heart failure. Echo reveals preserved systolic function. PO torsemide, supplemental O2 at his baseline requirements - 2L via nasal cannula. Will follow fluid status completed course of antibiotics (cef/azithro). Incentive spirometry. Discussed with daughter. Pt's breathing is approaching his baseline. Daughter is concerned about pt's home situation. He has intermittent confusion especially in the afternoon. He lives alone and family can not provide 24/7 care. Social service is consulted. Searching for placement options. (2) CAD (coronary artery disease) Status: Chronic Problem Text: Continue ASA, lisinopril, zebeta. (3) Afib Status: Chronic Problem Specific Plan: Monitor Clinically Problem Text: Rate controlled. Continue Zebeta. Continue Eliquis. (4) Non-compliance Status: Chronic Discussed With: Patient Problem Text: Further complicating factor to his medical care. (5) Morbid obesity Status: Acute Discussed With: Patient Problem Text: Further complicating factor to his medical care. (6) HTN (hypertension) Status: Chronic Problem Specific Plan: Monitor Clinically Problem Text: Lisinopril, Zebeta. (7) Dyslipidemia Status: Chronic Problem Text: Zocor (8) Gout Status: Chronic Discussed With: Patient (9) DM2 (diabetes mellitus, type 2) Status: Chronic Problem Specific Plan: Repeat Labs Problem Text: continue with FS and ISS Plan / VTE VTE Prophylaxis Ordered?: Yes (NOAC) Plan Diet: Continue Current Activity: Continue Current Therapy: PT Medications: Change to PO Anticipated Discharge: Home, Home With Services Subjective Review of Systems CC/HPI The patient is a 86-year-old male admitted with a reason for visit of SOB. Events since last encounter Patient is seen and examed in the room today. Patient is AOx3 in the morning. However, there has been multiple incidences where he has had decreased mentation in the afternoon. Objective Physical Examination General Exam: Positive: Alert, Cooperative, No Acute Distress Eye Exam: Positive: Conjunctiva & lids normal, PERRLA ENT Exam: Positive: Atraumatic Neck Exam: Positive: Supple Chest Exam: Positive: Clear to auscultation, Diminished Heart Exam: Positive: Irregular Rhythm, Rate Normal Abdomen Exam: Positive: Normal bowel sounds, Other (obese), Soft, Negative: Tenderness Extremity Exam: Positive: Edema Psych Exam: Positive: Mental status NL, Mood NL, Oriented x 3 Vital Signs/I&O Vital Signs Date Time Temp Pulse Resp B/P Pulse Ox O2 Delivery O2 Flow Rate FiO2 11/08/16 15:00 Nasal Cannula 2.0 11/08/16 09:32 136/63 11/08/16 09:31 81 11/08/16 06:00 97.8 18 97 I&O- Last 24 Hours up to 6 AM 11/08/16 06:00 Intake Total 20 ml Output Total 0 ml Balance 20 ml Laboratory Data Labs 24H Laboratory Tests 2 11/07/16 20:06: Bedside Glucose (Misc Panel) 172H 11/08/16 06:04: Bedside Glucose (Misc Panel) 100 11/08/16 11:48: Bedside Glucose (Misc Panel) 141H 11/08/16 16:43: Bedside Glucose (Misc Panel) 134H FSBS Laboratory Tests Test 11/07/16 20:06 11/08/16 06:04 11/08/16 11:48 11/08/16 16:43 Range/Units Bedside Glucose (Misc Panel) 172 100 141 134 83-110 MG/DL Microbiology Microbiology 10/31/16 MRSA Screen - Final, Complete 10/30/16 Influenza Virus Type A Antigen - Final, Complete 10/30/16 Influenza Virus Type B Antigen - Final, Complete EMMA CONTRERAS DO Nov 08, 2016 17:35
[2016-11-08] MEDS: VITAMIN D 1,000 INTERNATIONAL UNITS TABLET PO SCH (20:51)
[2016-11-08] MEDS: SIMVASTATIN 40 MG TAB PO SCH (20:51)
[2016-11-09] MEDS: IPRATROPIUM 0.5MG/ALBUTEROL 2.5MG INH SOL UD 3ML (DUONEB)(J7620) NEB SCH ×5 (00:45→22:27)
[2016-11-09 06:59] LABS: MEAN CORPUSCULAR HEMOGLOBIN 29.6 pg (27.0-33.0); MEAN CORPUSCULAR HGB CONC 31.6 g/dl (32.0-36.5); MEAN CORPUSCULAR VOLUME 93.5 fl (80.0-96.0); RED CELL DISTRIBUTION WIDTH 14.4 % (11.5-14.5); WHITE BLOOD COUNT 10.9 K/mm3 (4.0-10.0)
[2016-11-09 07:09] LABS: CALCIUM LEVEL 9.4 MG/DL (8.8-10.2); CREATININE FOR GFR 1.25 MG/DL (0.70-1.30); GLOMERULAR FILTRATION RATE 58.6 (>35); POTASSIUM SERUM 3.9 MEQ/L (3.5-5.1)
[2016-11-09] MEDS: SYMBICORT 160/4.5MCG INHALER 6GM INH SCH ×2 (07:12→16:43)
[2016-11-09] MEDS: BISOPROLOL FUMARATE 5 MG TAB PO SCH (08:44)
[2016-11-09] MEDS: LISINOPRIL *2.5 MG* TAB PO SCH (08:44)
[2016-11-09] MEDS: ASPIRIN 81 MG ENTERIC TAB PO SCH (08:45)
[2016-11-09] MEDS: ALLOPURINOL 300 MG TAB PO SCH (08:45)
[2016-11-09] MEDS: TORSEMIDE 20 MG TAB PO SCH ×2 (08:45→20:37)
[2016-11-09] MEDS: APIXABAN 5 MG TAB (ELIQUIS) PO SCH ×3 (08:45→20:37)
[2016-11-09] MEDS: HumaLOG INSULIN (NovoLOG) PER UNIT SC SCH ×4 (08:46→21:00)
[2016-11-09 13:34] LABS: ABG BASE EXCESS 2.1 (-2.0-2.0); ABG HCO3 25.5 MEQ/L (22.0-26.0); ABG PARTIAL PRESSURE CO2 35.9 mmHg (35.0-45.0); ABG PARTIAL PRESSURE O2 207.5 mmHg (75.0-100.0); ABG STANDARD HCO3 26.4 MEQ/L (22.0-26.0); ABG TOTAL CO2 26.6 MEQ/L (23.0-31.0)
[2016-11-09 14:00] VITALS: BP 128/72
--- NOTE | 2016-11-09 16:33 | REP ---
Chest x-ray: Two views: History: Shortness of breath. Comparison chest x-ray is from 10/30/2016. Findings: The patient is status post aortic valve replacement and a bipolar pacemaker is seen in the right heart via the left side. Cardiomegaly is observed unchanged from the comparison study. There is slight blunting of the posterior pleural angles again noted. There is discoid atelectasis in the lower lobes bilaterally. This is a little more pronounced on today's examination. No new infiltrate is seen. Upper lung herrera appear clear. The aorta is calcific and a bit tortuous. Impression: Pacemaker and aortic valve replacement with cardiomegaly. Very small bilateral pleural effusions and bilateral lower lobe discoid atelectasis seen. Signed by Bird Simons MD 11/09/2016 05:04 P
--- NOTE | 2016-11-09 17:11 | IPNPDOC ---
Assessment/Plan Date Seen The patient was seen on 11/09/16. Problems Problems: (1) Altered mental status Status: Acute Problem Text: * Intermittent confusion with hallucination. * follow up with ABG, CXR, blood cultures, urine culture. (2) Shortness of breath Status: Chronic Response to Treatment: Improving Discussed With: Patient Problem Specific Plan: Monitor Clinically Problem Text: Appears secondary to decompensated heart failure. Echo reveals preserved systolic function. PO torsemide, supplemental O2 at his baseline requirements - 2L via nasal cannula. Will follow fluid status completed course of antibiotics (cef/azithro). Incentive spirometry. Discussed with daughter. Pt's breathing is approaching his baseline. Daughter is concerned about pt's home situation. He has intermittent confusion especially in the afternoon. He lives alone and family can not provide 24/7 care. Social service is consulted. Searching for placement options. (3) CAD (coronary artery disease) Status: Chronic Problem Text: Continue ASA, lisinopril, zebeta. (4) Afib Status: Chronic Problem Specific Plan: Monitor Clinically Problem Text: Rate controlled. Continue Zebeta. Continue Eliquis. (5) Non-compliance Status: Chronic Discussed With: Patient Problem Text: Further complicating factor to his medical care. (6) Morbid obesity Status: Acute Discussed With: Patient Problem Text: Further complicating factor to his medical care. (7) HTN (hypertension) Status: Chronic Problem Specific Plan: Monitor Clinically Problem Text: Lisinopril, Zebeta. (8) Dyslipidemia Status: Chronic Problem Text: Zocor (9) Gout Status: Chronic Discussed With: Patient (10) DM2 (diabetes mellitus, type 2) Status: Chronic Problem Specific Plan: Repeat Labs Problem Text: continue with FS and ISS (11) LING (obstructive sleep apnea) Status: Chronic Problem Text: * Patient is on LING protocol. (12) Poor appetite Status: Chronic Response to Treatment: Controlled, Uncontrolled Problem Text: * Per family member, patient has been having poor appetite for several months. * Will consider start IV fluid support if patient continues have poor oral intake. Plan / VTE VTE Prophylaxis Ordered?: Yes (NOAC) Plan Diet: Continue Current Activity: Continue Current Therapy: PT Medications: Change to PO Anticipated Discharge: Home, Home With Services Subjective Review of Systems CC/HPI The patient is a 86-year-old male admitted with a reason for visit of SOB. Events since last encounter Patient continues to have poor appetite. Patient feels fatigue most of the time. Patient continues to have intermittent confusion. I discussed with patient 's daughter. She states patient starts having memory issue in the last few months but he never had hallucination at home. He has had poor appetite issue for past few months. Objective Physical Examination General Exam: Positive: Alert, Cooperative, No Acute Distress Eye Exam: Positive: Conjunctiva & lids normal, PERRLA ENT Exam: Positive: Atraumatic Neck Exam: Positive: Supple Chest Exam: Positive: Clear to auscultation, Diminished Heart Exam: Positive: Irregular Rhythm, Rate Normal Abdomen Exam: Positive: Normal bowel sounds, Other (obese), Soft, Negative: Tenderness Extremity Exam: Positive: Edema Psych Exam: Positive: Mental status NL, Mood NL, Oriented x 3 Vital Signs/I&O Vital Signs Date Time Temp Pulse Resp B/P Pulse Ox O2 Delivery O2 Flow Rate FiO2 11/09/16 09:45 Nasal Cannula 2.0 11/09/16 08:44 136/63 11/09/16 08:44 69 11/09/16 06:00 97.6 18 96 I&O- Last 24 Hours up to 6 AM 11/09/16 06:00 Intake Total 1380 ml Output Total 650 ml Balance 730 ml Laboratory Data Labs 24H Laboratory Tests 2 11/08/16 20:04: Bedside Glucose (Misc Panel) 111H 11/09/16 06:31: Anion Gap 8, C-Reactive Protein, Quantitative 6.65H, Blood Urea Nitrogen 34H, Creatinine 1.25, Sodium Level 139, Potassium Level 3.9, Chloride Level 98, Carbon Dioxide Level 33H, Calcium Level 9.4, Glomerular Filtration Rate 58.6 11/09/16 11:59: Bedside Glucose (Misc Panel) 115H 11/09/16 13:11: Arterial Blood pH 7.470H, Arterial Blood Partial Pressure CO2 35.9, Arterial Blood Partial Pressure O2 207.5H, Arterial Blood Total CO2 26.6, Arterial Blood HCO3 25.5, Arterial Blood Base Excess 2.1H, Arterial Blood Oxygen Saturation 99.7H, Blood Gas Bicarbonate Standard 26.4H 11/09/16 13:17: B-Type Natriuretic Peptide 138H CBC/BMP Laboratory Tests 11/09/16 06:31 Calcium Level 9.4, Red Blood Count 3.32 L, Mean Corpuscular Volume 93.5, Mean Corpuscular Hemoglobin 29.6, Mean Corpuscular Hemoglobin Concent 31.6 L, Red Cell Distribution Width 14.4 FSBS Laboratory Tests Test 11/08/16 20:04 11/09/16 11:59 Range/Units Bedside Glucose (Misc Panel) 111 115 83-110 MG/DL Microbiology Microbiology 11/09/16 Blood Culture, Received Pending 11/09/16 Blood Culture, Received Pending 10/31/16 MRSA Screen - Final, Complete 10/30/16 Influenza Virus Type A Antigen - Final, Complete 10/30/16 Influenza Virus Type B Antigen - Final, Complete EMMA CONTRERAS DO Nov 09, 2016 17:11
[2016-11-09] MEDS: SIMVASTATIN 40 MG TAB PO SCH (20:37)
[2016-11-09] MEDS: VITAMIN D 1,000 INTERNATIONAL UNITS TABLET PO SCH (20:37)
[2016-11-09 22:00] VITALS: BP 134/66
[2016-11-10 06:00] VITALS: BP 125/63
[2016-11-10 07:01] LABS: ANION GAP 9 MEQ/L (8-16); BLOOD UREA NITROGEN 34 MG/DL (7-18); CALCIUM LEVEL 8.8 MG/DL (8.8-10.2); CARBON DIOXIDE LEVEL 31 MEQ/L (21-32); CHLORIDE LEVEL 98 MEQ/L (98-107); GLOMERULAR FILTRATION RATE > 60.0 (>35); GLUCOSE, FASTING 106 MG/DL (83-110); POTASSIUM SERUM 3.8 MEQ/L (3.5-5.1); SODIUM LEVEL 138 MEQ/L (136-145)
[2016-11-10 07:12] LABS: MEAN CORPUSCULAR HEMOGLOBIN 30.1 pg (27.0-33.0); MEAN CORPUSCULAR HGB CONC 32.6 g/dl (32.0-36.5); MEAN CORPUSCULAR VOLUME 92.4 fl (80.0-96.0); RED CELL DISTRIBUTION WIDTH 14.4 % (11.5-14.5); WHITE BLOOD COUNT 9.6 K/mm3 (4.0-10.0)
[2016-11-10] MEDS: HumaLOG INSULIN (NovoLOG) PER UNIT SC SCH ×4 (07:30→21:00)
[2016-11-10] MEDS: SYMBICORT 160/4.5MCG INHALER 6GM INH SCH ×2 (07:35→20:03)
[2016-11-10] MEDS: IPRATROPIUM 0.5MG/ALBUTEROL 2.5MG INH SOL UD 3ML (DUONEB)(J7620) NEB SCH ×3 (07:36→20:00)
[2016-11-10] MEDS: ASPIRIN 81 MG ENTERIC TAB PO SCH (09:48)
[2016-11-10] MEDS: TORSEMIDE 20 MG TAB PO SCH ×2 (09:48→20:58)
[2016-11-10] MEDS: LISINOPRIL *2.5 MG* TAB PO SCH (09:49)
[2016-11-10] MEDS: ALLOPURINOL 300 MG TAB PO SCH (09:49)
[2016-11-10] MEDS: BISOPROLOL FUMARATE 5 MG TAB PO SCH (09:49)
[2016-11-10] MEDS: APIXABAN 5 MG TAB (ELIQUIS) PO SCH ×2 (09:49→20:58)
[2016-11-10 11:25] LABS: ABG BASE EXCESS 9.2 (-2.0-2.0); ABG HCO3 33.8 MEQ/L (22.0-26.0); ABG PARTIAL PRESSURE CO2 45.7 mmHg (35.0-45.0); ABG PARTIAL PRESSURE O2 64.3 mmHg (75.0-100.0); ABG STANDARD HCO3 32.9 MEQ/L (22.0-26.0); ABG TOTAL CO2 35.2 MEQ/L (23.0-31.0); ABG pH (ARTERIAL) 7.487 UNITS (7.350-7.450)
[2016-11-10 14:00] VITALS: BP 114/61
--- NOTE | 2016-11-10 17:13 | IPNPDOC ---
Assessment/Plan Date Seen The patient was seen on 11/10/16. Problems Problems: (1) Shortness of breath Status: Chronic Response to Treatment: Improving Discussed With: Patient Problem Specific Plan: Monitor Clinically Problem Text: Appears secondary to decompensated heart failure. Echo reveals preserved systolic function. PO torsemide, supplemental O2 at his baseline requirements - 2L via nasal cannula. Will follow fluid status completed course of antibiotics (cef/azithro). Incentive spirometry ordered but patient has been very non-compliant. Discussed with daughter. Pt's breathing is approaching his baseline. Daughter is concerned about pt's home situation. He has intermittent confusion especially in the afternoon. He lives alone and family can not provide 24/7 care. Social service is consulted. Searching for placement options. (2) Altered mental status Status: Acute Problem Text: * Intermittent confusion with hallucination. * follow up with ABG, CXR, blood cultures, urine culture. (3) CAD (coronary artery disease) Status: Chronic Problem Text: Continue ASA, lisinopril, zebeta. (4) Afib Status: Chronic Problem Specific Plan: Monitor Clinically Problem Text: Rate controlled. Continue Zebeta. Continue Eliquis. (5) Non-compliance Status: Chronic Discussed With: Patient Problem Text: Further complicating factor to his medical care. (6) Morbid obesity Status: Acute Discussed With: Patient Problem Text: Further complicating factor to his medical care. (7) HTN (hypertension) Status: Chronic Problem Specific Plan: Monitor Clinically Problem Text: Lisinopril, Zebeta. (8) Dyslipidemia Status: Chronic Problem Text: Zocor (9) Gout Status: Chronic Discussed With: Patient (10) DM2 (diabetes mellitus, type 2) Status: Chronic Problem Specific Plan: Repeat Labs Problem Text: continue with FS and ISS (11) LING (obstructive sleep apnea) Status: Chronic Problem Text: * Severe LING. Unable to tolerate CPAP or BiPAP. * Patient is on LING protocol. On nasal canula. (12) Poor appetite Status: Chronic Response to Treatment: Controlled, Uncontrolled Problem Text: * Per family member, patient has been having poor appetite for several months. * Will consider start IV fluid support if patient continues have poor oral intake. (13) Systolic and diastolic CHF, acute on chronic Status: Acute Response to Treatment: Improving Problem Text: * Patient has been treated for CHF exacerbation. * Has systolic and diastolic CHF. (14) Hypoventilation associated with obesity Status: Acute (15) Tachy-robert syndrome Status: Chronic Problem Text: * Has dual chamber pacemaker. (16) Atelectasis Status: Acute Response to Treatment: Worse Problem Text: * Patient has been very non-compliant with incentive spirometry. Plan / VTE VTE Prophylaxis Ordered?: Yes (NOAC) Plan Diet: Continue Current Activity: Continue Current Therapy: PT Medications: Change to PO Anticipated Discharge: Home, Home With Services Subjective Review of Systems CC/HPI The patient is a 86-year-old male admitted with a reason for visit of SOB. Events since last encounter Patient has been seen and examed in the room today. Patient has been resting almost of the day. He has very poor oral intake. He has been very non-compliant with incentive spirometry. Objective Physical Examination General Exam: Positive: Alert, Cooperative, No Acute Distress Eye Exam: Positive: Conjunctiva & lids normal, PERRLA ENT Exam: Positive: Atraumatic Neck Exam: Positive: Supple Chest Exam: Positive: Clear to auscultation, Diminished Heart Exam: Positive: Irregular Rhythm, Rate Normal Abdomen Exam: Positive: Normal bowel sounds, Other (obese), Soft, Negative: Tenderness Extremity Exam: Positive: Edema Psych Exam: Positive: Mental status NL, Mood NL, Oriented x 3 Vital Signs/I&O Vital Signs Date Time Temp Pulse Resp B/P Pulse Ox O2 Delivery O2 Flow Rate FiO2 11/10/16 14:00 97.4 73 18 114/61 95 Room Air 11/10/16 06:00 2.0 I&O- Last 24 Hours up to 6 AM 11/10/16 06:00 Intake Total 1380 ml Output Total 750 ml Balance 630 ml Laboratory Data Labs 24H Laboratory Tests 2 11/09/16 19:49: Bedside Glucose (Misc Panel) 122H 11/10/16 06:27: Anion Gap 9, Blood Urea Nitrogen 34H, Creatinine 1.10, Sodium Level 138, Potassium Level 3.8, Chloride Level 98, Carbon Dioxide Level 31, Calcium Level 8.8, Glomerular Filtration Rate > 60.0 11/10/16 11:18: Arterial Blood pH 7.487H, Arterial Blood Partial Pressure CO2 45.7H, Arterial Blood Partial Pressure O2 64.3L, Arterial Blood Total CO2 35.2H, Arterial Blood HCO3 33.8H, Arterial Blood Base Excess 9.2H, Arterial Blood Oxygen Saturation 92.7L, Blood Gas Bicarbonate Standard 32.9H 11/10/16 11:46: Bedside Glucose (Misc Panel) 128H 11/10/16 14:21: Urine Amorphous Sediment , Urine Appearance CLEAR, Urine Color YELLOW, Urine pH 6.0, Urine Specific Perry 1.008, Urine Protein NEGATIVE, Urine Glucose (UA) NEGATIVE, Urine Ketones NEGATIVE, Urine Urobilinogen 0.2, Urine Bilirubin NEGATIVE, Urine Leukocyte Esterase TRACEH, Urine Bacteria (Auto) NEGATIVE, Urine Blood 1+H, Urine Calcium Carbonate Cryst(Auto) , Urine Calcium Oxalate Cryst (Auto) , Urine Calcium Phosphate Alondra (Auto) , Urine Cellular Casts , Urine Cystine Crystals , Urine Granular Casts (Auto) , Urine Hyaline Casts (Auto ) 0, Urine Leucine Crystals , Urine Mucus (Auto) SMALL, Urine Nitrite NEGATIVE, Urine Oval Fat Bodies (Auto) , Urine RBC (Auto) 4H, Urine Renal Epithelial Cells , Urine Sperm (Auto) , Urine Squamous Epithelial Cells 0, Urine Transitional Epithelial Cells , Urine Trichomonas (Auto) , Urine Triple Phosphate Cryst (Auto) , Urine Tyrosine Crystals , Urine Uric Acid Crystals ( Auto) , Urine WBC (Auto) 2, Urine Waxy Casts (Auto) , Urine Yeast-Like Cells ( Auto) 11/10/16 16:24: Bedside Glucose (Misc Panel) 121H CBC/BMP Laboratory Tests 11/10/16 06:27 Calcium Level 8.8, Red Blood Count 3.47 L, Mean Corpuscular Volume 92.4, Mean Corpuscular Hemoglobin 30.1, Mean Corpuscular Hemoglobin Concent 32.6, Red Cell Distribution Width 14.4 FSBS Laboratory Tests Test 11/09/16 19:49 11/10/16 11:46 11/10/16 16:24 Range/Units Bedside Glucose (Misc Panel) 122 128 121 83-110 MG/DL Microbiology Microbiology 11/09/16 Blood Culture - Preliminary, Resulted No growth after 24 hours . All specim... 11/09/16 Blood Culture - Preliminary, Resulted No growth after 24 hours . All specim... 10/31/16 MRSA Screen - Final, Complete 11/10/16 Urine Culture, Received Pending EMMA CONTRERAS DO Nov 10, 2016 17:13
[2016-11-10 20:02] VITALS: O2SAT 94
[2016-11-10] MEDS: VITAMIN D 1,000 INTERNATIONAL UNITS TABLET PO SCH (20:58)
[2016-11-10] MEDS: SIMVASTATIN 40 MG TAB PO SCH (20:58)
[2016-11-10 22:00] VITALS: BP 114/57
[2016-11-11] MEDS: IPRATROPIUM 0.5MG/ALBUTEROL 2.5MG INH SOL UD 3ML (DUONEB)(J7620) NEB SCH ×4 (01:34→19:58)
[2016-11-11 06:00] VITALS: BP 118/64
[2016-11-11 06:53] LABS: MEAN CORPUSCULAR HEMOGLOBIN 30.3 pg (27.0-33.0); MEAN CORPUSCULAR HGB CONC 32.3 g/dl (32.0-36.5); MEAN CORPUSCULAR VOLUME 93.7 fl (80.0-96.0); RED CELL DISTRIBUTION WIDTH 14.7 % (11.5-14.5); WHITE BLOOD COUNT 10.2 K/mm3 (4.0-10.0)
[2016-11-11 06:57] LABS: ANION GAP 8 MEQ/L (8-16); BLOOD UREA NITROGEN 30 MG/DL (7-18); CALCIUM LEVEL 8.9 MG/DL (8.8-10.2); CARBON DIOXIDE LEVEL 33 MEQ/L (21-32); CHLORIDE LEVEL 96 MEQ/L (98-107); CREATININE FOR GFR 1.15 MG/DL (0.70-1.30); GLOMERULAR FILTRATION RATE > 60.0 (>35); GLUCOSE, FASTING 149 MG/DL (83-110); POTASSIUM SERUM 3.5 MEQ/L (3.5-5.1); SODIUM LEVEL 137 MEQ/L (136-145)
[2016-11-11] MEDS: SYMBICORT 160/4.5MCG INHALER 6GM INH SCH ×2 (07:31→19:58)
[2016-11-11] MEDS: APIXABAN 5 MG TAB (ELIQUIS) PO SCH ×2 (09:05→20:40)
[2016-11-11] MEDS: BISOPROLOL FUMARATE 5 MG TAB PO SCH (09:05)
[2016-11-11] MEDS: ALLOPURINOL 300 MG TAB PO SCH (09:05)
[2016-11-11] MEDS: ASPIRIN 81 MG ENTERIC TAB PO SCH (09:05)
[2016-11-11] MEDS: TORSEMIDE 20 MG TAB PO SCH ×2 (09:05→20:40)
[2016-11-11] MEDS: HumaLOG INSULIN (NovoLOG) PER UNIT SC SCH ×4 (09:06→20:40)
[2016-11-11] MEDS: LISINOPRIL *2.5 MG* TAB PO SCH (09:06)
[2016-11-11 14:00] VITALS: BP 111/56
--- NOTE | 2016-11-11 17:51 | IPNPDOC ---
Assessment/Plan Date Seen The patient was seen on 11/11/16. Problems Problems: (1) Shortness of breath Status: Chronic Response to Treatment: Improving Discussed With: Patient Problem Specific Plan: Monitor Clinically Problem Text: Appears secondary to decompensated heart failure. Patient also has LING not compliant with CPAP. Echo reveals preserved systolic function. PO torsemide, supplemental O2 at his baseline requirements - 2L via nasal cannula. Will follow fluid status completed course of antibiotics (cef/azithro). Incentive spirometry ordered but patient has been very non-compliant. Discussed with daughter. Pt's breathing is approaching his baseline. Daughter is concerned about pt's home situation. He has intermittent confusion especially in the afternoon. He lives alone and family can not provide 24/7 care. Social service is consulted. Searching for placement options. (2) Altered mental status Status: Acute Problem Text: * Intermittent confusion with hallucination. * follow up with ABG, CXR, blood cultures, urine culture. (3) CAD (coronary artery disease) Status: Chronic Problem Text: Continue ASA, lisinopril, zebeta. (4) Afib Status: Chronic Problem Specific Plan: Monitor Clinically Problem Text: Rate controlled. Continue Zebeta. Continue Eliquis. (5) Non-compliance Status: Chronic Discussed With: Patient Problem Text: Further complicating factor to his medical care. (6) Morbid obesity Status: Acute Discussed With: Patient Problem Text: Further complicating factor to his medical care. (7) HTN (hypertension) Status: Chronic Problem Specific Plan: Monitor Clinically Problem Text: Lisinopril, Zebeta. (8) Dyslipidemia Status: Chronic Problem Text: Zocor (9) Gout Status: Chronic Discussed With: Patient (10) DM2 (diabetes mellitus, type 2) Status: Chronic Problem Specific Plan: Repeat Labs Problem Text: continue with FS and ISS (11) LING (obstructive sleep apnea) Status: Chronic Problem Text: * Severe LING. Unable to tolerate CPAP or BiPAP. * Patient is on LING protocol. On nasal canula. (12) Poor appetite Status: Chronic Response to Treatment: Controlled, Uncontrolled Problem Text: * Per family member, patient has been having poor appetite for several months. * Will consider start IV fluid support if patient continues have poor oral intake. (13) Systolic and diastolic CHF, acute on chronic Status: Acute Response to Treatment: Improving Problem Text: * Patient has been treated for CHF exacerbation. * Has systolic and diastolic CHF. (14) Hypoventilation associated with obesity Status: Acute (15) Tachy-robert syndrome Status: Chronic Problem Text: * Has dual chamber pacemaker. (16) Atelectasis Status: Acute Response to Treatment: Worse Problem Text: * Patient has been very non-compliant with incentive spirometry. Plan / VTE VTE Prophylaxis Ordered?: Yes (NOAC) Plan Diet: Continue Current Activity: Continue Current Therapy: PT Medications: Change to PO Anticipated Discharge: Home, Home With Services Subjective Review of Systems CC/HPI The patient is a 86-year-old male admitted with a reason for visit of [facility] [place]. Events since last encounter Patient is seen and examed in the room today with his son. His son is visiting from [place]. He has not used incentive spirometry for his atelectasis. He continues having very poor oral intake. He requires intermittent O2 support to maintain O2 sat above 90 %. Objective Physical Examination General Exam: Positive: Alert, Cooperative, No Acute Distress Eye Exam: Positive: Conjunctiva & lids normal, PERRLA ENT Exam: Positive: Atraumatic Neck Exam: Positive: Supple Chest Exam: Positive: Clear to auscultation, Diminished Heart Exam: Positive: Irregular Rhythm, Rate Normal Abdomen Exam: Positive: Normal bowel sounds, Other (obese), Soft, Negative: Tenderness Extremity Exam: Positive: Edema Psych Exam: Positive: Mental status NL, Mood NL, Oriented x 3 Vital Signs/I&O Vital Signs Date Time Temp Pulse Resp B/P Pulse Ox O2 Delivery O2 Flow Rate FiO2 11/11/16 14:00 96.5 73 20 111/56 94 Room Air 11/11/16 09:00 2.0 I&O- Last 24 Hours up to 6 AM 11/11/16 06:00 Intake Total 1260 ml Output Total 950 ml Balance 310 ml Laboratory Data Labs 24H Laboratory Tests 2 11/10/16 20:10: Bedside Glucose (Misc Panel) 211H 11/11/16 06:16: Anion Gap 8, C-Reactive Protein, Quantitative 6.51H, Blood Urea Nitrogen 30H, Creatinine 1.15, Sodium Level 137, Potassium Level 3.5, Chloride Level 96L, Carbon Dioxide Level 33H, Calcium Level 8.9, Glomerular Filtration Rate > 60.0 11/11/16 11:27: Bedside Glucose (Misc Panel) 137H 11/11/16 16:54: Bedside Glucose (Misc Panel) 86 CBC/BMP Laboratory Tests 11/11/16 06:16 Calcium Level 8.9, Red Blood Count 3.05 L, Mean Corpuscular Volume 93.7, Mean Corpuscular Hemoglobin 30.3, Mean Corpuscular Hemoglobin Concent 32.3, Red Cell Distribution Width 14.7 H FSBS Laboratory Tests Test 11/10/16 20:10 11/11/16 11:27 11/11/16 16:54 Range/Units Bedside Glucose (Misc Panel) 211 137 86 83-110 MG/DL Microbiology Microbiology 11/09/16 Blood Culture - Preliminary, Resulted No Growth after 48 hours. All Specime... 11/09/16 Blood Culture - Preliminary, Resulted No Growth after 48 hours. All Specime... 11/10/16 Urine Culture - Final, Complete EMMA CONTRERAS DO Nov 11, 2016 17:51
[2016-11-11 19:57] VITALS: O2SAT 96
[2016-11-11] MEDS: SIMVASTATIN 40 MG TAB PO SCH (20:40)
[2016-11-11] MEDS: VITAMIN D 1,000 INTERNATIONAL UNITS TABLET PO SCH (20:40)
[2016-11-11] MEDS: ACETAMINOPHEN TAB 650MG DOSE (2X325MG) PO PRN (20:41)
[2016-11-11 22:00] VITALS: BP 133/58
[2016-11-12] MEDS: IPRATROPIUM 0.5MG/ALBUTEROL 2.5MG INH SOL UD 3ML (DUONEB)(J7620) NEB SCH ×4 (02:00→19:20)
[2016-11-12 06:00] VITALS: BP 141/68
[2016-11-12 06:42] LABS: MEAN CORPUSCULAR HEMOGLOBIN 29.7 pg (27.0-33.0); MEAN CORPUSCULAR HGB CONC 31.8 g/dl (32.0-36.5); MEAN CORPUSCULAR VOLUME 93.5 fl (80.0-96.0); RED CELL DISTRIBUTION WIDTH 14.7 % (11.5-14.5); WHITE BLOOD COUNT 10.6 K/mm3 (4.0-10.0)
[2016-11-12 07:06] LABS: ANION GAP 11 MEQ/L (8-16); BLOOD UREA NITROGEN 32 MG/DL (7-18); CALCIUM LEVEL 9.3 MG/DL (8.8-10.2); CARBON DIOXIDE LEVEL 32 MEQ/L (21-32); CHLORIDE LEVEL 96 MEQ/L (98-107); CREATININE FOR GFR 1.19 MG/DL (0.70-1.30); GLOMERULAR FILTRATION RATE > 60.0 (>35); GLUCOSE, FASTING 121 MG/DL (83-110); POTASSIUM SERUM 3.1 MEQ/L (3.5-5.1); SODIUM LEVEL 139 MEQ/L (136-145)
[2016-11-12] MEDS: ACETAMINOPHEN TAB 650MG DOSE (2X325MG) PO PRN (08:07)
[2016-11-12] MEDS: HumaLOG INSULIN (NovoLOG) PER UNIT SC SCH ×4 (08:07→20:51)
[2016-11-12] MEDS: ALLOPURINOL 300 MG TAB PO SCH (08:08)
[2016-11-12] MEDS: TORSEMIDE 20 MG TAB PO SCH ×2 (08:08→20:51)
[2016-11-12] MEDS: LISINOPRIL *2.5 MG* TAB PO SCH (08:08)
[2016-11-12] MEDS: BISOPROLOL FUMARATE 5 MG TAB PO SCH (08:09)
[2016-11-12] MEDS: ASPIRIN 81 MG ENTERIC TAB PO SCH (08:09)
[2016-11-12] MEDS: SYMBICORT 160/4.5MCG INHALER 6GM INH SCH ×2 (11:10→19:19)
[2016-11-12] MEDS: APIXABAN 5 MG TAB (ELIQUIS) PO SCH ×2 (13:38→20:51)
[2016-11-12 14:00] VITALS: BP 133/66
--- NOTE | 2016-11-12 17:14 | IPNPDOC ---
Assessment/Plan Date Seen The patient was seen on 11/12/16. Problems Problems: (1) Shortness of breath Status: Chronic Response to Treatment: Improving Discussed With: Patient Problem Specific Plan: Monitor Clinically Problem Text: Appears secondary to decompensated heart failure. Patient also has LING not compliant with CPAP. Echo reveals preserved systolic function. PO torsemide, supplemental O2 at his baseline requirements - 1-2L via nasal cannula. Will follow fluid status completed course of antibiotics (cef/azithro). Incentive spirometry ordered but patient has been very non-compliant. Discussed with daughter. Pt's breathing is approaching his baseline. Daughter is concerned about pt's home situation. He has intermittent confusion especially in the afternoon. He lives alone and family can not provide 24/7 care. Social service is consulted. Searching for placement options. (2) Altered mental status Status: Acute Problem Text: * Intermittent confusion with hallucination most significantly in the afternoon. Improved in the past few days. (3) CAD (coronary artery disease) Status: Chronic Problem Text: Continue ASA, lisinopril, zebeta. (4) Afib Status: Chronic Problem Specific Plan: Monitor Clinically Problem Text: Rate controlled. Continue Zebeta. Continue Eliquis. (5) Non-compliance Status: Chronic Discussed With: Patient Problem Text: Further complicating factor to his medical care. (6) Morbid obesity Status: Acute Discussed With: Patient Problem Text: Further complicating factor to his medical care. (7) HTN (hypertension) Status: Chronic Problem Specific Plan: Monitor Clinically Problem Text: Lisinopril, Zebeta. (8) Dyslipidemia Status: Chronic Problem Text: Zocor (9) Gout Status: Chronic Discussed With: Patient (10) DM2 (diabetes mellitus, type 2) Status: Chronic Problem Specific Plan: Repeat Labs Problem Text: continue with FS and ISS (11) LING (obstructive sleep apnea) Status: Chronic Problem Text: * Severe LING. Unable to tolerate CPAP or BiPAP. * Patient is on LING protocol. On nasal canula. (12) Poor appetite Status: Chronic Response to Treatment: Controlled, Uncontrolled Problem Text: * Per family member, patient has been having poor appetite for several months. * Will consider start IV fluid support if patient continues have poor oral intake. (13) Systolic and diastolic CHF, acute on chronic Status: Acute Response to Treatment: Improving Problem Text: * Patient has been treated for CHF exacerbation. * Has systolic and diastolic CHF. (14) Hypoventilation associated with obesity Status: Chronic (15) Tachy-robert syndrome Status: Chronic Problem Text: * Has dual chamber pacemaker. (16) Atelectasis Status: Acute Response to Treatment: Worse Problem Text: * Patient has been very non-compliant with incentive spirometry. Plan / VTE VTE Prophylaxis Ordered?: Yes (NOAC) Plan Diet: Continue Current Activity: Continue Current Therapy: PT Medications: Change to PO Anticipated Discharge: Home, Home With Services Subjective Review of Systems CC/HPI The patient is a 86-year-old male admitted with a reason for visit of SOB. Events since last encounter Patient is seen and examed in the room today. Patient continues having poor appetite. Patient has not been compliant with incentive spirometry. No overnight event is reported. Objective Physical Examination General Exam: Positive: Alert, Cooperative, No Acute Distress Eye Exam: Positive: Conjunctiva & lids normal, PERRLA ENT Exam: Positive: Atraumatic Neck Exam: Positive: Supple Chest Exam: Positive: Clear to auscultation, Diminished Heart Exam: Positive: Irregular Rhythm, Rate Normal Abdomen Exam: Positive: Normal bowel sounds, Other (obese), Soft, Negative: Tenderness Extremity Exam: Positive: Edema Psych Exam: Positive: Mental status NL, Mood NL, Oriented x 3 Vital Signs/I&O Vital Signs Date Time Temp Pulse Resp B/P Pulse Ox O2 Delivery O2 Flow Rate FiO2 11/12/16 14:00 97.0 73 20 133/66 100 Nasal Cannula 1.0 I&O- Last 24 Hours up to 6 AM 11/12/16 06:00 Intake Total 1320 ml Output Total 651 ml Balance 669 ml Laboratory Data Labs 24H Laboratory Tests 2 11/11/16 20:40: Bedside Glucose (Misc Panel) 128H 11/12/16 06:19: Anion Gap 11, Blood Urea Nitrogen 32H, Creatinine 1.19, Sodium Level 139, Potassium Level 3.1L, Chloride Level 96L, Carbon Dioxide Level 32, Calcium Level 9.3, Glomerular Filtration Rate > 60.0 11/12/16 11:33: Bedside Glucose (Misc Panel) 138H 11/12/16 16:37: Bedside Glucose (Misc Panel) 95 CBC/BMP Laboratory Tests 11/12/16 06:19 Calcium Level 9.3, Red Blood Count 3.11 L, Mean Corpuscular Volume 93.5, Mean Corpuscular Hemoglobin 29.7, Mean Corpuscular Hemoglobin Concent 31.8 L, Red Cell Distribution Width 14.7 H FSBS Laboratory Tests Test 11/11/16 20:40 11/12/16 11:33 11/12/16 16:37 Range/Units Bedside Glucose (Misc Panel) 128 138 95 83-110 MG/DL Microbiology Microbiology 11/09/16 Blood Culture - Preliminary, Resulted No Growth after 72 hours. All specime... 11/09/16 Blood Culture - Preliminary, Resulted No Growth after 72 hours. All specime... 11/10/16 Urine Culture - Final, Complete EMMA CONTRERAS DO Nov 12, 2016 17:14
[2016-11-12] MEDS: SIMVASTATIN 40 MG TAB PO SCH (20:51)
[2016-11-12] MEDS: VITAMIN D 1,000 INTERNATIONAL UNITS TABLET PO SCH (20:51)
[2016-11-12 22:00] VITALS: BP 106/55
[2016-11-13] MEDS: IPRATROPIUM 0.5MG/ALBUTEROL 2.5MG INH SOL UD 3ML (DUONEB)(J7620) NEB SCH ×4 (01:12→19:28)
[2016-11-13 06:00] VITALS: BP 121/66
[2016-11-13 06:50] LABS: MEAN CORPUSCULAR HEMOGLOBIN 30.2 pg (27.0-33.0); MEAN CORPUSCULAR HGB CONC 32.8 g/dl (32.0-36.5); RED CELL DISTRIBUTION WIDTH 14.7 % (11.5-14.5); WHITE BLOOD COUNT 9.6 K/mm3 (4.0-10.0)
[2016-11-13 07:05] LABS: ANION GAP 8 MEQ/L (8-16); BLOOD UREA NITROGEN 30 MG/DL (7-18); CALCIUM LEVEL 9.2 MG/DL (8.8-10.2); CARBON DIOXIDE LEVEL 34 MEQ/L (21-32); CHLORIDE LEVEL 98 MEQ/L (98-107); CREATININE FOR GFR 1.12 MG/DL (0.70-1.30); GLOMERULAR FILTRATION RATE > 60.0 (>35); GLUCOSE, FASTING 113 MG/DL (83-110); POTASSIUM SERUM 3.6 MEQ/L (3.5-5.1); SODIUM LEVEL 140 MEQ/L (136-145)
[2016-11-13] MEDS: HumaLOG INSULIN (NovoLOG) PER UNIT SC SCH ×4 (07:30→21:16)
[2016-11-13] MEDS: LISINOPRIL *2.5 MG* TAB PO SCH (08:33)
[2016-11-13] MEDS: BISOPROLOL FUMARATE 5 MG TAB PO SCH (08:34)
[2016-11-13] MEDS: ALLOPURINOL 300 MG TAB PO SCH (08:35)
[2016-11-13] MEDS: APIXABAN 5 MG TAB (ELIQUIS) PO SCH ×2 (08:35→21:24)
[2016-11-13] MEDS: ASPIRIN 81 MG ENTERIC TAB PO SCH (08:35)
[2016-11-13] MEDS: TORSEMIDE 20 MG TAB PO SCH ×2 (08:36→21:24)
[2016-11-13] MEDS: SYMBICORT 160/4.5MCG INHALER 6GM INH SCH ×2 (09:19→21:00)
--- NOTE | 2016-11-13 10:40 | IPN ---
DATE: 11/13/2016 86-year-old gentleman seen at bedside. No complaints overnight. He is having quite a bit of loose stool this morning. He feels that his shortness of breath is close to being at baseline. He is oxygen dependent at home and uses 2 liters of oxygen. Denies chest pain. No nausea, vomiting. OBJECTIVE: Temperature is 98.5, pulse is 62, respiratory rate is 18, blood pressure 121/66, SpO2 is 96% on 2 liters. GENERAL: The patient appears to be in no acute distress. He is alert. HEENT: Unremarkable. LUNGS: Clear. HEART: Regular rate and rhythm. ABDOMEN: Soft. Hyperactive bowel sounds. No masses. No rebound. EXTREMITIES: No edema. No calf tenderness. I did notice that there was quite a bit of stool in the bed. He is sitting on a bedside commode currently and we will send stool for GI panel. White count is 9.6, hemoglobin 9.1, platelets 197,000. Sodium 140, potassium 3.6, chloride 98, bicarb 34, anion gap 8, BUN is 30, creatinine 1.12, glucose is 113. ASSESSMENT/PLAN: 1. Shortness of breath, likely was decompensated heart failure. 2D echo demonstrated preserved systolic function. Will continue with diuretics. Oxygen supplementation is at baseline. He had been treated previously for presumed lower respiratory infection and has completed Rocephin and azithromycin. 2. Altered mental status with intermittent confusion, hallucinations, most likely related to metabolic encephalopathy from underlying disease. This is resolved. 3. Coronary artery disease. Stable with no complaints. Continue aspirin, lisinopril and Zebeta. 4. Atrial fibrillation, chronic. He is rate controlled and anticoagulated on Eliquis. 5. Morbid obesity which could further complicate his medical care. 6. Hypertension, stable. 7. Dyslipidemia. Continue on Zocor. 8. Gout, stable. 9. Diabetes. Continue with fingersticks, sliding scale coverage and consistent carbohydrate diet. 10. Obstructive sleep apnea. LING protocol is in place. He has been noncompliant/unable to tolerate C-PAP or BiPAP at home. 11. Poor appetite. Does appear to be gradually improving. 12. Loose stool with difficulty controlling his bowels this morning. Will go ahead and send for a GI panel. 13. 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 This appears to be improving back to baseline. 14. Hypoventilation associated with obesity, stable. 15. Chronic tachybrady syndrome with dual chamber pacemaker. 16. Deep vein thrombosis (DVT) prophylaxis with Eliquis. DISPOSITION: Currently patient and family services (PFS) is on board and the patient is being evaluated for discharge home with services versus placement.
[2016-11-13 14:00] VITALS: BP 110/57
[2016-11-13 18:17] VITALS: BP 118/56
[2016-11-13] MEDS: SIMVASTATIN 40 MG TAB PO SCH (21:24)
[2016-11-13] MEDS: VITAMIN D 1,000 INTERNATIONAL UNITS TABLET PO SCH (21:24)
[2016-11-13 22:00] VITALS: BP 108/63
[2016-11-14] MEDS: IPRATROPIUM 0.5MG/ALBUTEROL 2.5MG INH SOL UD 3ML (DUONEB)(J7620) NEB SCH ×5 (00:28→21:13)
[2016-11-14 06:00] VITALS: BP 139/63
[2016-11-14] MEDS: SYMBICORT 160/4.5MCG INHALER 6GM INH SCH ×2 (07:06→21:13)
[2016-11-14 07:32] LABS: MEAN CORPUSCULAR HEMOGLOBIN 29.2 pg (27.0-33.0); MEAN CORPUSCULAR HGB CONC 29.8 g/dl (32.0-36.5); RED CELL DISTRIBUTION WIDTH 15.7 % (11.5-14.5)
[2016-11-14 07:55] LABS: ANION GAP 9 MEQ/L (8-16); BLOOD UREA NITROGEN 30 MG/DL (7-18); CALCIUM LEVEL 9.1 MG/DL (8.8-10.2); CARBON DIOXIDE LEVEL 30 MEQ/L (21-32); CHLORIDE LEVEL 99 MEQ/L (98-107); CREATININE FOR GFR 1.13 MG/DL (0.70-1.30); GLOMERULAR FILTRATION RATE > 60.0 (>35); GLUCOSE, FASTING 107 MG/DL (83-110); POTASSIUM SERUM 3.8 MEQ/L (3.5-5.1); SODIUM LEVEL 138 MEQ/L (136-145)
[2016-11-14 08:05] LABS: MEAN CORPUSCULAR VOLUME 97.9 fl (80.0-96.0)
[2016-11-14] MEDS: HumaLOG INSULIN (NovoLOG) PER UNIT SC SCH ×4 (08:18→20:08)
[2016-11-14] MEDS: ALLOPURINOL 300 MG TAB PO SCH (08:18)
[2016-11-14] MEDS: ASPIRIN 81 MG ENTERIC TAB PO SCH (08:18)
[2016-11-14] MEDS: BISOPROLOL FUMARATE 5 MG TAB PO SCH (08:18)
[2016-11-14] MEDS: APIXABAN 5 MG TAB (ELIQUIS) PO SCH ×2 (08:19→20:03)
[2016-11-14] MEDS: LISINOPRIL *2.5 MG* TAB PO SCH (08:19)
[2016-11-14] MEDS: TORSEMIDE 20 MG TAB PO SCH ×2 (08:19→20:03)
[2016-11-14 14:00] VITALS: BP 109/64
[2016-11-14] MEDS: ACETAMINOPHEN TAB 650MG DOSE (2X325MG) PO PRN (14:48)
--- NOTE | 2016-11-14 18:10 | IPN ---
DATE: 11/14/2016 SUBJECTIVE: The patient seen and examined. Limited history secondary to dementia. No new complaints overnight. Denies any chest pain, pressure, discomfort. Denies any nausea or vomiting. VITAL SIGNS: Temperature 96.5, pulse 63, respirations 20, blood pressure 109/64, pulse oximetry 98% on two liters nasal cannula. LABORATORY DATA: WBC 11, hemoglobin and hematocrit 8.8 over 29.7, platelets 184. Chemistry: Sodium 138, potassium 3.8, chloride 99, bicarbonate 30, BUN 30, creatinine 1.13. GI panel negative. Blood culture negative today. PHYSICAL EXAMINATION: GENERAL: Patient comfortable in no acute distress. HEENT: Normocephalic, atraumatic. PULMONARY: Bilaterally clear to auscultation. CARDIAC: Regular rate and rhythm. Normal S1, S2. Distant heart sounds. ABDOMEN: Soft. Normoactive bowel sounds. No mass. Obese. No rebound, no guarding. EXTREMITIES: No edema bilateral lower extremities. ASSESSMENT AND PLAN: This is an 86-year-old male patient with underlying medical history of coronary arterial disease, atrial fibrillation on Eliquis, dyslipidemia, hypertension, initially presented to the emergency room for shortness of breath. 1. Shortness of breath likely secondary to decompensated heart failure. Echo appreciated showing preserved ejection fraction, likely diastolic dysfunction. Diuretic has been ordered. Oxygen supplementation is at baseline. Treated empirically for a lower respiratory tract infection with Rocephin and Zithromax. Continue diuretics as ordered. Monitor fluid studies. Continue angiotension-converting enzyme (SADIA) inhibitors, torsemide, aspirin, Eliquis. 2. Altered mental status with intermittent confusion, hallucinations, mostly related to metabolic encephalopathy from underlying disease. Currently resolved. 3. Coronary arterial disease. Continue aspirin, lisinopril, Zebeta. The patient also on Eliquis for atrial fibrillation. 4. Atrial fibrillation, chronic. Patient on anticoagulation with Eliquis. Continue beta denys. 5. Morbid obesity complicating care. 6. Hypertension. Continue blood pressure medication. 7. Dyslipidemia. Continue statin. 8. Gout. Currently stable. Continue home medications. 9. Diabetes. Consistent carbohydrate diet. Insulin as per protocol. 10. Obstructive sleep apnea. LING protocol in place. Noncompliant with continuous positive airway pressure (CPAP). 11. Poor appetite, improving. 12. Loose stool. Gastrointestinal (GI) panel negative. Continue to monitor. 13. Obesity hypoventilation syndrome. Refused CPAP. Monitor oxygen saturation. Oxygen supplementation. 14. Chronic tachy-robert syndrome with dual-chamber pacemaker. 15. Deep venous thrombosis (DVT) prophylaxis. Patient on Eliquis. DISPOSITION: Pending patient and family services (PFS), possible placement.
[2016-11-14 20:00] VITALS: BP 118/64
[2016-11-14] MEDS: SIMVASTATIN 40 MG TAB PO SCH (20:03)
[2016-11-14] MEDS: VITAMIN D 1,000 INTERNATIONAL UNITS TABLET PO SCH (20:03)
[2016-11-15] MEDS: ACETAMINOPHEN TAB 650MG DOSE (2X325MG) PO PRN ×2 (01:02→05:31)
[2016-11-15 06:00] VITALS: BP 95/59
[2016-11-15 07:04] LABS: MEAN CORPUSCULAR HEMOGLOBIN 30.4 pg (27.0-33.0); MEAN CORPUSCULAR VOLUME 94.8 fl (80.0-96.0); RED CELL DISTRIBUTION WIDTH 15.6 % (11.5-14.5); WHITE BLOOD COUNT 10.2 K/mm3 (4.0-10.0)
[2016-11-15 07:07] LABS: ANION GAP 8 MEQ/L (8-16); BLOOD UREA NITROGEN 27 MG/DL (7-18); CARBON DIOXIDE LEVEL 31 MEQ/L (21-32); CHLORIDE LEVEL 99 MEQ/L (98-107); CREATININE FOR GFR 1.06 MG/DL (0.70-1.30); GLOMERULAR FILTRATION RATE > 60.0 (>35); GLUCOSE, FASTING 111 MG/DL (83-110); POTASSIUM SERUM 3.8 MEQ/L (3.5-5.1); SODIUM LEVEL 138 MEQ/L (136-145)
[2016-11-15] MEDS: SYMBICORT 160/4.5MCG INHALER 6GM INH SCH ×2 (07:24→20:42)
[2016-11-15] MEDS: IPRATROPIUM 0.5MG/ALBUTEROL 2.5MG INH SOL UD 3ML (DUONEB)(J7620) NEB SCH ×3 (07:25→18:54)
[2016-11-15] MEDS: HumaLOG INSULIN (NovoLOG) PER UNIT SC SCH ×4 (08:18→21:00)
[2016-11-15] MEDS: ASPIRIN 81 MG ENTERIC TAB PO SCH (08:19)
[2016-11-15] MEDS: APIXABAN 5 MG TAB (ELIQUIS) PO SCH ×2 (08:19→21:50)
[2016-11-15] MEDS: ALLOPURINOL 300 MG TAB PO SCH (08:19)
[2016-11-15] MEDS: TORSEMIDE 20 MG TAB PO SCH ×2 (08:20→21:51)
[2016-11-15] MEDS: BISOPROLOL FUMARATE 5 MG TAB PO SCH (08:23)
[2016-11-15] MEDS: LISINOPRIL *2.5 MG* TAB PO SCH (08:24)
[2016-11-15 14:00] VITALS: BP 117/68
--- NOTE | 2016-11-15 20:52 | DSES ---
DATE OF ADMISSION: 10/30/2016 DATE OF DISCHARGE: PRIMARY CARE PROVIDER: Dr. Henderson FINAL DIAGNOSES: 1. Shortness of breath secondary to decompensated diastolic congestive heart failure with preserved ejection fraction. 2. Altered mental status. 3. Metabolic encephalopathy. 4. Coronary artery disease. 5. Atrial fibrillation, chronic. 6. Morbid obesity. 7. Hypertension. 8. Dyslipidemia. 9. Gout. 10. Type 2 diabetes. 11. Obstructive sleep apnea. 12. Poor appetite. 13. Diarrhea. 14. Obesity. 15. Hypoventilation syndrome. 16. Chronic tachybrady syndrome. HISTORY OF PRESENT ILLNESS: This is an 86-year-old male patient with underlying medical history of coronary artery disease, atrial fibrillation on Eliquis, dyslipidemia, hypertension, presented to the emergency room with complaints of shortness of breath for the last couple of days noted at rest, worse with exertion. The patient is unable to walk more than 15-20 feet without difficulty. Denies any chest pain, pressure, tightness, coughing, fever, chills, palpitations, lightheadedness, dizziness, epigastric pain, diaphoresis. Denies any bright red blood per rectum, melena. Patient complains of slight orthopnea, shortness of breath is worse when he lays flat, usually sleeps on two pillows. No headaches, change of vision, change of appetite, nausea, vomiting, abdominal pain. In the emergency room patient was found to be hypoxic down to 80% on room air. CT chest shows no pulmonary embolism, right pleural reaction, no pulmonary edema. White cell count was elevated at 16,000, troponin negative. EKG is unremarkable. Brain natriuretic peptide (BNP) slightly elevated at 382. Arterial blood gas (ABG) shows slight elevation of CO2 at 51.1. Hospitalist service called for admission for shortness of breath, possible infection versus basilar atelectasis. HOSPITAL COURSE: Patient was admitted to the hospital. Fluid restrictions were observed. Initially monitored in progressive care unit (PCU) under telemetry. Strict intake and output, daily weight. Lasix was given to keep net negative balance. Kidney function was monitored. Anticoagulation with Eliquis and beta denys were continued. Patient's home medication of a statin was continued. Insulin was given and consistent carbohydrate diet. Fingersticks were monitored. resolution specialist was consulted for venous stasis ulcer. Echo appreciated showing no preserved ejection fraction, diastolic dysfunction. Patient was also treated for possible community-acquired bacterial pneumonia with Rocephin and azithromycin. Patient also developed metabolic encephalopathy during the hospital course, improved with treatment for underling conditions including underlying congestive heart failure (CHF) and infection. Cultures were appreciated. Patient's condition progressively improved. Mental status also improved. Physical therapy was done. Gastrointestinal (GI) panel was negative for diarrhea and diarrhea also improved. Case was discussed with family and patient and family services (PFS) was involved. As per family, the patient is not able to care for himself at home, would like potential placement. Subsequently, PFS was involved for placement. Patient currently is much improved, ready for discharge for further care as outpatient, tolerating oral, asymptomatic. VITAL SIGNS: Temperature 96.8, pulse 74, respirations 18, blood pressure 117/68 , pulse oximetry 100% on 2 liters nasal cannula. LABORATORY DATA: WBC 10.2, hemoglobin and hematocrit 9/28.2, platelets 171. Chemistry: Sodium 138, potassium 3.8, chloride 99, bicarbonate 31, BUN 27, creatinine 1.06. DISCHARGE MEDICATIONS: - allopurinol 300 mg by mouth daily - Eliquis 5 mg by mouth twice a day - aspirin 81 mg by mouth daily - bisoprolol 2.5 mg by mouth daily - Symbicort 160/4.5 mcg two puffs twice a day - vitamin D 5000 units by mouth every evening - glimepiride 1 mg by mouth daily - lisinopril 2.5 mg by mouth daily - Zocor 80 mg by mouth every morning - torsemide 40 mg by mouth every morning and 20 mg by mouth every evening DISCHARGE INSTRUCTIONS: Patient was instructed to followup with primary care provider in 7 days after discharge. Return to the hospital if symptoms worsen. Patient likely to be discharged to assisted facility on 11/16/2016 pending placement by social work. edited: 11/15/2016 1725 dougie SNYDER
[2016-11-15] MEDS: VITAMIN D 1,000 INTERNATIONAL UNITS TABLET PO SCH (21:50)
[2016-11-15] MEDS: SIMVASTATIN 40 MG TAB PO SCH (21:51)
[2016-11-15 22:00] VITALS: BP 109/55
[2016-11-16 06:00] VITALS: BP 104/55
[2016-11-16 07:08] LABS: MEAN CORPUSCULAR HEMOGLOBIN 29.4 pg (27.0-33.0); MEAN CORPUSCULAR HGB CONC 31.9 g/dl (32.0-36.5); MEAN CORPUSCULAR VOLUME 92.2 fl (80.0-96.0); RED CELL DISTRIBUTION WIDTH 15.8 % (11.5-14.5); WHITE BLOOD COUNT 11.7 K/mm3 (4.0-10.0)
[2016-11-16 07:21] LABS: ANION GAP 4 MEQ/L (8-16); BLOOD UREA NITROGEN 22 MG/DL (7-18); CALCIUM LEVEL 8.6 MG/DL (8.8-10.2); CARBON DIOXIDE LEVEL 36 MEQ/L (21-32); CHLORIDE LEVEL 98 MEQ/L (98-107); GLOMERULAR FILTRATION RATE > 60.0 (>35); GLUCOSE, FASTING 103 MG/DL (83-110); MAGNESIUM LEVEL 1.8 MG/DL (1.8-2.4); POTASSIUM SERUM 3.9 MEQ/L (3.5-5.1); SODIUM LEVEL 138 MEQ/L (136-145)
[2016-11-16] MEDS: IPRATROPIUM 0.5MG/ALBUTEROL 2.5MG INH SOL UD 3ML (DUONEB)(J7620) NEB SCH (08:00)
[2016-11-16] MEDS: SYMBICORT 160/4.5MCG INHALER 6GM INH SCH (08:20)
[2016-11-16] MEDS: ALLOPURINOL 300 MG TAB PO SCH (08:51)
[2016-11-16] MEDS: TORSEMIDE 20 MG TAB PO SCH (08:51)
[2016-11-16] MEDS: LISINOPRIL *2.5 MG* TAB PO SCH (08:51)
[2016-11-16] MEDS: APIXABAN 5 MG TAB (ELIQUIS) PO SCH (08:51)
[2016-11-16 08:52] VITALS: BP 104/55
[2016-11-16] MEDS: HumaLOG INSULIN (NovoLOG) PER UNIT SC SCH (08:52)
[2016-11-16] MEDS: BISOPROLOL FUMARATE 5 MG TAB PO SCH (08:52)
[2016-11-16] MEDS: ASPIRIN 81 MG ENTERIC TAB PO SCH (08:52)
--- NOTE | 2016-11-16 15:34 | DSES ---
DATE OF ADMISSION: 10/30/2016 DATE OF DISCHARGE: 11/16/2016 Patient is safely discharged to [facility] today. No acute issues overnight. Patient is medically stable. Please refer to prior discharge summary on 11/15/2016, by Dr. Jessika Calix.
== END 2016-11-16 10:30 | DRG 291 ==
LOC: M ED 11:42 → M ED INP 18:23 → M ICU 10-31 13:07 → M PCU 11-01 10:58 → M MS5PR 11-02 14:43 → M ALC 11-13 18:10
PROVIDERS: ADMIT General Practice; ATTEND Hospitalist
DX: I50.31 Acute diastolic (congestive) heart failure (principal); J15.9 Unspecified bacterial pneumonia; G93.41 Metabolic encephalopathy; Z68.41 Body mass index [BMI] 40.0-44.9, adult; E66.2 Morbid (severe) obesity with alveolar hypoventilation; I25.10 Atherosclerotic heart disease of native coronary artery without angina pectoris; G47.33 Obstructive sleep apnea (adult) (pediatric); E11.9 Type 2 diabetes mellitus without complications; M10.9 Gout, unspecified; I48.91 Unspecified atrial fibrillation; E78.5 Hyperlipidemia, unspecified; I49.5 Sick sinus syndrome; R19.7 Diarrhea, unspecified; R63.0 Anorexia; I10 Essential (primary) hypertension; Z79.899 Other long term (current) drug therapy; Z79.82 Long term (current) use of aspirin; Z95.0 Presence of cardiac pacemaker; I27.89 Other specified pulmonary heart diseases; Z91.19 Patient's noncompliance with other medical treatment and regimen; I87.2 Venous insufficiency (chronic) (peripheral)

== ENCOUNTER → 2016-11-22 | Outpatient (REF) ==
[~2016-11-22] MED LIST changes: +TORS20TA2 PO; +VITA500046 PO
[2016-11-22 08:37] LABS: MEAN CORPUSCULAR HEMOGLOBIN 29.9 pg (27.0-33.0); MEAN CORPUSCULAR HGB CONC 31.8 g/dl (32.0-36.5); MEAN CORPUSCULAR VOLUME 94.1 fl (80.0-96.0); RED CELL DISTRIBUTION WIDTH 14.7 % (11.5-14.5); WHITE BLOOD COUNT 8.2 K/mm3 (4.0-10.0)
[2016-11-22 08:48] LABS: ANION GAP 6 MEQ/L (8-16); BLOOD UREA NITROGEN 25 MG/DL (7-18); CALCIUM LEVEL 9.2 MG/DL (8.8-10.2); CARBON DIOXIDE LEVEL 34 MEQ/L (21-32); CHLORIDE LEVEL 100 MEQ/L (98-107); CREATININE FOR GFR 1.16 MG/DL (0.70-1.30); GLOMERULAR FILTRATION RATE > 60.0 (>35); GLUCOSE, FASTING 94 MG/DL (83-110); SODIUM LEVEL 140 MEQ/L (136-145)
== END ==
LOC: SKLAB5 08:14
PROVIDERS: ATTEND Internal Medicine
DX: J44.9 Chronic obstructive pulmonary disease, unspecified (principal)

== ENCOUNTER → 2016-11-28 | Outpatient (CLI) | payer MEDICARE ==
--- NOTE | 2016-11-28 15:07 | REP ---
LUMBAR SPINE: HISTORY: Back pain. There is no acute fracture or subluxation. There is an old compression fracture of the T12 vertebral body with minimal height loss. The intervertebral discs are decreased in height consistent with disc degeneration. Osteophytes are present throughout the lumbar spine. There is sclerosis of the L3-4 through L5-S1 facets. There is narrowing of the right L3-4 through L5-S1 and left L4-5 and L5-S1 facets. There is scoliosis convex to the left. IMPRESSION: Degenerative change, as described above. Signed by Alfonso Miller MD 11/28/2016 03:09 P
== END ==
LOC: SKLAB5 11-26 07:00 → M RAD 07:00 → EDSTATUS 12-17 09:14
PROVIDERS: ATTEND Internal Medicine
DX: M51.36 Other intervertebral disc degeneration, lumbar region (principal); M51.37 Other intervertebral disc degeneration, lumbosacral region

== ENCOUNTER → 2016-11-30 | Outpatient (REF) | payer MEDICARE | LOC: SKLAB5 04:58 | PROVIDERS: ATTEND Internal Medicine | DX: J44.9 Chronic obstructive pulmonary disease, unspecified (principal); I50.9 Heart failure, unspecified; M54.9 Dorsalgia, unspecified ==

== ENCOUNTER → 2016-12-01 | Outpatient (REF) | payer MEDICARE | LOC: SKLAB5 14:56 | PROVIDERS: ATTEND Internal Medicine | DX: J44.9 Chronic obstructive pulmonary disease, unspecified (principal); I50.9 Heart failure, unspecified; M54.9 Dorsalgia, unspecified ==

== ENCOUNTER → 2016-12-20 | Outpatient (REF) | payer MEDICARE ==
[2016-12-20 09:00] LABS: MEAN CORPUSCULAR HEMOGLOBIN 29.7 pg (27.0-33.0); MEAN CORPUSCULAR HGB CONC 31.5 g/dl (32.0-36.5); MEAN CORPUSCULAR VOLUME 94.4 fl (80.0-96.0); RED CELL DISTRIBUTION WIDTH 15.6 % (11.5-14.5); WHITE BLOOD COUNT 9.4 K/mm3 (4.0-10.0)
[2016-12-20 09:21] LABS: CREATININE FOR GFR 1.5 MG/DL (0.70-1.30); GLOMERULAR FILTRATION RATE 47.5 (>35); POTASSIUM SERUM 4.4 MEQ/L (3.5-5.1)
== END ==
LOC: SKLAB5 08:56
PROVIDERS: ATTEND Internal Medicine
DX: I10 Essential (primary) hypertension (principal); I25.10 Atherosclerotic heart disease of native coronary artery without angina pectoris

== ENCOUNTER → 2016-12-27 | Outpatient (REF) | payer MEDICARE ==
[2016-12-27 09:16] LABS: MEAN CORPUSCULAR HEMOGLOBIN 29.3 pg (27.0-33.0); MEAN CORPUSCULAR VOLUME 91.6 fl (80.0-96.0); RED CELL DISTRIBUTION WIDTH 15.3 % (11.5-14.5); WHITE BLOOD COUNT 10.3 K/mm3 (4.0-10.0)
[2016-12-27 09:24] LABS: CALCIUM LEVEL 8.9 MG/DL (8.8-10.2); CREATININE FOR GFR 1.94 MG/DL (0.70-1.30); GLOMERULAR FILTRATION RATE 35.3 (>35); PERCENT SATURATION 10.8 % (19.7-37.4); POTASSIUM SERUM 4.3 MEQ/L (3.5-5.1)
== END ==
LOC: SKLAB5 07:43
PROVIDERS: ATTEND Internal Medicine
DX: D64.9 Anemia, unspecified (principal)

== ENCOUNTER → 2016-12-31 | Outpatient (REF) | payer MEDICARE | LOC: SKLAB5 07:45 | PROVIDERS: ATTEND Internal Medicine | DX: D64.9 Anemia, unspecified (principal) ==

== ENCOUNTER → 2017-01-03 | Outpatient (REF) | payer MEDICARE | LOC: SKLAB5 07:25 | PROVIDERS: ATTEND Internal Medicine | DX: D64.9 Anemia, unspecified (principal) ==

== ENCOUNTER → 2017-01-10 | Outpatient (REF) | payer MEDICARE | LOC: SKLAB5 12:02 | PROVIDERS: ATTEND Internal Medicine | DX: D64.9 Anemia, unspecified (principal) ==

== ENCOUNTER → 2017-01-17 | Outpatient (REF) | payer MEDICARE ==
[2017-01-17 09:27] LABS: ALBUMIN 2.1 GM/DL (3.2-5.2); ANION GAP 8 MEQ/L (8-16); BLOOD UREA NITROGEN 25 MG/DL (7-18); CALCIUM LEVEL 8.5 MG/DL (8.8-10.2); CARBON DIOXIDE LEVEL 31 MEQ/L (21-32); CHLORIDE LEVEL 96 MEQ/L (98-107); CREATININE FOR GFR 1.22 MG/DL (0.70-1.30); GLOMERULAR FILTRATION RATE > 60.0 (>35); GLUCOSE, FASTING 105 MG/DL (83-110); PHOSPHORUS LEVEL 3.6 MG/DL (2.5-4.9); POTASSIUM SERUM 3.7 MEQ/L (3.5-5.1); SODIUM LEVEL 135 MEQ/L (136-145)
== END ==
LOC: SKLAB5 06:31
PROVIDERS: ATTEND Internal Medicine
DX: N28.9 Disorder of kidney and ureter, unspecified (principal)

== ENCOUNTER 2017-01-21 12:35 | Outpatient (CLI) | payer MEDICARE ==
[~2017-01-21 12:35] MED LIST changes: +ACETAMINOPHEN TAB 650MG DOSE (2X325MG) PO SCH; +diphenhydrAMINE 25 MG CAP PO SCH
[2017-01-21] MEDS ORDERED: FUROSEMIDE 20 MG/2 ML VIAL (J1940) IV ONE (12:45)
== END 2017-01-21 20:04 ==
LOC: M MSPAV 12:35 → M OPCLI4PV 12:35
PROVIDERS: ATTEND Internal Medicine
DX: D64.9 Anemia, unspecified (principal)
CPT/HCPCS: 36415; 36430; 80048; 85027; 86850; 86900; 86901; 86920; J1940; P9016

== ENCOUNTER → 2017-01-21 | Outpatient (REF) | payer MEDICARE ==
[~2017-01-21] MED LIST changes: +LISI2.5T76 PO; -LISI25TA PO
[2017-01-21 09:04] LABS: MEAN CORPUSCULAR HEMOGLOBIN 27.6 pg (27.0-33.0); MEAN CORPUSCULAR HGB CONC 29.8 g/dl (32.0-36.5); MEAN CORPUSCULAR VOLUME 92.4 fl (80.0-96.0); RED CELL DISTRIBUTION WIDTH 15.8 % (11.5-14.5); WHITE BLOOD COUNT 11.7 K/mm3 (4.0-10.0)
[2017-01-21 09:29] LABS: CALCIUM LEVEL 8.4 MG/DL (8.8-10.2); CREATININE FOR GFR 1.33 MG/DL (0.70-1.30); GLOMERULAR FILTRATION RATE 54.5 (>35); POTASSIUM SERUM 4.1 MEQ/L (3.5-5.1)
== END ==
LOC: SKLAB5 06:30
PROVIDERS: ATTEND Internal Medicine
DX: D64.9 Anemia, unspecified (principal)

== ENCOUNTER → 2017-01-24 | Outpatient (REF) | payer MEDICARE ==
[~2017-01-24] MED LIST changes: -ACETAMINOPHEN TAB 650MG DOSE (2X325MG) PO SCH; +ALBU83IN INH; +BENCRE TOP; +BUDE0.5S6 INH; +CELE10TA PO; +DULC10SU2 PR; +FERR325T3 PO; +MIRT1TAB PO; +MOM30SS PO; +MULTCAP PO; +PRIL20CA9 PO; +TRAZ50TA4 PO; +TYLE325T5 PO; +VITA200038 PO; +XANA0.25 PO; +ZOCO40TA PO; -diphenhydrAMINE 25 MG CAP PO SCH
== END ==
LOC: SKLAB5 08:00
PROVIDERS: ATTEND Internal Medicine
DX: D64.9 Anemia, unspecified (principal); E11.9 Type 2 diabetes mellitus without complications

== ENCOUNTER → 2017-01-30 | Outpatient (REF) | payer MEDICARE ==
--- NOTE | 2017-01-31 12:42 | ECGEPIP ---
Stationary ECG Study [facility] Test Date: 2017-01-30 Pat Name: MITCH MILLIGAN Department: Room: - Gender: M Certified Nursing Attendant: : [id number] Requested By: EMMY Atwood Order Number: [id number] Reading MD: Anil Hendrickson Measurements Intervals [place] Rate: 41 P: TN: 0 QRS: -68 QRSD: 156 T: 93 QT: 518 QTc: 429 Interpretive Statements Underlying atrial fibrillation Ventricular paced rhythm with intermittent malcapture Paced QRS complexes with leftward axis and Left bundle branch block configuration in keeping with RV apical stimulation Occasional spontaneous complexes with narrow QRS and ST/T-wave abnormalities Considerably more ventricular pacing from prior study in 10/30/16. Electronically Signed On 01-31-2017 12:42:17 EDT by Anil Hendrickson
== END ==
LOC: SKLAB5 09:24
PROVIDERS: ATTEND Internal Medicine
DX: R00.1 Bradycardia, unspecified (principal); R94.31 Abnormal electrocardiogram [ECG] [EKG]

== ENCOUNTER → 2017-02-14 | Outpatient (REF) | payer MEDICARE, MEDICAID ==
[2017-02-14 14:07] LABS: MEAN CORPUSCULAR HEMOGLOBIN 28.3 pg (27.0-33.0); MEAN CORPUSCULAR HGB CONC 30.9 g/dl (32.0-36.5); MEAN CORPUSCULAR VOLUME 91.6 fl (80.0-96.0); WHITE BLOOD COUNT 12.5 K/mm3 (4.0-10.0)
[2017-02-14 14:44] LABS: ANION GAP 9 MEQ/L (8-16); BLOOD UREA NITROGEN 22 MG/DL (7-18); CALCIUM LEVEL 8.2 MG/DL (8.8-10.2); CARBON DIOXIDE LEVEL 33 MEQ/L (21-32); CHLORIDE LEVEL 93 MEQ/L (98-107); CREATININE FOR GFR 1.12 MG/DL (0.70-1.30); GLOMERULAR FILTRATION RATE > 60.0 (>35); GLUCOSE, FASTING 202 MG/DL (83-110); POTASSIUM SERUM 4.1 MEQ/L (3.5-5.1); SODIUM LEVEL 135 MEQ/L (136-145)
== END ==
LOC: SKLAB5 13:04
PROVIDERS: ATTEND Internal Medicine
DX: N39.0 Urinary tract infection, site not specified (principal)

== ENCOUNTER → 2017-02-15 | Outpatient (REF) | payer MEDICARE, MEDICAID | LOC: M LAB REF 09:14 | PROVIDERS: ATTEND Internal Medicine | DX: E11.9 Type 2 diabetes mellitus without complications (principal); I10 Essential (primary) hypertension; D64.9 Anemia, unspecified; I25.10 Atherosclerotic heart disease of native coronary artery without angina pectoris; J44.9 Chronic obstructive pulmonary disease, unspecified; I48.91 Unspecified atrial fibrillation; F03.91 Unspecified dementia, unspecified severity, with behavioral disturbance; Z79.899 Other long term (current) drug therapy ==

== ENCOUNTER → 2017-02-21 | Outpatient (REF) | payer MEDICARE, MEDICAID ==
[2017-02-21 10:23] LABS: MEAN CORPUSCULAR VOLUME 93.4 fl (80.0-96.0); WHITE BLOOD COUNT 14.2 K/mm3 (4.0-10.0)
[2017-02-21 10:37] LABS: ANION GAP 8 MEQ/L (8-16); BLOOD UREA NITROGEN 24 MG/DL (7-18); CALCIUM LEVEL 8.8 MG/DL (8.8-10.2); CARBON DIOXIDE LEVEL 37 MEQ/L (21-32); CHLORIDE LEVEL 98 MEQ/L (98-107); CREATININE FOR GFR 1.06 MG/DL (0.70-1.30); GLOMERULAR FILTRATION RATE > 60.0 (>35); GLUCOSE, FASTING 147 MG/DL (83-110); POTASSIUM SERUM 3.6 MEQ/L (3.5-5.1); SODIUM LEVEL 143 MEQ/L (136-145)
== END ==
LOC: SKLAB5 07:14
PROVIDERS: ATTEND Internal Medicine
DX: I10 Essential (primary) hypertension (principal); D64.9 Anemia, unspecified

== ENCOUNTER → 2017-03-01 | Outpatient (REF) | payer MEDICARE, MEDICAID ==
[2017-03-01 08:26] LABS: INR 1.07
[2017-03-01 08:42] LABS: ALBUMIN 1.8 GM/DL (3.2-5.2); ALBUMIN/GLOBULIN RATIO 0.38 (1.00-1.93); BILIRUBIN,DIRECT 0.2 MG/DL (0.0-0.2); BILIRUBIN,TOTAL 0.5 MG/DL (0.2-1.0); TOTAL PROTEIN 6.6 GM/DL (6.4-8.2)
== END ==
LOC: SKLAB5 07:07
PROVIDERS: ATTEND Internal Medicine
DX: R14.0 Abdominal distension (gaseous) (principal)

== ENCOUNTER → 2017-03-02 | Outpatient (CLI) | payer MEDICARE, MEDICAID ==
[2017-03-02 12:03] LABS: MEAN CORPUSCULAR HEMOGLOBIN 27.9 pg (27.0-33.0); MEAN CORPUSCULAR VOLUME 93.1 fl (80.0-96.0); RED CELL DISTRIBUTION WIDTH 17.4 % (11.5-14.5)
== END ==
LOC: SKLAB5 10:19 → M RAD 10:19
PROVIDERS: ATTEND Internal Medicine
DX: R07.9 Chest pain, unspecified (principal)

== ENCOUNTER → 2017-03-02 | Outpatient (REF) | payer MEDICARE, MEDICAID ==
--- NOTE | 2017-03-02 14:19 | REP ---
PORTABLE CHEST: AP portable view of the chest is performed. Comparison 11/09/2016. There is cardiomegaly and vascular congestion. There appears to be diffuse interstitial edema. There are mild bibasilar infiltrates and probable small effusions. There is calcification and tortuosity of the thoracic aorta. Left dual lead pacemaker is again noted. IMPRESSION: Findings compatible with CHF and pulmonary edema. Signed by Dave Hansen MD 03/02/2017 07:49 P
== END ==
LOC: M RAD 12:54
PROVIDERS: ATTEND Family Medicine
DX: R07.9 Chest pain, unspecified (principal)